=== PATIENT | female | born 1980 | race Caucasian/White ===

== ENCOUNTER → 2016-12-06 | Outpatient (CLI) | payer BC ==
--- NOTE | 2016-12-06 09:53 | USB ---
Reason for exam: clinical finding. History: Family history of breast cancer in maternal grandmother at age 74. Took hormonal contraceptives for 1 month. Indicated problem(s): pain in both breasts. Physical Findings: Nurse Summary: pt states palpable on left has increased in size 4 o'clock palpable 2c oval, mobile, only faint rash noted by nurse left breast 12 o'clock (nurse renata). US Breast LT Left breast ultrasound including all four quadrants, the retroareolar region and axilla demonstrates a 0.3 x 0.3 x 0.3cm lesion too small to characterize at 6 o'clock, a 0.2 x 0.2 x 0.1cm lesion too small to characterize at 9 o'clock and a 0.7 x 0.5 x 0.3cm oval, mixed lesion at 11 o'clock. These results were verbally communicated with the patient and result sheet given to the patient on 12/06/16. ASSESSMENT: Probably benign, BI-RAD 3 RECOMMENDATION: Ultrasound of the left breast in 6 months. Manage patient on a clinical basis.
== END | disposition home or self-care (01) ==
LOC: RADUSWWP 09:01
PROVIDERS: ATTEND Surgery
DX: N60.09 Solitary cyst of unspecified breast (principal)

== ENCOUNTER 2016-12-29 08:22 | Day surgery (SDC) | payer BC ==
[2016-12-24 16:12] VITALS: BMI 29.6
--- NOTE | 2016-12-29 08:17 | P.GSHP ---
History of Present Illness H&P Date: 12/29/16 Chief Complaint: Left breast mass Patient here today for left breast biopsy. She was seen in late October. She saw her guest specialist prior to that to felt a small lump in the left breast laterally. She has been able to feel a mass in that area since 2 years ago. Mild pain at times. She had a mammogram that was normal. An ultrasound was performed which showed a few small cystic appearing lesions that were not in the location of the palpable mass. She is family history of breast cancer and her grandmother. No prior biopsies. Past Medical History Past Medical History: Thyroid Disorder Additional Past Medical History / Comment(s): BULGING DISC. HYPERPARATHYROID History of Any Multi-Drug Resistant Organisms: None Reported Past Surgical History: Adenoidectomy Additional Past Surgical History / Comment(s): SUB THYROIDECTOMY. BMT. WISDOM TEETH PULLED UNDER ANESTHESIA Past Anesthesia/Blood Transfusion Reactions: Postoperative Nausea & Vomiting ( PONV) Past Psychological History: Anxiety Smoking Status: Current every day smoker Past Alcohol Use History: Occasional Additional Past Alcohol Use History / Comment(s): STARTED SMOKING AGE 18 SMOKES 1/2 PPD Past Drug Use History: None Reported - Past Family History Father Family Medical History: Deep Vein Thrombosis (DVT), Pulmonary Embolus Sister(s) Family Medical History: Pulmonary Embolus Medications and Allergies Home Medications Medication Instructions Recorded Confirmed Type Hydrocodone/Acetaminophen [Vicodin 1 tab PO Q6HR PRN 12/24/16 12/24/16 History 5-300 mg Tablet] Levothyroxine Sodium [Tirosint] 137 mcg PO DAILY 12/24/16 12/24/16 History Ranitidine HCl [Zantac] 150 mg PO DAILY PRN 12/24/16 12/24/16 History Sertraline [Zoloft] 150 mg PO DAILY 12/24/16 12/24/16 History predniSONE 0 mg PO DIRECTED 12/24/16 12/24/16 History Allergies Allergy/AdvReac Type Severity Reaction Status Date / Time No Known Allergies Allergy Verified 12/24/16 16:03 Surgical - Exam Physical exam: General: Well-developed, well-nourished HEENT: Normocephalic, sclerae nonicteric Abdomen: Nontender, nondistended Breast: Right breast without masses or adenopathy left breast with a 4 x 8 mm mass at 2:00 closer to the axilla Extremities: No edema Neuro: Alert and oriented Assessment and Plan (1) Left breast mass Narrative/Plan: Will proceed with left breast biopsy at this time. Risks of bleeding infection dimpling and scarring were discussed. She understands and wishes to proceed. Status: Acute
[~2016-12-29 08:22] MED LIST: DEXAMETHASONE SOD PHOSPHATE 10 MG/ML 1 ML VIAL IV ONE; HYDROmorphone 1 MG/ML 1 ML SYRINGE IVP PRN; LACTATED RINGERS 1,000 ML IV SCH; MIDAZOLAM 2 MG/2 ML VIAL IV PRN; ONDANSETRON 4 MG/2 ML VIAL IVP ONE; Pre Op ABX Message 1 EACH MISC MISCELLANE ONE
[2016-12-29 08:44] VITALS: RESP 16; TEMP 98.3
[2016-12-29] MEDS ORDERED: LIDOCAINE 1% 20 ML VIAL (10MG/ML) FOR IV START INTRADERMA ONE (08:54)
[2016-12-29] MEDS ORDERED: HYDROCORTISONE SUCCINATE 100 MG/2 ML VIAL IV ONE (08:59)
[2016-12-29 09:06] LABS: Glucose,Whole Blood 84 mg/dL (75-99)
[2016-12-29] MEDS ORDERED: LIDOCAINE 1% INJ 10MG/ML (20 ML MDV) ONE (09:33)
[2016-12-29] MEDS ORDERED: MIDAZOLAM 2 MG/2 ML VIAL ONE (09:33)
[2016-12-29] MEDS ORDERED: KETAMINE 10 MG/ML 20 ML VIAL ONE (09:33)
[2016-12-29] MEDS ORDERED: fentaNYL (PF) 50 MCG/ML 2 ML AMP ONE (09:33)
[2016-12-29] MEDS ORDERED: PROPOFOL 10 MG/ML 20 ML VIAL IV ONE (09:33)
[2016-12-29] MEDS ORDERED: BUPIVACAIN-EPI 0.25%-1:200,000 30 ML VIAL SQ ONE ×2 (09:52)
[2016-12-29] MEDS ORDERED: NALOXONE 0.4 MG/ML 1 ML VIAL IV PRN (10:19)
[2016-12-29] MEDS ORDERED: HYDROcodone/APAP 5-325MG 1 EACH TAB PO PRN (10:19)
--- NOTE | 2016-12-29 10:26 | P.PCN ---
Date of Procedure: 12/29/16 Procedure(s) Performed: PREOPERATIVE DIAGNOSIS: Left breast mass POSTOPERATIVE DIAGNOSIS: Same PROCEDURE: Left breast biopsy SURGEON: Simba EBL: Minimal ANESTHESIA: Vivek COMPLICATIONS: None OPERATIVE PROCEDURE: Patient's place never table in supine position. The patient's left breast was prepped and draped in usual sterile fashion. The patient had a 1 cm mass present at the 2 o'clock position. A curvilinear incision was made overlying the palpable mass. The subcutaneous tissues were divided. The mass was excised with use of electrocautery. A small blood vessel was ligated using 3-0 Vicryl ties. The subcutaneous tissues were then closed using 3-0 Vicryl sutures. The skin was closed using a running 4-0 Monocryl subcuticular stitch. Steri-Strips and sterile dressings were applied. DISPOSITION: Stable to recovery room
[2016-12-29 10:33] VITALS: BP 114/75; PULSE 76
== END 2016-12-29 11:21 | disposition home or self-care (01) ==
LOC: OR 08:22
PROVIDERS: ATTEND Surgery
DX: N60.32 Fibrosclerosis of left breast (principal); N60.12 Diffuse cystic mastopathy of left breast; N62 Hypertrophy of breast; Z80.3 Family history of malignant neoplasm of breast; F17.200 Nicotine dependence, unspecified, uncomplicated; Z79.899 Other long term (current) drug therapy; F33.9 Major depressive disorder, recurrent, unspecified
CPT/HCPCS: 81025; 88305; 19101; J2250; J1100; J1720; J2405; J2001; J3010; J2704

== ENCOUNTER → 2017-01-05 | Outpatient (CLI) | payer BC ==
[2017-01-05 10:12] LABS: ALT 21 U/L (9-52); AST 12 U/L (14-36); Alkaline Phosphatase 47 U/L (38-126); Anion Gap 10 mmol/L; Blood Urea Nitrogen 17 mg/dL (7-17); Calcium 9.3 mg/dL (8.4-10.2); Carbon Dioxide 25 mmol/L (22-30); Chloride 106 mmol/L (98-107); Glucose 97 mg/dL (74-99); Non-African American GFR(MDRD) >60 (>60 ml/min/1.73 sqM); Potassium 4.4 mmol/L (3.5-5.1); Sodium 141 mmol/L (137-145); Total Bilirubin 0.5 mg/dL (0.2-1.3); Total Protein 6.9 g/dL (6.3-8.2)
== END | disposition home or self-care (01) ==
LOC: LABWHC1 08:56
PROVIDERS: ATTEND Internal Medicine Endocrinology, Diabetes & Metabolism
DX: E21.3 Hyperparathyroidism, unspecified (principal); E03.8 Other specified hypothyroidism
CPT/HCPCS: 36415; 80053; 82306; 83970; 84443

== ENCOUNTER → 2017-01-05 | Outpatient (CLI) | payer BC ==
--- NOTE | 2017-01-05 09:56 | MR ---
EXAMINATION TYPE: MR lumbar spine wo con DATE OF EXAM: 01/05/2017 8:47 AM COMPARISON: NONE HISTORY: 36-year-old female with low back pain TECHNIQUE: Multiplanar, multisequence images of the lumbar spine were acquired. FINDINGS: Vertebral body heights are preserved and alignment is maintained. There is yovo-fx-[id number] desiccation of the L4-L5 and L5-S1 intervertebral disc with mild disc space narrowing at L4-L5 and bulging discs at both levels. There are mixed Modic endplate changes at L4-L5 relating to the degenerative disc disease and a small superior endplate Schmorl's node of L5. No suspicious bone marrow replacement. Conus medullaris is normal. From T12-L3 levels, no spinal canal or foraminal stenosis. At L3-L4, no significant spinal canal or neuroforaminal stenosis. At L4-L5, there is bulging disc and mild facet degenerative change. Changes result in mild right neur oforaminal stenosis without spinal canal stenosis. At L5-S1, bulging disc with mild facet degenerative change. There is mild left neural foraminal steno sis without spinal canal stenosis. No prevertebral or paravertebral soft tissue abnormality. IMPRESSION: 1. Uciw-gc-axqmieim degenerative disc disease at L4-L5 and L5-S1 with corresponding mild facet arthro tiffanie. 2. There is prominent associated mixed Modic endplate change at L4-L5 and a small L5 superior endplat e Schmorl's node. 3. Changes result in mild right-sided neural foraminal stenosis at L4-L5 and mild on the left at L5-S 1. 4. No high-grade canal or foraminal compromise.
== END | disposition home or self-care (01) ==
LOC: RADMRIMAIN 08:15
PROVIDERS: ATTEND Orthopaedic Surgery Orthopaedic Surgery of the Spine
DX: M54.16 Radiculopathy, lumbar region (principal); M51.37 Other intervertebral disc degeneration, lumbosacral region
CPT/HCPCS: 72148

== ENCOUNTER → 2017-06-15 | Outpatient (CLI) | payer BC ==
--- NOTE | 2017-06-15 12:01 | USB ---
Reason for exam: follow-up at short interval from prior study. History: Family history of breast cancer in maternal grandmother at age 74. Took hormonal contraceptives for 1 month. Physical Findings: Nurse did not find any significant physical abnormalities on exam. US Breast LT Left breast ultrasound includes all four quadrants, the retroareolar region and axilla. Finding demonstrates a 8 x 4 x 9mm oval, cystic lesion at 12 o'clock and a 3 x 3 x 3mm oval, cystic lesion at 6 o'clock, unchanged from previous. Both benign. These results were verbally communicated with the patient and result sheet given to the patient on 06/15/17. ASSESSMENT: Benign, BI-RAD 2 RECOMMENDATION: Routine screening mammogram of both breasts at age 40. (unless clinical indication to start sooner)
== END | disposition home or self-care (01) ==
LOC: RADUSWWP 10:17
PROVIDERS: ATTEND Surgery
DX: N63 Unspecified lump in breast (principal)

== ENCOUNTER 2019-02-08 10:36 | Emergency (ER) | payer BC ==
[2019-02-08 10:53] VITALS: BP 133/94; PULSE 94; RESP 20; TEMP 98.2
[2019-02-08] MEDS ORDERED: KETOROLAC 30 MG/ML 1 ML VIAL IVP STA (11:24)
[2019-02-08] MEDS ORDERED: methylPREDNISolone SOD SUCCI 125 MG/2 ML VIAL IV STA (11:24)
[2019-02-08] MEDS ORDERED: HYDROcodone/APAP 5-325MG 1 EACH TAB PO STA (11:27)
--- NOTE | 2019-02-08 11:29 | ED ---
Neck Injury/Pain HPI - General Chief Complaint: Neck Pain/Injury Stated Complaint: head & neck pain Time Seen by Provider: 02/08/19 11:14 Source: RN notes reviewed, old records reviewed Mode of arrival: ambulatory - History of Present Illness Initial Comments: This patient's a 30-year-old female, who presents emergency Department today with complaints of neck pain with any significant injury. Patient reports she has pain with any range of motion. 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.Patient denies any recent fever, chills, shortness of breath, chest pain, back pain, abdominal pain, nausea vomiting, numbness or tingling, dysuria or hematuria, constipation or diarrhea, headaches or visual changes, or any other current symptoms - Related Data Home Medications Medication Instructions Recorded Confirmed Levothyroxine Sodium [Tirosint] 137 mcg PO DAILY 12/24/16 02/08/19 Ranitidine HCl [Zantac] 150 mg PO DAILY PRN 12/24/16 02/08/19 Cholecalciferol [Vitamin D3] 5,000 unit PO DAILY 02/08/19 02/08/19 Previous Rx's Medication Instructions Recorded Cyclobenzaprine [Flexeril] 10 mg PO TID #12 tab 02/08/19 Dexamethasone 0.75 mg PO DAILY #12 tab 02/08/19 Ibuprofen 600 mg PO TID #20 tablet 02/08/19 Allergies Allergy/AdvReac Type Severity Reaction Status Date / Time No Known Allergies Allergy Verified 02/08/19 11:16 Review of Systems ROS Statement: Those systems with pertinent positive or pertinent negative responses have been documented in the HPI. ROS Other: All systems not noted in ROS Statement are negative. Past Medical History Past Medical History: Thyroid Disorder Additional Past Medical History / Comment(s): BULGING DISC. HYPERPARATHYROID History of Any Multi-Drug Resistant Organisms: None Reported Past Surgical History: Adenoidectomy Additional Past Surgical History / Comment(s): SUB THYROIDECTOMY. BMT. WISDOM TEETH PULLED UNDER ANESTHESIA, breast biopsy in December-benign Past Anesthesia/Blood Transfusion Reactions: Postoperative Nausea & Vomiting (PONV) Past Psychological History: Anxiety Smoking Status: Current every day smoker Past Alcohol Use History: Occasional Past Drug Use History: None Reported - Past Family History Father Family Medical History: Deep Vein Thrombosis (DVT), Pulmonary Embolus Sister(s) Family Medical History: Pulmonary Embolus General Exam - General Exam Comments Initial Comments: Physical 38-year-old female. Alert and oriented. No distress. General appearance: alert, in no apparent distress Head exam: Present: atraumatic, normocephalic, normal inspection Eye exam: Present: normal appearance, PERRL, EOMI. Absent: scleral icterus, conjunctival injection, periorbital swelling ENT exam: Present: normal exam, other (Psoriasis over the left ear.) Neck exam: Present: normal inspection, tenderness (Patient has significant cervical spinal tenderness.). Absent: meningismus, lymphadenopathy Respiratory exam: Present: normal lung sounds bilaterally. Absent: respiratory distress, wheezes, rales, rhonchi, stridor Cardiovascular Exam: Present: regular rate, normal rhythm, normal heart sounds. Absent: systolic murmur, diastolic murmur, rubs, gallop, clicks GI/Abdominal exam: Present: soft, normal bowel sounds. Absent: distended, tenderness, guarding, rebound, rigid Course Vital Signs 02/08/19 10:50 Temperature 98.2 F Pulse Rate 94 Respiratory 20 Rate Blood Pressure 133/94 O2 Sat by Pulse 98 Oximetry Medical Decision Making - Medical Decision Making This is a 30-year-old female presents emergency Department today with complaints of neck pain and spasming for the past and half. Patient has no significant fever or chills at this time. She is complains of significant pain with any range of motion. At this time Patient has normal lab work. She was given IV Toradol slight Medrol and one by mouth pain medication. Patient will be discharged at this time with diagnosis of a parasite a muscle spasm. Discussed she can start steroids and inflammatory medicine and short course of pain medicine. Patient understands treatment plan will comply. Term parameters were discussed. - Lab Data Result diagrams: 02/08/19 11:46 02/08/19 11:46 Lab Results 02/08/19 02/08/19 Range/Units 11:46 11:46 WBC 5.5 (3.8-10.6) k/uL RBC 4.82 (3.80-5.40) m/uL Hgb 14.8 (11.4-16.0) gm/dL Hct 44.8 (34.0-46.0) % MCV 92.9 (80.0-100.0) fL MCH 30.6 (25.0-35.0) pg MCHC 33.0 (31.0-37.0) g/dL RDW 13.6 (11.5-15.5) % Plt Count 204 (150-450) k/uL Neutrophils % 69 % Lymphocytes % 21 % Monocytes % 4 % Eosinophils % 3 % Basophils % 1 % Neutrophils # 3.8 (1.3-7.7) k/uL Lymphocytes # 1.2 (1.0-4.8) k/uL Monocytes # 0.2 (0-1.0) k/uL Eosinophils # 0.2 (0-0.7) k/uL Basophils # 0.0 (0-0.2) k/uL Sodium 140 (137-145) mmol/L Potassium 4.7 (3.5-5.1) mmol/L Chloride 108 H (98-107) mmol/L Carbon Dioxide 26 (22-30) mmol/L Anion Gap 6 mmol/L BUN 11 (7-17) mg/dL Creatinine 0.84 (0.52-1.04) mg/dL Est GFR (CKD-EPI)AfAm >90 (>60 ml/min/1.73 sqM) Est GFR (CKD-EPI)NonAf 88 (>60 ml/min/1.73 sqM) Glucose 94 (74-99) mg/dL Calcium 9.5 (8.4-10.2) mg/dL - Radiology Data Radiology results: report reviewed Normal CT of the brain. Mild mucosal thickening within the paraspinous. Cervical kyphosis which is nonspecific related to muscle spasm or positioning. No acute osseous abnormality within the cervical spine. Disposition Clinical Impression: Spasm of cervical paraspinous muscle Disposition: HOME SELF-CARE Condition: Good Instructions (If sedation given, give patient instructions): Cervical Strain (ED) Additional Instructions: Patient advised to apply warm compresses over the neck. Take the steroids and muscle relaxers as prescribed. Patient should follow-up with primary care doctor and neurology. Return to the emergency department if any alarming signs or symptoms occur. Prescriptions: Dexamethasone 0.75 mg PO DAILY #12 tab Cyclobenzaprine [Flexeril] 10 mg PO TID #12 tab Ibuprofen 600 mg PO TID #20 tablet Is patient prescribed a controlled substance at d/c from ED?: No Referrals: Randa Flores MD [Primary Care Provider] - 1-2 days Time of Disposition: 12:36
[2019-02-08 12:07] LABS: Basophils % (A) 1 %; Eosinophils # (A) 0.2 k/uL (0-0.7); Eosinophils % (A) 3 %; HCT 44.8 % (34.0-46.0); HGB 14.8 gm/dL (11.4-16.0); Lymphocytes # (A) 1.2 k/uL (1.0-4.8); Lymphocytes % (A) 21 %; MCH 30.6 pg (25.0-35.0); MCV 92.9 fL (80.0-100.0); Mean Platelet Volume 9.6; Monocytes # (A) 0.2 k/uL (0-1.0); Monocytes % (A) 4 %; Neutrophils # (A) 3.8 k/uL (1.3-7.7); Neutrophils % (A) 69 %; Platelet Count 204 k/uL (150-450); RBC 4.82 m/uL (3.80-5.40); RDW 13.6 % (11.5-15.5); WBC 5.5 k/uL (3.8-10.6)
--- NOTE | 2019-02-08 12:10 | CT ---
EXAMINATION TYPE: CT brain burak wo con DATE OF EXAM: 02/08/2019 COMPARISON: 06/15/2016 HISTORY: Sudden onset headache and neck pain. CT DLP: 1225.2 mGycm, Automated exposure control for dose reduction was used. CONTRAST: None CT of the brain is performed utilizing 3 mm thick sections through the posterior fossa and 3 mm thick sections through the remaining calvarium. Study is performed within 24 hours of arrival to the hospital. No abnormal hyperdensity is present to suggest an acute intracranial hemorrhage. No mass lesion is evident. No acute infarcts are evident. Ventricles and sulci are appropriate for the patient age. There is some mucosal thickening within posterior ethmoid air cells. Minimal mucosal thickening is wi thin the left sphenoid sinus. Mastoid air cells are underpneumatized. IMPRESSIONS: 1. Normal CT brain. 2. Mild mucosal thickening within paranasal sinuses. CT cervical spine. COMPARISON: None CT of the cervical spine is performed in the axial plane at 2 mm thick sections. Reconstructed image s in the coronal, and sagittal plane are reviewed on the computer. No acute fractures are evident. There is a cervical kyphosis centered at C5. This could be related to patient positioning or muscle s pasm. Disc heights are preserved. Vertebral body heights are preserved. No spinal canal stenosis is evident. No neural foraminal stenosis is evident. IMPRESSIONS: 1. Cervical kyphosis which is nonspecific could be related to muscle spasm or patient positioning. 2. No acute osseous abnormality cervical spine
[2019-02-08 12:16] LABS: Anion Gap 6 mmol/L; Blood Urea Nitrogen 11 mg/dL (7-17); Calcium 9.5 mg/dL (8.4-10.2); Carbon Dioxide 26 mmol/L (22-30); Chloride 108 mmol/L (98-107); Glucose 94 mg/dL (74-99); Potassium 4.7 mmol/L (3.5-5.1); Sodium 140 mmol/L (137-145)
== END 2019-02-08 13:17 | disposition home or self-care (01) ==
LOC: EC 10:36
DX: M62.838 Other muscle spasm (principal); M40.292 Other kyphosis, cervical region; J34.89 Other specified disorders of nose and nasal sinuses; L40.9 Psoriasis, unspecified; E21.3 Hyperparathyroidism, unspecified; F17.200 Nicotine dependence, unspecified, uncomplicated; Z79.890 Hormone replacement therapy
CPT/HCPCS: 36415; 80048; 85025; 72125; 70450; 99284; 96374; 96375; J2930; J1885

== ENCOUNTER 2019-04-04 15:13 | Observation (INO) | payer BC ==
[2019-04-04] MEDS ORDERED: CIPROFLOXACIN-DEXAMETH 0.3-0.1% DROPS 7.5 ML BTL LEFT EAR STA (16:24)
--- NOTE | 2019-04-04 17:01 | ED ---
General Adult HPI - General Source: patient, RN notes reviewed, old records reviewed Mode of arrival: ambulatory Limitations: no limitations <Sachi Elizabeth - Last Filed: 04/04/19 17:25> <Hilario Mercedes - Last Filed: 04/04/19 19:02> - General Chief complaint: Skin/Abscess/Foreign Body Stated complaint: cellulitis Time Seen by Provider: 04/04/19 15:46 - History of Present Illness Initial comments: 38-year-old female presents return today for evaluation for complaints of left ear pain and swelling. Patient reports that she has history of psoriasis over the left ear. Patient states she is trying to heal this with hydrocortisone cream. She states that on Tuesday morning she woke up with severe ear pain. She reports that she was started on Keflex. 3 days ago and was switched to Bactrim yesterday. Patient reports that she was sent here for further medications continue to have pain. She is having pain radiating from her face into her jaw and even has had eye drainage. Patient reports that she is getting in 10 days and is concerned how she will look with this ear swelling and pain. (Sachi Elizabeth) - Related Data Home Medications Medication Instructions Recorded Confirmed Levothyroxine Sodium [Tirosint] 137 mcg PO DAILY 12/24/16 04/04/19 Cholecalciferol [Vitamin D3] 5,000 unit PO DAILY 02/08/19 04/04/19 Ibuprofen 600 mg PO TID PRN 04/04/19 04/04/19 Sulfamethox-Tmp 800-160Mg [Bactrim 1 tab PO BID 04/04/19 04/04/19 DS 800-160 mg] Allergies Allergy/AdvReac Type Severity Reaction Status Date / Time No Known Allergies Allergy Verified 04/04/19 15:51 Review of Systems ROS Other: All systems not noted in ROS Statement are negative. <Sachi Elizabeth - Last Filed: 04/04/19 17:25> ROS Other: All systems not noted in ROS Statement are negative. <Hilario Mercedes - Last Filed: 04/04/19 19:02> ROS Statement: Those systems with pertinent positive or pertinent negative responses have been documented in the HPI. Past Medical History Past Medical History: Thyroid Disorder Additional Past Medical History / Comment(s): BULGING DISC. HYPERPARATHYROID History of Any Multi-Drug Resistant Organisms: None Reported Past Surgical History: Adenoidectomy Additional Past Surgical History / Comment(s): SUB THYROIDECTOMY. BMT. WISDOM TEETH PULLED UNDER ANESTHESIA, breast biopsy in December-benign Past Anesthesia/Blood Transfusion Reactions: Postoperative Nausea & Vomiting (PONV) Past Psychological History: Anxiety Smoking Status: Current every day smoker Past Alcohol Use History: Occasional Past Drug Use History: None Reported - Past Family History Father Family Medical History: Deep Vein Thrombosis (DVT), Pulmonary Embolus Sister(s) Family Medical History: Pulmonary Embolus <Sachi Elizabeth - Last Filed: 04/04/19 17:25> General Exam Limitations: no limitations General appearance: alert, in no apparent distress Head exam: Present: atraumatic, normocephalic, normal inspection Eye exam: Present: normal appearance, PERRL, EOMI. Absent: scleral icterus, conjunctival injection, periorbital swelling ENT exam: Present: mucous membranes moist. Absent: normal exam (Patient's left auricle is erythematous and edematous. Unable to visualize left TM due to swollen ear canal. Drainage from the ear canal. Patient is tender over the tragus.) Neck exam: Present: normal inspection. Absent: tenderness, meningismus, lymphadenopathy Respiratory exam: Present: normal lung sounds bilaterally. Absent: respiratory distress, wheezes, rales, rhonchi, stridor Cardiovascular Exam: Present: regular rate, normal rhythm, normal heart sounds. Absent: systolic murmur, diastolic murmur, rubs, gallop, clicks GI/Abdominal exam: Present: soft, normal bowel sounds. Absent: distended, tenderness, guarding, rebound, rigid Extremities exam: Present: normal inspection, full ROM, normal capillary refill. Absent: tenderness, pedal edema, joint swelling, calf tenderness Back exam: Present: normal inspection Neurological exam: Present: alert, oriented X3, CN II-XII intact Psychiatric exam: Present: normal affect, normal mood <Sachi Elizabeth - Last Filed: 04/04/19 17:25> - General Exam Comments Initial Comments: Pleasant 38-year-old female. Alert and oriented. No distress. (Sachi Flores) Course Vital Signs 04/04/19 04/04/19 15:19 16:12 Temperature 98.7 F 98.3 F Pulse Rate 92 92 Respiratory 18 16 Rate Blood Pressure 128/82 117/72 O2 Sat by Pulse 98 97 Oximetry Medical Decision Making <ClaraSachi - Last Filed: 04/04/19 17:25> - Lab Data Result diagrams: 04/04/19 16:50 04/04/19 16:50 <Hilario Mercedes - Last Filed: 04/04/19 19:02> - Medical Decision Making Patient is 38-year-old female present today for violation of left ear pain and swelling. Patient has evidence of perichondritis. Patient has been on Keflex and Bactrim outpatient only. Patient's ear canal was very swollen, I was able instill a Richard ear wick in place Ciprodex drops. Patient started on IV Levaquin for concern for pseudomonas infection. Dr. Mercedes took over the case at 5:27 PM. (Sachi Elizabeth) Patient reevaluated by myself, Dr. Mercedes. Patient does have moderate left ear swelling diffusely. There is tenderness on exam. Patient has been on 2 antibiotics as an outpatient. Case was crusted detail with Dr. Saucedo, covering for Dr. villegas who will admit. He is agreeable with Levaquin however recommends adding vancomycin. He is also agreeable with steroids and recommends solyu Medrol 40 mg every 8. (Hilario Mercedes) - Lab Data Lab Results 04/04/19 04/04/19 Range/Units 16:50 16:50 WBC 6.5 (3.8-10.6) k/uL RBC 4.02 (3.80-5.40) m/uL Hgb 12.5 (11.4-16.0) gm/dL Hct 36.6 (34.0-46.0) % MCV 91.1 (80.0-100.0) fL MCH 31.0 (25.0-35.0) pg MCHC 34.1 (31.0-37.0) g/dL RDW 14.0 (11.5-15.5) % Plt Count 150 (150-450) k/uL Neutrophils % 63 % Lymphocytes % 24 % Monocytes % 7 % Eosinophils % 3 % Basophils % 1 % Neutrophils # 4.1 (1.3-7.7) k/uL Lymphocytes # 1.6 (1.0-4.8) k/uL Monocytes # 0.4 (0-1.0) k/uL Eosinophils # 0.2 (0-0.7) k/uL Basophils # 0.0 (0-0.2) k/uL Sodium 137 (137-145) mmol/L Potassium 4.7 (3.5-5.1) mmol/L Chloride 109 H (98-107) mmol/L Carbon Dioxide 22 (22-30) mmol/L Anion Gap 6 mmol/L BUN 10 (7-17) mg/dL Creatinine 0.70 (0.52-1.04) mg/dL Est GFR (CKD-EPI)AfAm >90 (>60 ml/min/1.73 sqM) Est GFR (CKD-EPI)NonAf >90 (>60 ml/min/1.73 sqM) Glucose 78 (74-99) mg/dL Calcium 8.7 (8.4-10.2) mg/dL Disposition <Sachi Elizabeth - Last Filed: 04/04/19 17:25> Is patient prescribed a controlled substance at d/c from ED?: No Decision Time: 19:02 <Hilario Mercedes - Last Filed: 04/04/19 19:02> Clinical Impression: Cellulitis of ear Disposition: ADMITTED IP TO THIS HOSP Referrals: Randa Flores MD [Primary Care Provider] - 1-2 days
[2019-04-04 17:23] LABS: African American GFR (CKD) >90 (>60 ml/min/1.73 sqM); Anion Gap 6 mmol/L; Blood Urea Nitrogen 10 mg/dL (7-17); Calcium 8.7 mg/dL (8.4-10.2); Carbon Dioxide 22 mmol/L (22-30); Chloride 109 mmol/L (98-107); Glucose 78 mg/dL (74-99); Sodium 137 mmol/L (137-145)
[2019-04-04] MEDS ORDERED: SODIUM CHLORIDE 0.9% 1,000 ML IV ONE (17:24)
[2019-04-04] MEDS ORDERED: LEVOFLOXACIN 750MG-D5W PMX 750 MG in DEXTROSE/WATER 1 150ML.BAG IVPB STA (17:24)
[2019-04-04] MEDS ORDERED: KETOROLAC 30 MG/ML 1 ML VIAL IVP STA (17:24)
[2019-04-04 17:30] LABS: Potassium 4.7 mmol/L (3.5-5.1)
[2019-04-04] MEDS: SODIUM CHLORIDE 0.9% 1,000 ML IV SCH (18:11)
[2019-04-04 18:34] LABS: Basophils % (A) 1 %; Eosinophils # (A) 0.2 k/uL (0-0.7); Eosinophils % (A) 3 %; HCT 36.6 % (34.0-46.0); HGB 12.5 gm/dL (11.4-16.0); Lymphocytes # (A) 1.6 k/uL (1.0-4.8); Lymphocytes % (A) 24 %; MCHC 34.1 g/dL (31.0-37.0); MCV 91.1 fL (80.0-100.0); Mean Platelet Volume 10.6; Monocytes # (A) 0.4 k/uL (0-1.0); Monocytes % (A) 7 %; Neutrophils # (A) 4.1 k/uL (1.3-7.7); Neutrophils % (A) 63 %; Platelet Count 150 k/uL (150-450); RBC 4.02 m/uL (3.80-5.40); WBC 6.5 k/uL (3.8-10.6)
[2019-04-04] MEDS ORDERED: VANCOMYCIN IV PER PHARMACY 1 EACH MISC MISCELLANE PRN (19:04)
[2019-04-04] MEDS ORDERED: NALOXONE 0.4 MG/ML 1 ML VIAL IV PRN (19:05)
[2019-04-04] MEDS ORDERED: MORPHINE SULFATE 4 MG/ML SYRINGE IV PRN (19:05)
[2019-04-04] MEDS ORDERED: IBUPROFEN 400 MG TAB PO PRN (19:05)
[2019-04-04] MEDS: methylPREDNISolone SOD SUCCI 40 MG/ML 1 ML VIAL IV SCH (19:42)
[2019-04-04] MEDS ORDERED: VANCOMYCIN 1,250 MG in SODIUM CHLORIDE 0.9% 250 ML IVPB ONE (20:00)
[2019-04-04 20:10] VITALS: BMI 27.5
[2019-04-04] MEDS: traMADol 50 MG TAB PO PRN (22:04)
[2019-04-05] MEDS: methylPREDNISolone SOD SUCCI 40 MG/ML 1 ML VIAL IV SCH ×4 (00:14→23:11)
[2019-04-05] MEDS: traMADol 50 MG TAB PO PRN ×3 (03:10→15:03)
[2019-04-05] MEDS: VANCOMYCIN 1,250 MG in SODIUM CHLORIDE 0.9% 250 ML IVPB SCH ×3 (04:17→20:01)
[2019-04-05] MEDS: ACETAMINOPHEN TAB 325 MG TAB PO PRN ×3 (06:54→17:26)
[2019-04-05] MEDS: SODIUM CHLORIDE 0.9% 1,000 ML IV SCH ×3 (08:18→23:58)
[2019-04-05 10:12] LABS: ALT 14 U/L (9-52); AST 16 U/L (14-36); African American GFR (CKD) >90 (>60 ml/min/1.73 sqM); Albumin 3.4 g/dL (3.5-5.0); Alkaline Phosphatase 50 U/L (38-126); Anion Gap 4 mmol/L; Blood Urea Nitrogen 8 mg/dL (7-17); Calcium 8.8 mg/dL (8.4-10.2); Carbon Dioxide 24 mmol/L (22-30); Chloride 110 mmol/L (98-107); Glucose 162 mg/dL (74-99); Potassium 4.4 mmol/L (3.5-5.1); Sodium 138 mmol/L (137-145); Total Bilirubin 0.2 mg/dL (0.2-1.3)
[2019-04-05 10:15] LABS: Basophils % (A) 0 %; Eosinophils % (A) 0 %; HCT 37.9 % (34.0-46.0); HGB 12.4 gm/dL (11.4-16.0); Lymphocytes # (A) 0.9 k/uL (1.0-4.8); Lymphocytes % (A) 13 %; MCH 30.8 pg (25.0-35.0); MCHC 32.7 g/dL (31.0-37.0); MCV 94.1 fL (80.0-100.0); Mean Platelet Volume 9.8; Monocytes # (A) 0.2 k/uL (0-1.0); Monocytes % (A) 2 %; Neutrophils # (A) 5.9 k/uL (1.3-7.7); Neutrophils % (A) 84 %; Platelet Count 169 k/uL (150-450); RBC 4.03 m/uL (3.80-5.40); RDW 14.6 % (11.5-15.5)
--- NOTE | 2019-04-05 11:56 | P.HPIM ---
History of Present Illness H&P Date: 04/05/19 This is a 38-year-old female patient with complaints of left ear pain and swelling. Patient reports that she believes she has psoriasis and she had a scab any here in which she picked and then a few days later it became increasingly swollen and painful. She reports that she was started on Keflex a nd was switched to Bactrim both without any improvement. Patient reports she had swelling to jaw. Patient denies any fevers. Patient states her hearing is impaired to left ear. Patient also states she is getting in 10 days. Patient has has medical history of hypothyroidism anxiety and smoker. Patient started on Levaquin and vancomycin. Solu-Medrol also started. Swelling has significantly improved. Patient reports less pain to left ear since hospitalized. At this time patient denies any chest pain or shortness of breath. Patient denies nausea vomiting or diarrhea. Patient denies any urinary burning or frequency. Review of Systems please refer to HPI otherwise unremarkable Past Medical History Past Medical History: Thyroid Disorder Additional Past Medical History / Comment(s): BULGING DISC. HYPERPARATHYROID History of Any Multi-Drug Resistant Organisms: None Reported Past Surgical History: Adenoidectomy Additional Past Surgical History / Comment(s): SUB- THYROIDECTOMY. BMT. WISDOM TEETH PULLED UNDER ANESTHESIA, breast biopsy in December-benign Past Anesthesia/Blood Transfusion Reactions: Postoperative Nausea & Vomiting (PONV) Past Psychological History: Anxiety Smoking Status: Current every day smoker Past Alcohol Use History: Occasional Additional Past Alcohol Use History / Comment(s): STARTED SMOKING AGE 18 SMOKES 1/2 PPD Past Drug Use History: None Reported - Past Family History Father Family Medical History: Deep Vein Thrombosis (DVT), Pulmonary Embolus Sister(s) Family Medical History: Pulmonary Embolus Medications and Allergies Home Medications Medication Instructions Recorded Confirmed Type Levothyroxine Sodium [Tirosint] 137 mcg PO DAILY 12/24/16 04/04/19 History Cholecalciferol [Vitamin D3] 5,000 unit PO DAILY 02/08/19 04/04/19 History Ibuprofen 600 mg PO TID PRN 04/04/19 04/04/19 History Sulfamethox-Tmp 800-160Mg [Bactrim 1 tab PO BID 04/04/19 04/04/19 History DS 800-160 mg] Allergies Allergy/AdvReac Type Severity Reaction Status Date / Time garlic Allergy Diarrhea Verified 04/05/19 08:27 Physical Exam Vitals: Vital Signs Temp Pulse Pulse Resp BP BP Pulse Ox 04/05/19 09:05 98.4 F 82 16 104/60 95 04/05/19 00:15 98.1 F 81 16 100/62 95 04/04/19 20:05 97.7 F 72 14 123/74 97 04/04/19 19:28 73 18 106/76 96 04/04/19 16:12 98.3 F 92 16 117/72 97 04/04/19 15:19 98.7 F 92 18 128/82 98 Intake and Output 04/04/19 04/05/19 04/05/19 22:59 06:59 14:59 Other: # Voids 1 1 Weight 72.575 kg Head normocephalic. Left ear swollen and erythematous. Unable to see and canal due to increased swelling Neck supple Lungs clear to auscultation bilaterally no wheezing or crackles Heart regular rate and rhythm S1-S2, no rub or gallop Abdomen is soft nontender nondistended positive bowel sounds no hepatosplenomegaly Extremities no edema Neuro alert and orientated to 3 Results CBC & Chem 7: 04/05/19 09:47 04/05/19 09:47 Labs: Abnormal Lab Results - Last 24 Hours (Table) 04/04/19 04/05/19 04/05/19 Range/Units 16:50 09:47 09:47 Lymphocytes # 0.9 L (1.0-4.8) k/uL Chloride 109 H 110 H (98-107) mmol/L Glucose 162 H (74-99) mg/dL Total Protein 6.0 L (6.3-8.2) g/dL Albumin 3.4 L (3.5-5.0) g/dL Microbiology - Last 24 Hours (Table) 04/04/19 19:34 Gram Stain - Preliminary Ear - Left Wound Culture - Preliminary Thrombosis Risk Factor Assmnt - Choose All That Apply Any of the Below Risk Factors Present?: Yes Each Factor Represents 1 point: Obesity (BMI >25) Other Risk Factors: No Thrombosis Risk Factor Assessment Total Risk Factor Score: 1 Thrombosis Risk Factor Assessment Level: Low Risk Assessment and Plan Assessment: 1. Left ear cellulitis. Dr. Wade has been consulted for ENT. Patient started on Levaquin and vancomycin. Patient also on Solu-Medrol. 2. Partial thyroidectomy. Home thyroid medication resumed 3. Nicotine dependence. Patient educated greater than 3 minutes on smoking cessation. Nicotine patch will be ordered 4. History of anxiety DVT prophylaxis heparin. GI prophylaxis Protonix Time with Patient: Greater than 30 (Greater than 60% of the total time spent in counseling and coordination of care. I performed an examination of the patient and discussed their management with the Nurse Practitioner. I have reviewed the Nurse Practitioner's notes and agree with the documented findings and plan of care)
--- NOTE | 2019-04-05 14:40 | P.GSCN ---
History of Present Illness Consult date: 04/05/19 Reason for Consult: Left ear swelling. Requesting physician: Jessa Saucedo History of present illness: This patient is a 38-year-old white female who developed swelling to the left ear a few days ago. She has psoriasis with scratching her ear. Since that time her ear canal swelled and she has swelling around the auricle. Recent cultures showed staph aureus and pseudomonas which is a common pathogen with auricular chondritis. The pain is somewhat reduced since she's been present here in the hospital she notices a swollen left ear narrative ear canal. She had a ear wick placed in the left ear Review of Systems - Constitutional Denies anorexia, Denies chills - EENT Ears, nose, mouth and throat: Reports as per HPI - Cardiovascular Denies chest pain - Respiratory Denies congestion - Gastrointestinal Denies abdominal pain - Genitourinary Genitourinary: Denies abnormal vaginal bleeding Menstruation: Denies amenorrhea on BC - Musculoskeletal Denies atrophy - Integumentary Reports as per HPI - Neurological Denies ataxia - Psychiatric Denies change in appetite - Endocrine Denies excessive sweating - Hematologic/Lymphatic Denies easy bleeding Past Medical History Past Medical History: Thyroid Disorder Additional Past Medical History / Comment(s): BULGING DISC. HYPERPARATHYROID History of Any Multi-Drug Resistant Organisms: None Reported Past Surgical History: Adenoidectomy Additional Past Surgical History / Comment(s): SUB- THYROIDECTOMY. BMT. WISDOM TEETH PULLED UNDER ANESTHESIA, breast biopsy in December-benign Past Anesthesia/Blood Transfusion Reactions: Postoperative Nausea & Vomiting (PONV) Past Psychological History: Anxiety Smoking Status: Current every day smoker Past Alcohol Use History: Occasional Additional Past Alcohol Use History / Comment(s): STARTED SMOKING AGE 18 SMOKES 1/2 PPD Past Drug Use History: None Reported - Past Family History Father Family Medical History: Deep Vein Thrombosis (DVT), Pulmonary Embolus Sister(s) Family Medical History: Pulmonary Embolus Medications and Allergies Home Medications Medication Instructions Recorded Confirmed Type Levothyroxine Sodium [Tirosint] 137 mcg PO DAILY 12/24/16 04/04/19 History Cholecalciferol [Vitamin D3] 5,000 unit PO DAILY 02/08/19 04/04/19 History Ibuprofen 600 mg PO TID PRN 04/04/19 04/04/19 History Sulfamethox-Tmp 800-160Mg [Bactrim 1 tab PO BID 04/04/19 04/04/19 History DS 800-160 mg] Allergies Allergy/AdvReac Type Severity Reaction Status Date / Time garlic Allergy Diarrhea Verified 04/05/19 08:27 Surgical - Exam Osteopathic Statement: *. No significant issues noted on an osteopathic structural exam other than those noted in the History and Physical/Consult. Vital Signs Temp Pulse Resp BP Pulse Ox 98.7 F 92 18 128/82 98 04/04/19 15:19 04/04/19 15:19 04/04/19 15:19 04/04/19 15:19 04/04/19 15:19 - General well developed, well nourished, no distress - Eyes PERRL, normal ocular movement - ENT Head is normocephalic the face is symmetric there's no abnormal movements is no tenderness to the sinuses are mastoids. There is no nodules or tenderness on scalp. Left auricle is swollen in the left ear canal is narrowed. The left ear is tender. Right ears unremarkable. Nose is patent mouth and throat unremarkable patient does have large tonsils. Neck shows some obvious cervical lymphadenopathy. - Neck no masses, no bruits, trachea midline, no venous distension - Respiratory normal expansion, normal respiratory effort - Abdomen Abdomen: soft - Neurologic normal coordination, normal sensation - Musculoskeletal normal gait, normal posture - Psychiatric oriented to time, oriented to person, oriented to place, speech is normal, memory intact Results - Labs 04/05/19 09:47 04/05/19 09:47 Abnormal Lab Results - Last 24 Hours (Table) 04/04/19 04/05/19 04/05/19 Range/Units 16:50 09:47 09:47 Lymphocytes # 0.9 L (1.0-4.8) k/uL Chloride 109 H 110 H (98-107) mmol/L Glucose 162 H (74-99) mg/dL Total Protein 6.0 L (6.3-8.2) g/dL Albumin 3.4 L (3.5-5.0) g/dL Microbiology - Last 24 Hours (Table) 04/04/19 19:34 Gram Stain - Preliminary Ear - Left Wound Culture - Preliminary Diabetes panel 04/04/19 04/05/19 Range/Units 16:50 09:47 Sodium 137 138 (137-145) mmol/L Potassium 4.7 4.4 (3.5-5.1) mmol/L Chloride 109 H 110 H (98-107) mmol/L Carbon Dioxide 22 24 (22-30) mmol/L BUN 10 8 (7-17) mg/dL Creatinine 0.70 0.64 (0.52-1.04) mg/dL Glucose 78 162 H (74-99) mg/dL Calcium 8.7 8.8 (8.4-10.2) mg/dL AST 16 (14-36) U/L ALT 14 (9-52) U/L Alkaline Phosphatase 50 (38-126) U/L Total Protein 6.0 L (6.3-8.2) g/dL Albumin 3.4 L (3.5-5.0) g/dL Calcium panel 04/04/19 04/05/19 Range/Units 16:50 09:47 Calcium 8.7 8.8 (8.4-10.2) mg/dL Albumin 3.4 L (3.5-5.0) g/dL Pituitary panel 04/04/19 04/05/19 Range/Units 16:50 09:47 Sodium 137 138 (137-145) mmol/L Potassium 4.7 4.4 (3.5-5.1) mmol/L Chloride 109 H 110 H (98-107) mmol/L Carbon Dioxide 22 24 (22-30) mmol/L BUN 10 8 (7-17) mg/dL Creatinine 0.70 0.64 (0.52-1.04) mg/dL Glucose 78 162 H (74-99) mg/dL Calcium 8.7 8.8 (8.4-10.2) mg/dL Adrenal panel 04/04/19 04/05/19 Range/Units 16:50 09:47 Sodium 137 138 (137-145) mmol/L Potassium 4.7 4.4 (3.5-5.1) mmol/L Chloride 109 H 110 H (98-107) mmol/L Carbon Dioxide 22 24 (22-30) mmol/L BUN 10 8 (7-17) mg/dL Creatinine 0.70 0.64 (0.52-1.04) mg/dL Glucose 78 162 H (74-99) mg/dL Calcium 8.7 8.8 (8.4-10.2) mg/dL Total Bilirubin 0.2 (0.2-1.3) mg/dL AST 16 (14-36) U/L ALT 14 (9-52) U/L Alkaline Phosphatase 50 (38-126) U/L Total Protein 6.0 L (6.3-8.2) g/dL Albumin 3.4 L (3.5-5.0) g/dL Assessment and Plan (1) Chondritis of auricle Current Visit: Yes Status: Acute Code(s): H61.039 - CHONDRITIS OF EXTERNAL EAR, UNSPECIFIED EAR SNOMED Code(s): 04017437 Plan: This patient is doing well with current medical therapy. And a antibiotic coverage for staph aureus and pseudomonas aeruginosa is recommended. I would use topical Ciprodex and the ear canal until it opens. Resting with head elevated is important. I understand the patient is getting in 9 days and I anticipate that left ear should be markedly improved by then. I've given the patient my card and the patient is to follow up with me as needed. Time with Patient: Greater than 30
[2019-04-05] MEDS ORDERED: FLUCONAZOLE 100 MG TAB PO ONE (17:00)
[2019-04-05 17:28] LABS: Glucose,Whole Blood 137 mg/dL (75-99)
[2019-04-05] MEDS: INSULIN ASPART (NovoLOG) 100 UNIT/ML VIAL SQ SCH ×2 (17:31→20:13)
[2019-04-05] MEDS ORDERED: LEVOFLOXACIN 750MG-D5W PMX 750 MG in DEXTROSE/WATER 1 150ML.BAG IVPB SCH (18:00)
[2019-04-05] MEDS ORDERED: LEVOFLOXACIN 750 MG TAB PO SCH (18:00)
[2019-04-05] MEDS: CIPROFLOXACIN-DEXAMETH 0.3-0.1% DROPS 7.5 ML BTL BOTH EARS SCH (20:03)
[2019-04-05] MEDS: HEPARIN SODIUM,PORCINE 5,000 UNIT/ML 1 ML VIAL SQ SCH ×2 (20:03→22:00)
[2019-04-05 20:11] LABS: Glucose,Whole Blood 136 mg/dL (75-99)
--- NOTE | 2019-04-05 22:15 | P.CONS ---
History of Present Illness - Reason for Consult Consult date: 04/05/19 Left ear cellulitis Requesting physician: Jessa Saucedo - Chief Complaint Left ear pain and swelling x few days - History of Present Illness Patient is a 38-year-old female in the hospital with left ear pain swelling and redness symptoms started a few days prior to presentation hospital apparently the patient did scratch the left ear and tried to fern picker something subsequently the patient having swelling and redness and pain. Described to be throbbing almost 8 out of 10 with severe with some radiation to the anterior jaw patient has been running low-grade fever with chills patient has been evaluated in outpatient setting culture has been obtained and has been treated with oral Keflex and Bactrim without any improvement subsequently patient presented to the hospital for further evaluation of the same, on presentation the patient has been afebrile her white count was not significantly elevated patient has been started on oral Levaquin and IV vancomycin infection is considered for further recommendation regarding antibiotic patient did have cultures obtained prior to being admitted to the hospital which is currently growing gram-negative and staph aureus , patient apparently did have some drainage initially which was mild in amount no further drainage since being in the hospital Review of Systems CONSTITUTIONAL: Positive for weakness. Low-grade Fever EYES: No complaint. ENT: As per history of present illness RESPIRATORY: No complaint. CARDIOVASCULAR: No complaint. GENITOURINARY: No complaint. GASTROINTESTINAL: No complaint. MUSCULOSKELETAL: No complaint. INTEGUMENTARY: No complaint. PSYCHOLOGICAL: No complaint. ENDOCRINE: No complaint. NEUROLOGIC: No complaint. Past Medical History Past Medical History: Thyroid Disorder Additional Past Medical History / Comment(s): BULGING DISC. HYPERPARATHYROID History of Any Multi-Drug Resistant Organisms: None Reported Past Surgical History: Adenoidectomy Additional Past Surgical History / Comment(s): SUB- THYROIDECTOMY. BMT. WISDOM TEETH PULLED UNDER ANESTHESIA, breast biopsy in December-benign Past Anesthesia/Blood Transfusion Reactions: Postoperative Nausea & Vomiting (PONV) Past Psychological History: Anxiety Smoking Status: Current every day smoker Past Alcohol Use History: Occasional Additional Past Alcohol Use History / Comment(s): STARTED SMOKING AGE 18 SMOKES 1/2 PPD Past Drug Use History: None Reported - Past Family History Father Family Medical History: Deep Vein Thrombosis (DVT), Pulmonary Embolus Sister(s) Family Medical History: Pulmonary Embolus Medications and Allergies Home Medications Medication Instructions Recorded Confirmed Type Levothyroxine Sodium [Tirosint] 137 mcg PO DAILY 12/24/16 04/04/19 History Cholecalciferol [Vitamin D3] 5,000 unit PO DAILY 02/08/19 04/04/19 History Ibuprofen 600 mg PO TID PRN 04/04/19 04/04/19 History Sulfamethox-Tmp 800-160Mg [Bactrim 1 tab PO BID 04/04/19 04/04/19 History DS 800-160 mg] Allergies Allergy/AdvReac Type Severity Reaction Status Date / Time garlic Allergy Diarrhea Verified 04/05/19 08:27 Physical Exam Vitals: Vital Signs Temp Pulse Pulse Resp BP BP Pulse Ox 04/05/19 14:15 98.1 F 75 16 111/67 95 04/05/19 12:15 98.3 F 70 18 99/64 95 04/05/19 09:05 98.4 F 82 16 104/60 95 04/05/19 00:15 98.1 F 81 16 100/62 95 04/04/19 20:05 97.7 F 72 14 123/74 97 04/04/19 19:28 73 18 106/76 96 Intake and Output 04/05/19 04/05/19 04/05/19 06:59 14:59 22:59 Other: # Voids 1 2 GENERAL DESCRIPTION: Middle-aged female lying in bed, no distress. No tachypnea or accessory muscle of respiration use. HEENT: Shows Pallor , no scleral icterus. Oral mucous membrane is dry. No pharyngeal erythema or thrush Left external ear slightly swollen tender and warm to touch currently with no open wound or any drainage no drainage was noticed from the external auditory canal NECK: Trachea central, no thyromegaly. LUNGS: Unlabored breathing. Clear to auscultation anteriorly. No wheeze or crackle. HEART: S1, S2, regular rate and rhythm. No loud murmur ABDOMEN: Soft, no tenderness , guarding or rigidity, no organomegaly EXTREMITIES: No edema of feet. SKIN: No rash, no masses palpable. NEUROLOGICAL: The patient is awake, alert, oriented x3, mood and affect normal Results CBC & Chem 7: 04/05/19 09:47 04/05/19 09:47 Labs: Abnormal Lab Results - Last 24 Hours (Table) 0604/05/19 04/05/19 Range/Units 16:50 09:47 09:47 Lymphocytes # 0.9 L (1.0-4.8) k/uL Chloride 109 H 110 H (98-107) mmol/L Glucose 162 H (74-99) mg/dL Total Protein 6.0 L (6.3-8.2) g/dL Albumin 3.4 L (3.5-5.0) g/dL Microbiology - Last 24 Hours (Table) 04/04/19 19:34 Gram Stain - Preliminary Ear - Left Wound Culture - Preliminary Assessment and Plan Assessment: 1-patient with otitis externa-- the patient's symptoms started after the patient scratched and try to pick on her left ear with subsequent development of cellulitis and rapid progression that has failed to respond to outpatient oral Bactrim therapy in this patient IS currently showing history of for his the que stion of possible community associated MRSA and gram-negative bacilli possible Pseudomonas with ID sensitivity pending (1) Cellulitis of ear Current Visit: Yes Status: Acute Code(s): H60.10 - CELLULITIS OF EXTERNAL EAR, UNSPECIFIED EAR SNOMED Code(s): 79567034 (2) Chondritis of auricle Current Visit: Yes Status: Acute Code(s): H61.039 - CHONDRITIS OF EXTERNAL EAR, UNSPECIFIED EAR SNOMED Code(s): 75232812 Plan: 1-vancomycin pharmacy to dose target trough of 15 watching her kidney function and Vanco trough closely 2-discontinue Levaquin 3-start the patient on cefepime 2 g every 12 hours to cover for the gram- negative 4-discharge antibiotics will depend upon the culture report We will follow on clinical condition and cultures to further adjust his medication if needed Thank you for this consultation will follow this patient along with you Time with Patient: Greater than 30
[2019-04-05] MEDS: CEFEPIME 2 GM in SODIUM CHLORIDE 0.9% 100 ML IVPB SCH (23:09)
[2019-04-06] MEDS ORDERED: MELATONIN 5 MG TABLET PO SCH (00:30)
[2019-04-06] MEDS: ACETAMINOPHEN TAB 325 MG TAB PO PRN ×2 (00:52→06:46)
[2019-04-06] MEDS ORDERED: VANCOMYCIN TROUGH DUE 1 EACH MISC MISCELLANE ONE (03:00)
[2019-04-06] MEDS: VANCOMYCIN 1,250 MG in SODIUM CHLORIDE 0.9% 250 ML IVPB SCH ×2 (03:21→11:36)
[2019-04-06 03:26] LABS: Basophils % (A) 0 %; Eosinophils % (A) 0 %; HCT 35.6 % (34.0-46.0); HGB 11.7 gm/dL (11.4-16.0); Lymphocytes # (A) 1.1 k/uL (1.0-4.8); Lymphocytes % (A) 11 %; MCHC 32.8 g/dL (31.0-37.0); MCV 94.5 fL (80.0-100.0); Mean Platelet Volume 9.9; Monocytes # (A) 0.3 k/uL (0-1.0); Monocytes % (A) 3 %; Neutrophils # (A) 9.1 k/uL (1.3-7.7); Neutrophils % (A) 86 %; Platelet Count 179 k/uL (150-450); RBC 3.77 m/uL (3.80-5.40); RDW 14.5 % (11.5-15.5); WBC 10.5 k/uL (3.8-10.6)
[2019-04-06 03:40] LABS: ALT 43 U/L (9-52); AST 45 U/L (14-36); African American GFR (CKD) >90 (>60 ml/min/1.73 sqM); Albumin 3.2 g/dL (3.5-5.0); Alkaline Phosphatase 41 U/L (38-126); Anion Gap 4 mmol/L; Blood Urea Nitrogen 9 mg/dL (7-17); Calcium 9.1 mg/dL (8.4-10.2); Carbon Dioxide 21 mmol/L (22-30); Chloride 113 mmol/L (98-107); Glucose 161 mg/dL (74-99); Potassium 4.6 mmol/L (3.5-5.1); Sodium 138 mmol/L (137-145); Total Bilirubin 0.2 mg/dL (0.2-1.3); Total Protein 5.6 g/dL (6.3-8.2)
[2019-04-06 06:30] LABS: Glucose,Whole Blood 141 mg/dL (75-99)
[2019-04-06] MEDS: INSULIN ASPART (NovoLOG) 100 UNIT/ML VIAL SQ SCH ×2 (06:41→11:38)
[2019-04-06] MEDS ORDERED: PANTOPRAZOLE 40 MG TABLET PO SCH (07:30)
[2019-04-06] MEDS: SODIUM CHLORIDE 0.9% 1,000 ML IV SCH (08:08)
[2019-04-06] MEDS: CEFEPIME 2 GM in SODIUM CHLORIDE 0.9% 100 ML IVPB SCH (08:08)
[2019-04-06] MEDS: HEPARIN SODIUM,PORCINE 5,000 UNIT/ML 1 ML VIAL SQ SCH (08:09)
[2019-04-06] MEDS: methylPREDNISolone SOD SUCCI 40 MG/ML 1 ML VIAL IV SCH (08:10)
[2019-04-06] MEDS: CIPROFLOXACIN-DEXAMETH 0.3-0.1% DROPS 7.5 ML BTL BOTH EARS SCH (08:10)
[2019-04-06] MEDS: traMADol 50 MG TAB PO PRN (08:17)
[2019-04-06] MEDS ORDERED: NICOTINE 14MG/24HR PATCH TRANSDERM SCH (09:00)
[2019-04-06 09:04] VITALS: RESP 16
[2019-04-06] MEDS ORDERED: FLUCONAZOLE 100 MG TAB PO ONE (10:00)
[2019-04-06 11:38] LABS: Glucose,Whole Blood 126 mg/dL (75-99)
[2019-04-06 13:07] VITALS: BP 107/68; PULSE 54; TEMP 98.1
--- NOTE | 2019-04-06 13:28 | P.DS ---
Providers Date of admission: 04/04/19 19:05 Expected date of discharge: 04/06/19 Attending physician: Jessa Saucedo Consults: 04/04/19 19:05 Consult Physician Urgent Consulting Provider: Juan Cody Consult Reason/Comments: Cellulitis of the left ear Do you want consulting provider notified?: Yes 04/05/19 13:50 Consult Physician Routine Consulting Provider: Norma Meraz Consult Reason/Comments: Left ear cellulitis Do you want consulting provider notified?: Yes Primary care physician: Randa Flores [facility] Course: Discharge diagnosis 1. Left ear cellulitis. Dr. Wade has been consulted for ENT. Patient started on Levaquin and vancomycin. Patient also on Solu-Medrol. Patient has been cleared for discharge from infectious disease. Antibiotics per ID. Patient will be DC'd on prednisone taper 2. Partial thyroidectomy. Home thyroid medication resumed 3. Nicotine dependence. Patient educated greater than 3 minutes on smoking cessation. Nicotine patch will be ordered 4. History of anxiety 5. Yeast infection. Patient will be DC'd on Diflucan for 3 more days Hospital course This is a 38-year-old female patient with complaints of left ear pain and swelling. Patient reports that she believes she has psoriasis and she had a scab any here in which she picked and then a few days later it became increasingly swollen and painful. She reports that she was started on Keflex and was switched to Bactrim both without any improvement. Patient reports she had swelling to jaw. Patient denies any fevers. Patient states her hearing is impaired to left ear. Patient also states she is getting in 10 days. Patient has has medical history of hypothyroidism anxiety and smoker. Patient started on Levaquin and vancomycin. Solu-Medrol also started. Swelling has significantly improved. Patient reports less pain to left ear since hospitalized. At this time patient denies any chest pain or shortness of breath. Patient denies nausea vomiting or diarrhea. Patient denies any urinary burning or frequency. On 04/06/2019 patient's alert and oriented 3. Patient is that she is very eager to go home to her discharge ventilation. Patient has had significant improvement to left anterior swelling and pain. Wound cultures reviewed by infectious disease. Final antibiotics per ID. Patient will also be continued on Diflucan for yeast infection. Prednisone taper. At this time patient denies any chest pain or shortness of breath. Patient denies nausea vomiting or diarrhea. Patient denies any urinary burning or frequency. I performed an examination of the patient and discussed their management with the Nurse Practitioner. I have reviewed the Nurse Practitioner's notes and agree with the documented findings and plan of care Patient Condition at Discharge: Stable Plan - Discharge Summary Discharge Rx Participant: Yes New Discharge Prescriptions: New Fluconazole [Diflucan] 200 mg PO DAILY 3 Days #3 tab predniSONE 10 mg PO DIRECTED 9 Days #12 tab Ciprofloxacin HCl [Cipro] 500 mg PO Q12HR #20 tablet Cephalexin [Keflex] 500 mg PO Q8HR #30 cap Continue Levothyroxine Sodium [Tirosint] 137 mcg PO DAILY Cholecalciferol [Vitamin D3 (25 Mcg = 1000 Iu)] 5,000 unit PO DAILY Ibuprofen 600 mg PO TID PRN PRN Reason: Pain Discontinued Sulfamethox-Tmp 800-160Mg [Bactrim DS 800-160 mg] 1 tab PO BID Discharge Medication List Levothyroxine Sodium [Tirosint] 137 mcg PO DAILY 12/24/16 [History] Cholecalciferol [Vitamin D3 (25 Mcg = 1000 Iu)] 5,000 unit PO DAILY 02/08/19 [History] Ibuprofen 600 mg PO TID PRN 04/04/19 [History] Cephalexin [Keflex] 500 mg PO Q8HR #30 cap 04/06/19 [Rx] Ciprofloxacin HCl [Cipro] 500 mg PO Q12HR #20 tablet 04/06/19 [Rx] Fluconazole [Diflucan] 200 mg PO DAILY 3 Days #3 tab 04/06/19 [Rx] predniSONE 10 mg PO DIRECTED 9 Days #12 tab 04/06/19 [Rx] Follow up Appointment(s)/Referral(s): Randa Flores MD [Primary Care Provider] - 04/09/19 2:30 pm ([facility]) Norma Meraz MD [STAFF PHYSICIAN] - 04/17/19 3:00 pm Discharge Disposition: HOME SELF-CARE
--- NOTE | 2019-04-06 13:53 | PN ---
PROGRESS NOTE DATE OF SERVICE: 04/06/2019 REASON FOR FOLLOWUP: Left otitis externa/cellulitis. INTERVAL HISTORY: The patient is currently afebrile, pain to the left external ear has decreased down to about 2/10. Overall swelling, redness has improved. Denies having any chest pain. No shortness of breath. No cough, no abdominal pain, no diarrhea. PHYSICAL EXAMINATION: Blood pressure 107/68 with a pulse of 54, temperature 98.1, she is 96% on room air. General description is middle-aged female up in the room in no distress. HEENT: Examination left ear overall swelling, redness has improved. LUNGS: Unlabored breathing, clear to auscultation anteriorly. HEART: S1, S2. Regular rate and rhythm. EXTREMITIES: No edema of the feet. LABS: Hemoglobin 11.7, white count of 10.5, BUN of 9, creatinine 0.62. The wound culture did show MSSA and Pseudomonas. DIAGNOSTIC IMPRESSION AND PLAN: Patient with left otitis externa and cellulitis, culture did show pseudomonas, possibly MSSA. The patient is insisting on going home. It has been noted Staph aureus. If sensitive, patient to go home on oral Keflex and Cipro for 10 days and close outpatient followup. Continue supportive care. MMODL / IJN: [id number] /
== END 2019-04-06 14:51 | disposition home or self-care (01) ==
LOC: EC 15:13 → 6PED 19:05
PROVIDERS: ADMIT Internal Medicine; ATTEND Internal Medicine
DX: H60.12 Cellulitis of left external ear (principal); H61.032 Chondritis of left external ear; F41.9 Anxiety disorder, unspecified; B37.9 Candidiasis, unspecified; E89.0 Postprocedural hypothyroidism; F17.210 Nicotine dependence, cigarettes, uncomplicated; L40.9 Psoriasis, unspecified; E66.9 Obesity, unspecified; Z68.26 Body mass index [BMI] 26.0-26.9, adult; B95.61 Methicillin susceptible Staphylococcus aureus infection as the cause of diseases classified elsewhere; B96.5 Pseudomonas (aeruginosa) (mallei) (pseudomallei) as the cause of diseases classified elsewhere; Z91.018 Allergy to other foods; Z79.1 Long term (current) use of non-steroidal anti-inflammatories (NSAID); Z79.890 Hormone replacement therapy; Z83.2 Family history of diseases of the blood and blood-forming organs and certain disorders involving the immune mechanism
CPT/HCPCS: 96361 ×2; 96366 ×3; 96367 ×2; 96375 ×2; 96376 ×2; 96365; 99284; 36415; 80053 ×2; 80048; 85025 ×3; 80202; 84703; 87070; 87205; 87077; 87186; G0378 ×3; J3370 ×3; J2920 ×3; J0692 ×2; J1885; J1956

== ENCOUNTER → 2021-02-11 | Outpatient (CLI) | payer BC ==
--- NOTE | 2021-02-12 11:19 | MM ---
Reason for exam: screening (asymptomatic). Last mammogram was performed 5 years and 7 months ago. History: Family history of breast cancer in maternal grandmother at age 74. Took hormonal contraceptives for 1 month. Physical Findings: A clinical breast exam by your physician is recommended on an annual basis and results should be correlated with mammographic findings. MG 3D Screening Mammo W/Cad Bilateral CC and MLO view(s) were taken. Prior study comparison: July 18, 2015, bilateral MG diagnostic mammo w CAD MARIS. July 27, 2010, bilateral diagnostic digital mammog. The breast tissue is heterogeneously dense. This may lower the sensitivity of mammography. There is no discrete abnormality. ASSESSMENT: Negative, BI-RAD 1 RECOMMENDATION: Routine screening mammogram of both breasts in 1 year.
== END | disposition home or self-care (01) ==
LOC: RADMAMWWP 09:52
PROVIDERS: ATTEND Obstetrics & Gynecology
DX: Z12.31 Encounter for screening mammogram for malignant neoplasm of breast (principal); Z80.3 Family history of malignant neoplasm of breast
CPT/HCPCS: 77063; 77067

== ENCOUNTER 2021-06-12 09:31 | Day surgery (SDC) | payer BC ==
[2021-05-08 16:51] VITALS: BMI 29.8
[~2021-06-12 09:31] MED LIST changes: -DEXAMETHASONE SOD PHOSPHATE 10 MG/ML 1 ML VIAL IV ONE; -HYDROmorphone 1 MG/ML 1 ML SYRINGE IVP PRN; +LIDOCAINE 1% (10MG/ML) FOR IV START INTRADERMA PRN; -MIDAZOLAM 2 MG/2 ML VIAL IV PRN; -ONDANSETRON 4 MG/2 ML VIAL IVP ONE; -Pre Op ABX Message 1 EACH MISC MISCELLANE ONE
[2021-06-12 09:56] VITALS: TEMP 98.3
[2021-06-12] MEDS ORDERED: PROPOFOL 10 MG/ML 20 ML VIAL IV ONE (11:12)
--- NOTE | 2021-06-12 11:28 | P.PCN ---
Date of Procedure: 06/12/21 Procedure(s) Performed: BRIEF HISTORY: Patient is a 40-year-old pleasant white female scheduled for an elective colonoscopy as a part of evaluation of rectal bleeding for 4 days duration. She denies any significant change in bowel habits. The family history of colitis or colorectal neoplasia PROCEDURE PERFORMED: Colonoscopy. PREOPERATIVE DIAGNOSIS: Intermittent rectal bleeding. IV sedation per Anesthesia. PROCEDURE: After informed consent was obtained, the patient, was brought into the endoscopy unit. IV sedation was administered by Anesthesia under continuous monitoring. Digital rectal examination was normal. Initially the Olympus CF-160 flexible video colonoscope was then inserted in the rectum, gradually advanced into the cecum without any difficulty. Careful examination was performed as the scope was gradually being withdrawn. Ileocecal valve and the appendiceal orifice were visualized and appeared normal. Prep was excellent. Terminal ileum was intubated and 20 cm visualized and appeared normal Mucosa of the cecum, ascending colon, transverse colon, descending colon, sigmoid colon, and rectum appeared normal. Retroflexion was performed in the rectum and no lesions were seen. The patient tolerated the procedure well. IMPRESSION: Normal-appearing colon from rectum to cecum no evidence of colitis or colorectal . RECOMMENDATIONS: Findings of this examination were discussed with the patient as well as a family. She was advised to be a high-fiber diet and take fiber martinez pplements a regular basis. She can have a repeat screening colonoscopy in 10 years.
[2021-06-12 11:34] VITALS: RESP 16
[2021-06-12 11:45] VITALS: BP 110/76; PULSE 65
== END 2021-06-12 12:20 | disposition home or self-care (01) ==
LOC: ORWHC2ENDO 09:31
PROVIDERS: ATTEND Internal Medicine Gastroenterology
DX: K62.5 Hemorrhage of anus and rectum (principal); F17.200 Nicotine dependence, unspecified, uncomplicated; E07.9 Disorder of thyroid, unspecified; K21.9 Gastro-esophageal reflux disease without esophagitis; Z79.890 Hormone replacement therapy
CPT/HCPCS: 45378; 81025; J2704

== ENCOUNTER 2021-09-01 15:18 | Emergency (ER) | payer BC ==
[2021-09-01 16:51] VITALS: TEMP 98.2
[2021-09-01] MEDS ORDERED: KETOROLAC 15 MG/ML 1 ML VIAL IM STA (16:55)
--- NOTE | 2021-09-01 18:15 | US ---
EXAMINATION TYPE: US venous doppler duplex LE RT DATE OF EXAM: 09/01/2021 5:21 PM COMPARISON: NONE CLINICAL HISTORY: pain. Pain. No hx of DVT. Patient does not take blood thinners. SIDE PERFORMED: Right TECHNIQUE: The lower extremity deep venous system is examined utilizing real time linear array sonog chilo with graded compression, doppler sonography and color-flow sonography. VESSELS IMAGED: Common Femoral Vein Deep Femoral Vein Greater Saphenous Vein * Femoral Vein Popliteal Vein Small Saphenous Vein * Proximal Calf Veins (* superficial vessels) Right Leg: Internal echoes seen within the popliteal and prox calf veins. These vein segments appear to compress incompletely and show internal echoes. IMPRESSION: 1. Right lower extremity deep venous thrombosis within the popliteal and proximal trifurcation vessel s.
--- NOTE | 2021-09-01 18:36 | ED ---
Extremity Problem HPI - General Chief complaint: Extremity Problem,Nontraumatic Stated complaint: R/O blood clot Time Seen by Provider: 09/01/21 16:53 Source: patient, RN notes reviewed Mode of arrival: ambulatory Limitations: no limitations - History of Present Illness Initial comments: Patient is a 41-year-old female that presents to emergency department complaining of right lower extremities swelling and pain in her calf. She was sent by Dr. Baig for ultrasound for possible DVT. Patient recently ruptured her plantar fascia and is in a walking boot. This is all on the right side. Patient denied any other issues or complaints. She was otherwise well- appearing. She denied any chest pain first breath headache nausea vomiting diarrhea constipation fever fatigue chills. - Related Data Home Medications Medication Instructions Recorded Confirmed Levothyroxine Sodium [Tirosint] 137 mcg PO DAILY 12/24/16 09/01/21 clonazePAM [KlonoPIN] 0.25 mg PO DAILY PRN 05/08/21 09/01/21 Esomeprazole Magnesium [NexIUM 20 mg PO DAILY PRN 09/01/21 09/01/21 24Hr] Famotidine [Pepcid AC] 10 mg PO DAILY PRN 09/01/21 09/01/21 Norethindrone-E.estradiol-Iron 1 tab PO DAILY 09/01/21 09/01/21 [Junel Fe 1 mg-20 Mcg Tablet] traMADol HCL 50 mg PO Q6H PRN 09/01/21 09/01/21 Previous Rx's Medication Instructions Recorded Apixaban [Eliquis] 0 mg PO DIRECTED #74 tablet 09/01/21 Allergies Allergy/AdvReac Type Severity Reaction Status Date / Time garlic AdvReac Diarrhea & Verified 09/01/21 17:59 Heart Burn Review of Systems ROS Statement: Those systems with pertinent positive or pertinent negative responses have been documented in the HPI. ROS Other: All systems not noted in ROS Statement are negative. Past Medical History Past Medical History: GERD/Reflux, GI Bleed, Thyroid Disorder Additional Past Medical History / Comment(s): Recent Cholangitis. Groin cyst lanced 06/04/21, finishing Levaquin 06/10/21 and Bactrim 06/12/21. Hx bulging disc, Shingles. Positive occult blood in stool. Hypothyroid, hyperparathyroid. History of Any Multi-Drug Resistant Organisms: None Reported Past Surgical History: Adenoidectomy, Ear Surgery Additional Past Surgical History / Comment(s): SUB-THYROIDECTOMY. BMT. Ossular left ear reconstruction w/ prosthesis. [place] teeth. Breast biopsy - benign. Cyst in groin area lanced. Past Anesthesia/Blood Transfusion Reactions: Postoperative Nausea & Vomiting (PONV) Past Psychological History: Anxiety Smoking Status: Current every day smoker Past Alcohol Use History: Occasional Past Drug Use History: None Reported - Past Family History Father Family Medical History: Deep Vein Thrombosis (DVT), Pulmonary Embolus Sister(s) Family Medical History: Pulmonary Embolus General Exam Limitations: no limitations General appearance: alert, in no apparent distress Head exam: Present: atraumatic, normocephalic, normal inspection Eye exam: Present: normal appearance, PERRL, EOMI. Absent: scleral icterus, conjunctival injection, periorbital swelling ENT exam: Present: normal exam, mucous membranes moist Neck exam: Present: normal inspection Respiratory exam: Present: normal lung sounds bilaterally. Absent: respiratory distress, wheezes, rales, rhonchi, stridor Cardiovascular Exam: Present: regular rate, normal rhythm, normal heart sounds. Absent: systolic murmur, diastolic murmur, rubs, gallop, clicks Right Lower Leg exam: Present: normal inspection, full ROM, tenderness (The calf), swelling, Homans' sign. Absent: abrasion, laceration, ecchymosis, deformity, crepitus, dislocation Neurological exam: Present: alert, oriented X3 Psychiatric exam: Present: normal affect, normal mood Skin exam: Present: warm, dry, intact, normal color. Absent: rash Course Vital Signs 09/01/21 16:44 Temperature 98.2 F Pulse Rate 74 Respiratory 18 Rate Blood Pressure 150/92 O2 Sat by Pulse 97 Oximetry Medical Decision Making - Medical Decision Making 41-year-old female with right lower leg swelling in a walking boot for plantar fascial rupture. Ultrasound right lower extremity, 15 mg of Toradol ordered. Ultrasound shows a DVT in the popliteal vein. Patient will be started on anticoagulation. Case discussed with Dr. Roth, patient can discharge home. - Radiology Data Radiology results: report reviewed, image reviewed Ultrasound right lower extremity: Right lower extremity deep venous thrombosis within the popliteal and proximal trifurcation vessels. Disposition Clinical Impression: Deep vein thrombosis (DVT) of lower extremity Disposition: HOME SELF-CARE Condition: Stable Instructions (If sedation given, give patient instructions): Deep Vein Thrombos is (ED) Additional Instructions: Please return to the Emergency Department if symptoms worsen or any other concerns. Follow-up with primary care 1-2 days. Take anticoagulation as prescribed. Prescriptions: Apixaban [Eliquis] 0 mg PO DIRECTED #74 tablet Is patient prescribed a controlled substance at d/c from ED?: No Referrals: Randa Flores MD [Primary Care Provider] - 1-2 days Time of Disposition: 18:36
[2021-09-01 18:56] VITALS: BP 156/89; PULSE 76; RESP 20
== END 2021-09-01 18:56 | disposition home or self-care (01) ==
LOC: EC 15:18
DX: I82.431 Acute embolism and thrombosis of right popliteal vein (principal); K21.9 Gastro-esophageal reflux disease without esophagitis; E07.9 Disorder of thyroid, unspecified; F41.9 Anxiety disorder, unspecified; F17.200 Nicotine dependence, unspecified, uncomplicated; Z90.89 Acquired absence of other organs; Z79.01 Long term (current) use of anticoagulants
CPT/HCPCS: 99283; 96372; 93971; J1885

== ENCOUNTER → 2021-09-14 | Outpatient (CLI) | payer BC ==
--- NOTE | 2021-09-14 12:51 | US ---
EXAMINATION TYPE: US gallbladder DATE OF EXAM: 09/14/2021 COMPARISON: NONE CLINICAL HISTORY: 41-year-old female K81.9 Cholecystitis. TECHNIQUE: Multiple sonographic images of the right upper quadrant are obtained. FINDINGS: EXAM MEASUREMENTS: Liver Length: 13.3 cm Gallbladder Wall: 0.1 cm CBD: 0.5 cm Right Kidney: 11.2 x 4.2 x 5.8 cm Pancreas: wnl Liver: wnl Gallbladder: Single small focus of comet tail artifact which is seen with benign adenomyomatosis. No gallstones, hydropic change, wall thickening, or pericholecystic fluid. Evidence for sonographic Salas's sign: no CBD: wnl Right Kidney: No hydronephrosis. IMPRESSION: No gallstones or biliary ductal dilatation. No specific abnormality seen.
== END | disposition home or self-care (01) ==
LOC: RADUSWWP 07:29
PROVIDERS: ATTEND Family Medicine
DX: K81.9 Cholecystitis, unspecified (principal)
CPT/HCPCS: 76705

== ENCOUNTER → 2021-10-01 | Outpatient (CLI) | payer BC ==
--- NOTE | 2021-10-01 09:39 | NM ---
EXAMINATION TYPE: NM hepatobiliary w EF DATE OF EXAM: 10/01/2021 COMPARISON: NONE HISTORY: K81.1 Chronic cholecystitis TECHNIQUE: After the intravenous administration of 5 mCi Tc 99m Mebrofenin hepatobiliary scintigraphy is performed. Immediate images post injection. FINDINGS: There is satisfactory initial accumulation of tracer by the liver. The gallbladder is visualized wit hin 28 minutes. The small bowel activity is noted within 32 minutes. At one hour 8 ounces of oral e nsure plus is given to mimic CCK and gallbladder ejection fraction is calculated at 81 %, in the norm al range. Therefore there is no scintigraphic evidence of cystic or common bile duct obstruction to suggest acute cholecystitis or gallbladder dyskinesia. IMPRESSION: Exam is within normal limits.
== END | disposition home or self-care (01) ==
LOC: RADNMMAIN 06:53
PROVIDERS: ATTEND Surgery Plastic and Reconstructive Surgery
DX: K81.1 Chronic cholecystitis (principal)
CPT/HCPCS: 78226; A9537

== ENCOUNTER 2021-10-28 07:59 | Day surgery (SDC) | payer BC ==
[2021-10-22 14:18] VITALS: BMI 29.5
[2021-10-28 08:30] VITALS: TEMP 97.6
[2021-10-28] MEDS ORDERED: PROPOFOL 10 MG/ML 20 ML VIAL IV ONE (09:05)
[2021-10-28] MEDS ORDERED: LIDOCAINE 1% INJ 10MG/ML (20 ML MDV) ONE (09:05)
--- NOTE | 2021-10-28 09:09 | P.GSHP ---
History of Present Illness H&P Date: 10/28/21 CHIEF COMPLAINT: Gastric ulcer HISTORY OF PRESENT ILLNESS: The patient is a 41-year-old female who presents reports gastroesophageal reflux disease and gastric ulcer. She reports new dark stools in the last 3 weeks. Upper endoscopy was offered for further evaluation and management. PAST MEDICAL HISTORY: Please see list. PAST SURGICAL HISTORY: Please see list. MEDICATIONS: Please see list. ALLERGIES: Please see list. SOCIAL HISTORY: No illicit drug use FAMILY HISTORY: No reports of Crohn disease or ulcerative colitis. REVIEW OF ORGAN SYSTEMS: CONSTITUTIONAL: No reports of fevers or chills. GI: Has blood in stools or constipation. PHYSICAL EXAM: VITAL SIGNS: Stable GENERAL: Well-developed and pleasant in no acute distress. HEENT: No scleral icterus. Extraocular movements grossly intact. Moist buccal mucosa. NECK: Supple without lymphadenopathy. CHEST: Unlabored respirations. Equal bilateral excursions. CARDIOVASCULAR: Regular rate and rhythm. Distal 2+ pulses. ABDOMEN: Soft, nondistended. MUSCULOSKELETAL: No clubbing, cyanosis, or edema. ASSESSMENT: 1. Gastric ulcer. 2. Gastrointestinal bleeding 3. Gastroesophageal reflux disease PLAN: 1. Recommend proceeding with an upper endoscopy Past Medical History Past Medical History: Deep Vein Thrombosis (DVT), GERD/Reflux, GI Bleed, Thyroid Disorder Additional Past Medical History / Comment(s): Possible Cholangitis. Groin cyst lanced 06/04/21, finishing Levaquin 06/10/21 and Bactrim 06/12/21. Hx bulging disc, hx Storey, hx Shingles. Positive occult blood in stool. Hypothyroid, hyperparathyroid. DVT in right knee 09/01/21, ruptured plantar fasciitis tendon in right foot prior to that. Current GI bleed. History of Any Multi-Drug Resistant Organisms: None Reported Past Surgical History: Adenoidectomy, Ear Surgery Additional Past Surgical History / Comment(s): SUB-THYROIDECTOMY. BMT. Ossular left ear reconstruction w/ prosthesis. [place] teeth. Breast biopsy - benign. Cyst in groin area lanced. Colonoscopy. Past Anesthesia/Blood Transfusion Reactions: Postoperative Nausea & Vomiting (PONV) Past Psychological History: Anxiety Smoking Status: Current every day smoker Past Alcohol Use History: Occasional Additional Past Alcohol Use History / Comment(s): STARTED SMOKING AT AGE 18, SMOKES 1 PPD OR LESS. Past Drug Use History: None Reported - Past Family History Father Family Medical History: Deep Vein Thrombosis (DVT), Pulmonary Embolus Sister(s) Family Medical History: Pulmonary Embolus Medications and Allergies Home Medications Medication Instructions Recorded Confirmed Type Levothyroxine Sodium [Tirosint] 137 mcg PO QAM 12/24/16 10/28/21 History clonazePAM [KlonoPIN] 0.25 mg PO DAILY PRN 05/08/21 10/28/21 History Esomeprazole Magnesium [NexIUM 20 mg PO DAILY PRN 09/01/21 10/28/21 History 24Hr] Famotidine [Pepcid AC] 40 mg PO BID 09/01/21 10/28/21 History traMADol HCL 50 mg PO Q6H PRN 09/01/21 10/28/21 History Apixaban [Eliquis] 5 mg PO BID 10/22/21 10/28/21 History Norethindrone-E.estradiol-Iron 1 tab PO DAILY 10/22/21 10/28/21 History [Ryan 24 Fe 1 mg-20 Mcg Tablet] Allergies Allergy/AdvReac Type Severity Reaction Status Date / Time garlic AdvReac Diarrhea & Verified 10/22/21 14:04 Heart Burn Surgical - Exam Vital Signs Temp Pulse Resp BP Pulse Ox 97.6 F 100 16 120/71 97 10/28/21 08:24 10/28/21 08:24 10/28/21 08:24 10/28/21 08:24 10/28/21 08:24
--- NOTE | 2021-10-28 09:41 | P.PCN ---
Date of Procedure: 10/28/21 Description of Procedure: PREOPERATIVE DIAGNOSIS: Gastrointestinal bleeding History of gastric ulcer Melanotic stools Chronic anticoagulation POSTOPERATIVE DIAGNOSIS: Diaphragmatic hiatal hernia Gastritis Chronic anticoagulation OPERATION: Esophagogastroduodenoscopy SURGEON: Helena Novak MD ANESTHESIA: MAC. INDICATIONS: The patient is a 41-year-old female who presents with history of gastric ulcer and gastrointestinal bleeding. Benefits and risks of the procedure were described. Informed consent was obtained. DESCRIPTION: The patient was brought into the endoscopy suite and laid in the left lateral decubitus position. An Olympus gastroscope was passed along the posterior oropharynx down to the distal esophagus where the squamocolumnar junction was encountered at 37 cm from the incisors. The stomach was entered and no bile reflux was found. Additional findings are listed below. The first through third portion of the duodenum was examined and unremarkable. Retroflexion of the scope confirmed Hill grade 3 lower esophageal valve. The squamocolumnar junction demonstrated LA grade B erosive esophagitis. The stomach was desufflated. The patient tolerated the procedure well. FINDINGS: Squamocolumnar junction 37 cm from the incisors. Diaphragmatic hiatus at 37 cm. Hill grade 3 lower esophageal valve. LA grade B erosive esophagitis. No active duodenitis. Chronic gastritis without bleeding RECOMMENDATIONS: Upper endoscopy as needed. Plan - Discharge Summary Discharge Rx Participant: Yes New Discharge Prescriptions: Continue Levothyroxine Sodium [Tirosint] 137 mcg PO QAM clonazePAM [KlonoPIN] 0.25 mg PO DAILY PRN PRN Reason: Anxiety traMADol HCL 50 mg PO Q6H PRN PRN Reason: Pain Apixaban [Eliquis] 5 mg PO BID Norethindrone-E.estradiol-Iron [Ryan 24 Fe 1 mg-20 Mcg Tablet] 1 tab PO DAILY Esomeprazole Magnesium [NexIUM 24Hr] 20 mg PO DAILY PRN PRN Reason: Heartburn Famotidine [Pepcid AC] 40 mg PO BID Discharge Medication List Levothyroxine Sodium [Tirosint] 137 mcg PO QAM 12/24/16 [History] clonazePAM [KlonoPIN] 0.25 mg PO DAILY PRN 05/08/21 [History] Esomeprazole Magnesium [NexIUM 24Hr] 20 mg PO DAILY PRN 09/01/21 [History] Famotidine [Pepcid AC] 40 mg PO BID 09/01/21 [History] traMADol HCL 50 mg PO Q6H PRN 09/01/21 [History] Apixaban [Eliquis] 5 mg PO BID 10/22/21 [History] Norethindrone-E.estradiol-Iron [Ryan 24 Fe 1 mg-20 Mcg Tablet] 1 tab PO DAILY 10/22/21 [History] Follow up Appointment(s)/Referral(s): Helena Novak MD [STAFF PHYSICIAN] - 11/05/21 Patient Instructions/Handouts: *[facility] - (Anesthesia) Endoscopy Discharge Instructions, Upper Endoscopy (DC) Discharge Disposition: HOME SELF-CARE
[2021-10-28 09:55] VITALS: BP 103/65; PULSE 61; RESP 18
== END 2021-10-28 10:17 | disposition home or self-care (01) ==
LOC: ORWHC2ENDO 07:59
PROVIDERS: ATTEND Surgery Plastic and Reconstructive Surgery
DX: K25.3 Acute gastric ulcer without hemorrhage or perforation (principal); K29.50 Unspecified chronic gastritis without bleeding; K22.10 Ulcer of esophagus without bleeding; K21.9 Gastro-esophageal reflux disease without esophagitis; F41.9 Anxiety disorder, unspecified; F17.210 Nicotine dependence, cigarettes, uncomplicated; E21.3 Hyperparathyroidism, unspecified; Z86.718 Personal history of other venous thrombosis and embolism; E89.0 Postprocedural hypothyroidism; Z98.890 Other specified postprocedural states; Z82.49 Family history of ischemic heart disease and other diseases of the circulatory system; Z86.19 Personal history of other infectious and parasitic diseases; Z79.01 Long term (current) use of anticoagulants; Z79.3 Long term (current) use of hormonal contraceptives; Z79.890 Hormone replacement therapy; Z79.899 Other long term (current) drug therapy; Z91.018 Allergy to other foods
CPT/HCPCS: 81025; 43235; J2001; J2704

== ENCOUNTER → 2021-11-13 | Outpatient (CLI) | payer BC ==
--- NOTE | 2021-11-13 14:36 | FL ---
EXAMINATION TYPE: FL barium swallow DATE OF EXAM: 11/13/2021 COMPARISON: None HISTORY: GERD TECHNIQUE: Double air contrast technique is utilized to evaluate the esophagus. FINDINGS: Real-time observation, fluoroscopy, and overhead radiographs were obtained through the esophagus. Fluoroscopy time: 34 seconds. Images: 67. The esophagus dilates to normal caliber and is normal contour to the gastroesophageal junction. Gastr oesophageal junction opens to normal caliber. No intraluminal or extrarenal defect is evident. Mild g astroesophageal reflux was observed during the examination into the distal esophagus IMPRESSION: 1. Mild gastroesophageal reflux.
== END | disposition home or self-care (01) ==
LOC: RADUSWWP 08:49
PROVIDERS: ATTEND Surgery Plastic and Reconstructive Surgery
DX: K21.9 Gastro-esophageal reflux disease without esophagitis (principal)
CPT/HCPCS: 74220

== ENCOUNTER → 2021-12-23 | Outpatient (CLI) | payer BC ==
--- NOTE | 2021-12-24 10:06 | US ---
EXAMINATION TYPE: US venous doppler duplex LE RT DATE OF EXAM: 12/23/2021 4:33 PM COMPARISON: 09/01/2021 CLINICAL HISTORY: 41-year-old female M79.661 PAIN IN RT LOWER LEG. History of DVT in right leg , stopped thinners 12/2021, leg pain SIDE PERFORMED: Right TECHNIQUE: The lower extremity deep venous system is examined utilizing real time linear array sonog chilo with graded compression, doppler sonography and color-flow sonography. FINDINGS: VESSELS IMAGED: Common Femoral Vein Deep Femoral Vein Greater Saphenous Vein * Femoral Vein Popliteal Vein Small Saphenous Vein * (* superficial vessels) Right Leg: Negative for DVT IMPRESSION: No evidence for DVT within the right lower extremity imaged from the groin to the knee.
== END | disposition home or self-care (01) ==
LOC: RADUSWWP 15:25
PROVIDERS: ATTEND Family Medicine
DX: M79.661 Pain in right lower leg (principal); Z86.718 Personal history of other venous thrombosis and embolism

== ENCOUNTER → 2022-01-22 | Outpatient (CLI) | payer BC ==
--- NOTE | 2022-01-22 10:16 | CT ---
EXAMINATION TYPE: CT abdomen pelvis w con DATE OF EXAM: 01/22/2022 HISTORY: Abdominal pain, nausea and blood in stool. CT DLP: 1238mGycm Automated Exposure Control for Dose Reduction was Utilized. CONTRAST: CT scan of the abdomen and pelvis is performed with IV Contrast, patient injected with 100 mL of Isov ue M300. COMPARISON: Prior CT August 25, 2017 FINDINGS: LUNG BASES: No significant abnormality is appreciated. LIVER/GB: No significant abnormality is appreciated. PANCREAS: No significant abnormality is seen. SPLEEN: No significant abnormality is seen. ADRENALS: No significant abnormality is seen. KIDNEYS: No significant abnormality is seen. BOWEL: The oral contrast does not reach the level of the terminal ileum making evaluation of distal b owel slightly suboptimal. No suspicious small or large bowel dilatation is identified. Terminal ileum shows mild prominence without suspicious wall thickening coronal image 36. Fecal material is seen in nondistended colon. Mild to moderate wall thickening proximal transverse colon near hepatic flexure. No significant fat stranding. Mild wall thickening in the mid to distal sigmoid colon extending into rectum. Normal-appearing appendix from cecum. UTERUS/ADNEXA: Anteverted bulky uterus. There is 1.7 cm left hypoechoic lesion likely reflecting intr amural fibroid axial image 60. LYMPH NODES: No greater than 1cm abdominal or pelvic lymph nodes are appreciated. OSSEOUS STRUCTURES: Mild to moderate disc space narrowing right L4-L5 level with vacuum disc phenomen on. OTHER: No significant additional abnormality is seen. IMPRESSION: Slightly suboptimal study. Areas of mild wall thickening proximal transverse colon and di stal sigmoid colon could reflect product of mild uncomplicated colitis. Terminal ileum appears within normal limits.
== END | disposition home or self-care (01) ==
LOC: RADCTMAIN 07:33
PROVIDERS: ATTEND Family Medicine
DX: K63.89 Other specified diseases of intestine (principal)
CPT/HCPCS: 74177; Q9967

== ENCOUNTER 2022-02-02 12:11 | Observation (INO) | payer BC ==
[2022-02-02] MEDS ORDERED: ONDANSETRON 4 MG/2 ML VIAL IVP STA (13:00)
[2022-02-02] MEDS ORDERED: MORPHINE SULFATE 4 MG/ML SYRINGE IVP STA (13:00)
--- NOTE | 2022-02-02 13:04 | ED ---
General Adult HPI - General Chief complaint: Extremity Problem,Nontraumatic Stated complaint: lt leg swelling Time Seen by Provider: 02/02/22 12:43 Source: patient, RN notes reviewed, old records reviewed Mode of arrival: ambulatory Limitations: no limitations - History of Present Illness Initial comments: 41-year-old female presenting with left leg swelling and pain. Her swelling of the present for the past several weeks. She is currently dealing with an ankle injury and gastrocnemius injury with orthopedics. She developed painful swelling into her upper thigh over the past 24 hours. She has no chest pain or dyspnea. No fever. She does have some numbness into the toes. No abdominal pain, no vomiting. Previous history of DVT in the right lower extremity. - Related Data Home Medications Medication Instructions Recorded Confirmed Levothyroxine Sodium [Tirosint] 137 mcg PO QAM 12/24/16 10/28/21 clonazePAM [KlonoPIN] 0.25 mg PO DAILY PRN 05/08/21 10/28/21 Esomeprazole Magnesium [NexIUM 20 mg PO DAILY PRN 09/01/21 10/28/21 24Hr] Famotidine [Pepcid AC] 40 mg PO BID 09/01/21 10/28/21 traMADol HCL 50 mg PO Q6H PRN 09/01/21 10/28/21 Apixaban [Eliquis] 5 mg PO BID 10/22/21 10/28/21 Norethindrone-E.estradiol-Iron 1 tab PO DAILY 10/22/21 10/28/21 [Ryan 24 Fe 1 mg-20 Mcg Tablet] Allergies Allergy/AdvReac Type Severity Reaction Status Date / Time garlic AdvReac Diarrhea & Verified 02/02/22 12:32 Heart Burn Review of Systems ROS Statement: Those systems with pertinent positive or pertinent negative responses have been documented in the HPI. ROS Other: All systems not noted in ROS Statement are negative. Past Medical History Past Medical History: GERD/Reflux, GI Bleed, Thyroid Disorder Additional Past Medical History / Comment(s): Recent Cholangitis. Groin cyst lanced 06/04/21, finishing Levaquin 06/10/21 and Bactrim 06/12/21. Hx bulging disc, Shingles. Positive occult blood in stool. Hypothyroid, hyperparathyroid. History of Any Multi-Drug Resistant Organisms: None Reported Past Surgical History: Adenoidectomy, Ear Surgery Additional Past Surgical History / Comment(s): SUB-THYROIDECTOMY. BMT. Ossular left ear reconstruction w/ prosthesis. [place] teeth. Breast biopsy - benign. Cyst in groin area lanced. Past Anesthesia/Blood Transfusion Reactions: Postoperative Nausea & Vomiting (PONV) Past Psychological History: Anxiety Smoking Status: Current every day smoker Past Alcohol Use History: Occasional Past Drug Use History: None Reported - Past Family History Father Family Medical History: Deep Vein Thrombosis (DVT), Pulmonary Embolus Sister(s) Family Medical History: Pulmonary Embolus General Exam Limitations: no limitations General appearance: alert, in no apparent distress Head exam: Present: atraumatic, normocephalic Eye exam: Present: normal appearance, PERRL ENT exam: Present: normal exam Neck exam: Present: normal inspection. Absent: tenderness, meningismus Respiratory exam: Present: normal lung sounds bilaterally. Absent: respiratory distress, wheezes Cardiovascular Exam: Present: regular rate, normal rhythm GI/Abdominal exam: Present: soft. Absent: distended, tenderness, guarding Extremities exam: Present: tenderness, pedal edema, other (Extensive swelling and delayed cap refill in the left leg in the left thigh. The extremity is warm. There is calf tenderness.). Absent: normal capillary refill Neurological exam: Present: alert, oriented X3, CN II-XII intact. Absent: motor sensory deficit Psychiatric exam: Present: normal affect, normal mood Skin exam: Present: warm, dry Course Vital Signs 02/02/22 02/02/22 12:29 14:00 Temperature 97.4 F L Pulse Rate 95 90 Respiratory 20 18 Rate Blood Pressure 154/112 129/82 O2 Sat by Pulse 97 96 Oximetry Medical Decision Making - Medical Decision Making 41 41-year-old female with pain and swelling of the left leg. There is suspicion for DVT. Ultrasound is performed and shows extensive DVT into the external iliac on ultrasound. There is significant swelling and pain. Patient has normal CBC, normal CMP, normal coagulation panel. She started on heparin in the emergency department. She is admitted to internal medicine with vascular on consult. I discussed case both with the admitting physician and the vascular surgeon. - Lab Data Result diagrams: 02/02/22 12:53 02/02/22 12:53 Lab Results 02/02/22 02/02/22 02/02/22 Range/Units 12:53 12:53 12:53 WBC 9.3 (3.8-10.6) k/uL RBC 4.36 (3.80-5.40) m/uL Hgb 14.6 (11.4-16.0) gm/dL Hct 42.3 (34.0-46.0) % MCV 96.9 (80.0-100.0) fL MCH 33.4 (25.0-35.0) pg MCHC 34.5 (31.0-37.0) g/dL RDW 13.0 (11.5-15.5) % Plt Count 213 (150-450) k/uL MPV 10.5 Neutrophils % 73 % Lymphocytes % 19 % Monocytes % 3 % Eosinophils % 2 % Basophils % 0 % Neutrophils # 6.8 (1.3-7.7) k/uL Lymphocytes # 1.8 (1.0-4.8) k/uL Monocytes # 0.3 (0-1.0) k/uL Eosinophils # 0.2 (0-0.7) k/uL Basophils # 0.0 (0-0.2) k/uL PT 9.7 (9.0-12.0) sec INR 0.9 (<1.2) APTT 23.1 (22.0-30.0) sec Sodium 137 (137-145) mmol/L Potassium 3.9 (3.5-5.1) mmol/L Chloride 105 (98-107) mmol/L Carbon Dioxide 22 (22-30) mmol/L Anion Gap 10 mmol/L BUN 7 (7-17) mg/dL Creatinine 0.64 (0.52-1.04) mg/dL Est GFR (CKD-EPI)AfAm >90 (>60 ml/min/1.73 sqM) Est GFR (CKD-EPI)NonAf >90 (>60 ml/min/1.73 sqM) Glucose 108 H (74-99) mg/dL Plasma Lactic Acid Fili (0.7-2.0) mmol/L Calcium 8.9 (8.4-10.2) mg/dL Magnesium 1.7 (1.6-2.3) mg/dL Total Bilirubin 0.5 (0.2-1.3) mg/dL AST 22 (14-36) U/L ALT 18 (4-34) U/L Alkaline Phosphatase 67 (38-126) U/L Total Protein 6.9 (6.3-8.2) g/dL Albumin 3.7 (3.5-5.0) g/dL 02/02/22 Range/Units 12:53 WBC (3.8-10.6) k/uL RBC (3.80-5.40) m/uL Hgb (11.4-16.0) gm/dL Hct (34.0-46.0) % MCV (80.0-100.0) fL MCH (25.0-35.0) pg MCHC (31.0-37.0) g/dL RDW (11.5-15.5) % Plt Count (150-450) k/uL MPV Neutrophils % % Lymphocytes % % Monocytes % % Eosinophils % % Basophils % % Neutrophils # (1.3-7.7) k/uL Lymphocytes # (1.0-4.8) k/uL Monocytes # (0-1.0) k/uL Eosinophils # (0-0.7) k/uL Basophils # (0-0.2) k/uL PT (9.0-12.0) sec INR (<1.2) APTT (22.0-30.0) sec Sodium (137-145) mmol/L Potassium (3.5-5.1) mmol/L Chloride (98-107) mmol/L Carbon Dioxide (22-30) mmol/L Anion Gap mmol/L BUN (7-17) mg/dL Creatinine (0.52-1.04) mg/dL Est GFR (CKD-EPI)AfAm (>60 ml/min/1.73 sqM) Est GFR (CKD-EPI)NonAf (>60 ml/min/1.73 sqM) Glucose (74-99) mg/dL Plasma Lactic Acid Fili 1.1 (0.7-2.0) mmol/L Calcium (8.4-10.2) mg/dL Magnesium (1.6-2.3) mg/dL Total Bilirubin (0.2-1.3) mg/dL AST (14-36) U/L ALT (4-34) U/L Alkaline Phosphatase (38-126) U/L Total Protein (6.3-8.2) g/dL Albumin (3.5-5.0) g/dL Disposition Clinical Impression: Deep vein thrombosis (DVT) of lower extremity Disposition: ADMITTED IP TO THIS HOSP Condition: Stable Is patient prescribed a controlled substance at d/c from ED?: No Time of Disposition: 13:45
[2022-02-02 13:09] LABS: Basophils % (A) 0 %; Eosinophils # (A) 0.2 k/uL (0-0.7); Eosinophils % (A) 2 %; HCT 42.3 % (34.0-46.0); HGB 14.6 gm/dL (11.4-16.0); Lymphocytes # (A) 1.8 k/uL (1.0-4.8); Lymphocytes % (A) 19 %; MCH 33.4 pg (25.0-35.0); MCHC 34.5 g/dL (31.0-37.0); MCV 96.9 fL (80.0-100.0); Mean Platelet Volume 10.5; Monocytes # (A) 0.3 k/uL (0-1.0); Monocytes % (A) 3 %; Neutrophils # (A) 6.8 k/uL (1.3-7.7); Neutrophils % (A) 73 %; Platelet Count 213 k/uL (150-450); RBC 4.36 m/uL (3.80-5.40); WBC 9.3 k/uL (3.8-10.6)
[2022-02-02 13:20] LABS: INR 0.9 (<1.2); Partial Thromboplastin Time 23.1 sec (22.0-30.0); Prothrombin Time 9.7 sec (9.0-12.0)
[2022-02-02 13:26] LABS: ALT 18 U/L (4-34); AST 22 U/L (14-36); African American GFR (CKD) >90 (>60 ml/min/1.73 sqM); Albumin 3.7 g/dL (3.5-5.0); Alkaline Phosphatase 67 U/L (38-126); Anion Gap 10 mmol/L; Blood Urea Nitrogen 7 mg/dL (7-17); Calcium 8.9 mg/dL (8.4-10.2); Carbon Dioxide 22 mmol/L (22-30); Chloride 105 mmol/L (98-107); Glucose 108 mg/dL (74-99); Magnesium 1.7 mg/dL (1.6-2.3); Non-African American GFR(CKD) >90 (>60 ml/min/1.73 sqM); Potassium 3.9 mmol/L (3.5-5.1); Sodium 137 mmol/L (137-145); Total Bilirubin 0.5 mg/dL (0.2-1.3); Total Protein 6.9 g/dL (6.3-8.2)
--- NOTE | 2022-02-02 13:41 | US ---
EXAMINATION TYPE: US venous doppler duplex LE LT DATE OF EXAM: 02/02/2022 12:49 PM COMPARISON: NONE CLINICAL HISTORY: swelling. Left leg pain and swelling SIDE PERFORMED: Left TECHNIQUE: The lower extremity deep venous system is examined utilizing real time linear array sonog chilo with graded compression, doppler sonography and color-flow sonography. VESSELS IMAGED: Common Femoral Vein Deep Femoral Vein Greater Saphenous Vein * Femoral Vein Popliteal Vein Small Saphenous Vein * Proximal Calf Veins (* superficial vessels) Left Leg: Positive for DVT EIV through proximal calf veins IMPRESSION: 1. Exam is positive for diffuse DVT throughout the left lower extremity extending from the external i liac vein through the proximal calf veins
[2022-02-02] MEDS ORDERED: HEPARIN SODIUM 1,000 UN/ML (10ML VL) IV PRN (13:43)
[2022-02-02] MEDS ORDERED: NALOXONE 0.4 MG/ML 1 ML VIAL IV PRN (13:43)
[2022-02-02] MEDS ORDERED: HEPARIN SODIUM 1,000 UN/ML (10ML VL) IV ONE (13:43)
[2022-02-02] MEDS: HEPARIN SOD,PORK IN 0.45% NACL 25,000 UNIT in 0.45% NACL 1 250ML.BAG IV SCH (14:09)
--- NOTE | 2022-02-02 15:09 | P.GSCN ---
History of Present Illness Consult date: 02/02/22 Reason for Consult: Left lower extremity DVT Requesting physician: Sudhakar Crespo History of present illness: This is a 41-year-old female who presented to the emergency department with complaints of left lower extremity pain and swelling. Patient had noticed that she was having swelling in her thigh and discomfort it progressively got worse throughout the day. She came into the emergency department for further evaluation. She does have a history of previous DVT in her right lower extremity diagnosed in August 2021 following a tendon tear in her right foot. She was put on Eliquis for 3 months and then stopped. She currently has been following with orthopedics again for an ankle injury she states that she felt it pop, then again felt a pop in her calf and behind her knee. She states that they thought that she had a Betts's cyst. In a gastro tear in the calf muscle, she was scheduled for an MRI tomorrow. She denies any previous knowledge of any clotting disorder. She had a venous duplex of the left lower extremity that is positive for diffuse DVT throughout the left lower extremity extending from the external iliac vein through the proximal calf veins. Vascular surgery was consulted for DVT. States her father also had a history of pulmonary embolism following the cardiac bypass. She denies any shortness of breath or chest pain. She also is a half-pack a day smoker 20 years. Denies any other previous past medical history. Patient is currently on a heparin drip. Review of Systems A 14 point review of systems was completed all pertinent positives and negatives as stated in the HPI. Past Medical History Past Medical History: GERD/Reflux, GI Bleed, Thyroid Disorder Additional Past Medical History / Comment(s): Recent Cholangitis. Groin cyst lanced 06/04/21, finishing Levaquin 06/10/21 and Bactrim 06/12/21. Hx bulging disc, Shingles. Positive occult blood in stool. Hypothyroid, hyperparathyroid. History of Any Multi-Drug Resistant Organisms: None Reported Past Surgical History: Adenoidectomy, Ear Surgery Additional Past Surgical History / Comment(s): SUB-THYROIDECTOMY. BMT. Ossular left ear reconstruction w/ prosthesis. [place] teeth. Breast biopsy - benign. Cyst in groin area lanced. Past Anesthesia/Blood Transfusion Reactions: Postoperative Nausea & Vomiting (PONV) Past Psychological History: Anxiety Smoking Status: Current every day smoker Past Alcohol Use History: Occasional Past Drug Use History: None Reported - Past Family History Father Family Medical History: Deep Vein Thrombosis (DVT), Pulmonary Embolus Sister(s) Family Medical History: Pulmonary Embolus Medications and Allergies Home Medications Medication Instructions Recorded Confirmed Type Levothyroxine Sodium [Tirosint] 137 mcg PO QAM 12/24/16 02/02/22 History clonazePAM [KlonoPIN] 0.25 mg PO DAILY PRN 05/08/21 02/02/22 History Esomeprazole Magnesium [NexIUM 20 mg PO BID PRN 09/01/21 02/02/22 History 24Hr] Norethindrone-E.estradiol-Iron 1 tab PO DAILY 10/22/21 02/02/22 History [Ryan 24 Fe 1 mg-20 Mcg Tablet] Doxycycline Hyclate 100 mg PO BID 02/02/22 02/02/22 History Famotidine 40 mg PO BID PRN 02/02/22 02/02/22 History HYDROcodone/APAP 7.5-325MG [[place] 1 tab PO Q4H PRN 02/02/22 02/02/22 History 7.5-325] Ibuprofen [Motrin] 600 mg PO Q6HR PRN 02/02/22 02/02/22 History Ondansetron [Zofran ODT] 4 mg PO Q8HR PRN 02/02/22 02/02/22 History Allergies Allergy/AdvReac Type Severity Reaction Status Date / Time garlic AdvReac Diarrhea & Verified 02/02/22 14:22 Heart Burn Surgical - Exam Vital Signs Temp Pulse Resp BP Pulse Ox 97.4 F L 95 20 154/112 97 02/02/22 12:29 02/02/22 12:29 02/02/22 12:29 02/02/22 12:29 02/02/22 12:29 General appearance: The patient is alert, oriented, appears in no acute distress. HET: Head is normocephalic and atraumatic. Pupils are equal and reactive. Neck: Supple without lymphadenopathy. Trachea midline. Heart: S1 S2. Regular rate and rhythm. Lungs: Clear to auscultation bilaterally. Abdomen: Soft, nontender, nondistended. Extremities: Left lower extremity swelling and redness from the thigh down. She has palpable dorsalis pedis pulse. Foot is cool to touch, with some decreased motor skills. She has tenderness to palpation of calf and ankle, however this is related to recent injury. Neurological: No focal deficits. Strength and sensation are grossly intact. Results - Labs 02/03/22 02:49 02/02/22 12:53 Abnormal Lab Results - Last 24 Hours (Table) 02/02/22 Range/Units 12:53 Glucose 108 H (74-99) mg/dL Diabetes panel 02/02/22 Range/Units 12:53 Sodium 137 (137-145) mmol/L Potassium 3.9 (3.5-5.1) mmol/L Chloride 105 (98-107) mmol/L Carbon Dioxide 22 (22-30) mmol/L BUN 7 (7-17) mg/dL Creatinine 0.64 (0.52-1.04) mg/dL Glucose 108 H (74-99) mg/dL Calcium 8.9 (8.4-10.2) mg/dL AST 22 (14-36) U/L ALT 18 (4-34) U/L Alkaline Phosphatase 67 (38-126) U/L Total Protein 6.9 (6.3-8.2) g/dL Albumin 3.7 (3.5-5.0) g/dL Calcium panel 02/02/22 Range/Units 12:53 Calcium 8.9 (8.4-10.2) mg/dL Albumin 3.7 (3.5-5.0) g/dL Pituitary panel 02/02/22 Range/Units 12:53 Sodium 137 (137-145) mmol/L Potassium 3.9 (3.5-5.1) mmol/L Chloride 105 (98-107) mmol/L Carbon Dioxide 22 (22-30) mmol/L BUN 7 (7-17) mg/dL Creatinine 0.64 (0.52-1.04) mg/dL Glucose 108 H (74-99) mg/dL Calcium 8.9 (8.4-10.2) mg/dL Adrenal panel 02/02/22 Range/Units 12:53 Sodium 137 (137-145) mmol/L Potassium 3.9 (3.5-5.1) mmol/L Chloride 105 (98-107) mmol/L Carbon Dioxide 22 (22-30) mmol/L BUN 7 (7-17) mg/dL Creatinine 0.64 (0.52-1.04) mg/dL Glucose 108 H (74-99) mg/dL Calcium 8.9 (8.4-10.2) mg/dL Total Bilirubin 0.5 (0.2-1.3) mg/dL AST 22 (14-36) U/L ALT 18 (4-34) U/L Alkaline Phosphatase 67 (38-126) U/L Total Protein 6.9 (6.3-8.2) g/dL Albumin 3.7 (3.5-5.0) g/dL - Imaging Comments: Venous duplex of the left lower extremity that is positive for diffuse DVT throughout the left lower extremity extending from the external iliac vein through the proximal calf veins. Assessment and Plan Assessment: 1. Left lower extremity DVT extending from external iliac through proximal calf veins 2. History of recent left lower extremity injury, patient with decreased mobilization using crutches 3. History of recent right lower extremity DVT not on any anticoagulation currently. 4. 4. Current everyday smoker, 1/2 ppd x20 years Plan: 1. Continue high-intensity heparin drip 2. Discuss with patient importance of smoking cessation 3. CT abdomen/pelvis venous phase ordered 4. Further recommendations forthcoming per vascular surgeon Thank you for this consultation, we will continue to follow. The impression and plan of care has been dictated as directed. Dr. Epstein I performed a history and examination of this patient, discussed the same with the dictator. I agree with the dictator's note ,documented as a scribe. Any additional findings or plans will be noted.
[2022-02-02] MEDS: HYDROmorphone 0.5 MG/0.5 ML SYRINGE IVP PRN ×3 (15:20→22:06)
[2022-02-02] MEDS: IOPAMIDOL CONTRAST (ORAL USE) VIAL PO PRN ×2 (17:24→18:30)
[2022-02-02] MEDS ORDERED: FAMOTIDINE 20 MG TAB PO PRN (17:38)
[2022-02-02] MEDS ORDERED: ONDANSETRON ODT 4 MG TAB PO PRN (17:38)
[2022-02-02] MEDS ORDERED: clonazePAM 0.5 MG TAB PO PRN (17:38)
[2022-02-02] MEDS ORDERED: IBUPROFEN 600 MG TAB PO PRN (17:38)
[2022-02-02] MEDS: PANTOPRAZOLE 40 MG TABLET PO PRN (18:17)
--- NOTE | 2022-02-02 19:16 | P.HPIM ---
History of Present Illness H&P Date: 02/02/22 Crys Monterroso, is a 41-year-old female who presented to [facility] emergency room with a chief complaint of left lower extremity pain and swelling. Patient stated that she had an injury to her left lower extremity she was seen by orthopedic surgery and was scheduled to have an MRI on 02/03/2022 to assess for a possible tendon rupture in the calf area, however patient started having more pain and swelling in the thigh area and decided to come to emergency room, she underwent left lower extremity Doppler that was positive for DVT extending from the external iliac vein through the proximal calf veins. She was started on IV heparin and was admitted to medical floor, vascular surgery consultation was requested. Patient stated that 6 months ago she had an injury to her right foot and subsequently she had a blood clot in the right popliteal area, she was treated with Eliquis for 3 months, patient denies any previous history of blood clots. She states that her father had a pulmonary embolism after cardiac surgery, no other family history of blood clots. She stated that her mother had heparin associated thrombocytopenia. Her risk factors include history of smoking, and patient is taking oral control pills. Past Medical History Past Medical History: GERD/Reflux, GI Bleed, Thyroid Disorder Additional Past Medical History / Comment(s): Recent Cholangitis. Groin cyst lanced 06/04/21, finishing Levaquin 06/10/21 and Bactrim 06/12/21. Hx bulging disc, Shingles. Positive occult blood in stool. Hypothyroid, hyperparathyroid. Hydradenitis Suppurativa History of Any Multi-Drug Resistant Organisms: None Reported Past Surgical History: Adenoidectomy, Ear Surgery Additional Past Surgical History / Comment(s): SUB-THYROIDECTOMY. BMT. Ossular left ear reconstruction w/ prosthesis. [place] teeth. Breast biopsy - benign. Cy st in groin area lanced. Past Anesthesia/Blood Transfusion Reactions: Postoperative Nausea & Vomiting (PONV) Past Psychological History: Anxiety Smoking Status: Current every day smoker Past Alcohol Use History: Occasional Additional Past Alcohol Use History / Comment(s): STARTED SMOKING AGE 18, SMOKES 1 PPD. Past Drug Use History: None Reported - Past Family History Father Family Medical History: Deep Vein Thrombosis (DVT), Pulmonary Embolus Sister(s) Family Medical History: Pulmonary Embolus Medications and Allergies Home Medications Medication Instructions Recorded Confirmed Type Levothyroxine Sodium [Tirosint] 137 mcg PO QAM 12/24/16 02/02/22 History clonazePAM [KlonoPIN] 0.25 mg PO DAILY PRN 05/08/21 02/02/22 History Esomeprazole Magnesium [NexIUM 20 mg PO BID PRN 09/01/21 02/02/22 History 24Hr] Norethindrone-E.estradiol-Iron 1 tab PO DAILY 10/22/21 02/02/22 History [Ryan 24 Fe 1 mg-20 Mcg Tablet] Doxycycline Hyclate 100 mg PO BID 02/02/22 02/02/22 History Famotidine 40 mg PO BID PRN 02/02/22 02/02/22 History HYDROcodone/APAP 7.5-325MG [[place] 1 tab PO Q4H PRN 02/02/22 02/02/22 History 7.5-325] Ibuprofen [Motrin] 600 mg PO Q6HR PRN 02/02/22 02/02/22 History Ondansetron [Zofran ODT] 4 mg PO Q8HR PRN 02/02/22 02/02/22 History Allergies Allergy/AdvReac Type Severity Reaction Status Date / Time garlic AdvReac Diarrhea & Verified 02/02/22 14:22 Heart Burn Physical Exam Vitals: Vital Signs Temp Pulse Resp BP Pulse Ox 02/02/22 15:39 98.2 F 77 18 130/85 99 02/02/22 14:00 90 18 129/82 96 02/02/22 12:29 97.4 F L 95 20 154/112 97 Intake and Output 02/02/22 02/02/22 02/02/22 06:59 14:59 22:59 Other: Weight 78.018 kg 78.018 kg In general patient is alert and oriented x 3 in no distress HEENT head normocephalic and atraumatic Neck is supple no JVD no goiter no lymphadenopathy no carotid bruit Chest examination is clear to auscultation no crackles no wheezing Cardiac exam reveals regular heart sounds S1 and S2 no gallops no murmurs Abdomen is soft nontender no organomegaly with normal bowel sounds Extremity exam reveals no edema no cyanosis or clubbing Neurological examination reveals no gross focal deficits Results CBC & Chem 7: 02/02/22 12:53 02/02/22 12:53 Labs: Abnormal Lab Results - Last 24 Hours (Table) 02/02/22 Range/Units 12:53 Glucose 108 H (74-99) mg/dL Thrombosis Risk Factor Assmnt - Choose All That Apply Each Factor Represents 1 point: Age 41-60 years Each Risk Factor Represents 3 Points: History of DVT/PE Thrombosis Risk Factor Assessment Total Risk Factor Score: 4 Thrombosis Risk Factor Assessment Level: Moderate Risk Assessment and Plan Plan: 1. Left lower extremity extensive DVT, patient was started on IV heparin in the emergency room, vascular surgery consultation was requested 2. History of smoking patient was counseled in length in regards to importance of smoking cessation 3. Will consult hematology, for workup related to recurrent DVT 4. Underlying history of hypothyroidism maintained on Synthroid. 5. Underlying history of gastroesophageal reflux disease At this time patient was seen and examined Continue with IV heparin Awaiting recommendations from vascular surgery Consult hematology Recheck labs and follow-up in a.m.
--- NOTE | 2022-02-02 19:42 | CT ---
EXAMINATION TYPE: CT abdomen pelvis w con DATE OF EXAM: 02/02/2022 HISTORY: LLE DVT Pain . CT DLP: 1561.3mGycm Automated Exposure Control for Dose Reduction was Utilized. CONTRAST: CT scan of the abdomen and pelvis is performed with oral and with IV Contrast, patient injected with 100ML mL of Isovue 300. COMPARISON: CT abdomen and pelvis January 22, 2022 FINDINGS: LUNG BASES: No significant abnormality is appreciated. LIVER/GB: No significant abnormality is appreciated. PANCREAS: No significant abnormality is seen. SPLEEN: No significant abnormality is seen. ADRENALS: No significant abnormality is seen. KIDNEYS: No significant abnormality is seen. BOWEL: The oral contrast does not reach the level of the terminal ileum making evaluation of distal b owel slightly suboptimal. No suspicious small or large bowel dilatation is identified. Terminal ileum shows no suspicious wall thickening. Fecal material is seen in nondistended colon. Normal size appen skye ascending from cecum. UTERUS/ADNEXA: Anteverted uterus bulky uterus redemonstrated. There is 2.4 cm enhancing lesion left a spect of uterus probable intramural fibroid axial image 66. Superior to this left ovary has new 2.8 c m prominent follicle or simple thin-walled ovarian cyst axial image 58 LYMPH NODES: No new greater than 1cm abdominal or pelvic lymph nodes are appreciated. OSSEOUS STRUCTURES: Mild to moderate disc space narrowing right L4-L5 level with vacuum disc phenomen on is redemonstrated. OTHER: Mild fat stranding surrounds left groin femoral vessels. No obvious expansion or clot identifi ed in the left pelvic or groin vessels to correlate with recent ultrasound which is more sensitive. B oth right and left-sided veins are more prominent in size from recent CT study IMPRESSION: No new or acute finding identified in the abdomen or pelvis. No obvious venous clot on CT . Venous structures of the pelvis and bilateral groin region are more prominent from prior CT. Given ultrasound findings in the left lower extremity I would advise repeat ultrasound right lower extremit y to exclude new clot at this level.
[2022-02-02] MEDS: HYDROcodone/APAP 7.5-325MG 1 EACH TAB PO PRN (20:34)
[2022-02-03] MEDS: HYDROmorphone 0.5 MG/0.5 ML SYRINGE IVP PRN ×5 (02:06→18:43)
[2022-02-03 03:29] LABS: Basophils # (A) 0.1 k/uL (0-0.2); Basophils % (A) 1 %; Eosinophils # (A) 0.4 k/uL (0-0.7); Eosinophils % (A) 5 %; HCT 35.8 % (34.0-46.0); HGB 11.8 gm/dL (11.4-16.0); Lymphocytes # (A) 2.6 k/uL (1.0-4.8); Lymphocytes % (A) 35 %; MCH 32.6 pg (25.0-35.0); MCV 98.5 fL (80.0-100.0); Mean Platelet Volume 10.5; Monocytes # (A) 0.5 k/uL (0-1.0); Monocytes % (A) 6 %; Neutrophils # (A) 3.9 k/uL (1.3-7.7); Neutrophils % (A) 51 %; Platelet Count 165 k/uL (150-450); RBC 3.64 m/uL (3.80-5.40); RDW 12.5 % (11.5-15.5); WBC 7.6 k/uL (3.8-10.6)
[2022-02-03] MEDS: HYDROcodone/APAP 7.5-325MG 1 EACH TAB PO PRN ×3 (04:12→20:53)
[2022-02-03] MEDS: LEVOTHYROXINE 137 MCG TAB PO SCH (06:30)
[2022-02-03] MEDS: HEPARIN SOD,PORK IN 0.45% NACL 25,000 UNIT in 0.45% NACL 1 250ML.BAG IV SCH (06:35)
[2022-02-03] MEDS: APIXABAN 5 MG TAB PO SCH ×2 (08:45→20:53)
[2022-02-03] MEDS: PANTOPRAZOLE 40 MG TABLET PO PRN (08:55)
--- NOTE | 2022-02-03 10:05 | P.PN ---
Subjective Progress Note Date: 02/03/22 Principal diagnosis: DVT left lower extremity This is a 41-year-old female who was seen today as a follow-up for extensive DVT of left lower extremity. She underwent a CT of the abdomen and pelvis venous phase that reported no obvious venous clot on CT. Venous structures of the pelvis and bilateral groin region are more prominent from prior CT. However there was iliac vein compression. She states that the pain is a little bit improved today. Still has swelling to left lower extremity. She denies any shortness of breath or chest pain. Heparin drip infusing. Objective - Vital Signs Vital signs: Vital Signs Temp 98.2 F 02/03/22 04:00 Pulse 62 02/03/22 04:00 Resp 18 02/03/22 04:00 BP 95/55 02/03/22 04:00 Pulse Ox 95 02/03/22 04:00 Intake & Output 02/02/22 02/03/22 02/03/22 18:59 06:59 18:59 Intake Total 250.000 Balance 250.000 Weight 78.018 kg Intake: Intake, IV Titration 250.000 Amount Heparin Sod,Pork in 0.45% 250.000 NaCl 25,000 unit In 0.45 % NaCl 1 250ml.bag @ 18 UNITS/KG/HR 14.043 mls/hr IV .[id number] [facility] Rx#: [id number] Other: Voiding Method Toilet # Voids 1 - Exam General appearance: The patient is alert, oriented, appears in no acute distress. HET: Head is normocephalic and atraumatic. Pupils are equal and reactive. Neck: Supple without lymphadenopathy. Trachea midline. Heart: S1 S2. Regular rate and rhythm. Lungs: Clear to auscultation bilaterally. Abdomen: Soft, nontender, nondistended. Extremities: Left lower extremity swelling and redness from the thigh down. She has palpable dorsalis pedis pulse. She has tenderness to palpation of calf and ankle, however this is related to recent injury. Neurological: No focal deficits. Strength and sensation are grossly intact. - Labs CBC & Chem 7: 02/03/22 02:49 02/02/22 12:53 Labs: Abnormal Lab Results - Last 24 Hours (Table) 02/02/22 02/02/22 02/03/22 Range/Units 12:53 19:50 02:49 RBC 3.64 L (3.80-5.40) m/uL APTT 31.6 H (22.0-30.0) sec Glucose 108 H (74-99) mg/dL 02/03/22 Range/Units 02:49 RBC (3.80-5.40) m/uL APTT 63.9 H (22.0-30.0) sec Glucose (74-99) mg/dL Assessment and Plan Assessment: 1. 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 History of recent left lower extremity injury, patient with decreased mobilization using crutches 4. History of recent right lower extremity DVT not on any anticoagulation currently. 4. 5. Current everyday smoker, 1/2 ppd x20 years Plan: 1. Discontinue heparin drip, transitioned to eliquis 10 mg twice a day. Prescription sent to patient's pharmacy of choice. 2. Discuss with patient importance of smoking cessation 3. CT abdomen/pelvis venous phase ordered and reviewed 4. MUNIR hose compression stocking to left lower extremity, thigh high 5. At this time no plans proceeding with any vascular surgical intervention, patient to follow-up in the office next week and will discuss further outpatient intervention if needed. Thank you for this consultation, the patient is cleared for discharge from vascular surgery. The impression and plan of care has been dictated as directed. Dr. Cho I performed a history and examination of this patient, discussed the same with the dictator. I agree with the dictator's note ,documented as a scribe. Any additional findings or plans will be noted.
--- NOTE | 2022-02-03 11:50 | P.PN ---
Subjective Progress Note Date: 02/03/22 Crys Monterroso, is a 41-year-old female who presented to [facility] emergency room with a chief complaint of left lower extremity pain and swelling. Patient stated that she had an injury to her left lower extremity she was seen by orthopedic surgery and was scheduled to have an MRI on 02/03/2022 to assess for a possible tendon rupture in the calf area, however patient started having more pain and swelling in the thigh area and decided to come to emergency room, she underwent left lower extremity Doppler that was positive for DVT extending from the external iliac vein through the proximal calf veins. She was started on IV heparin and was admitted to medical floor, vascular surgery consultation was requested. Patient stated that 6 months ago she had an injury to her right foot and subsequently she had a blood clot in the right popliteal area, she was treated with Eliquis for 3 months, patient denies any previous history of blood clots. She states that her father had a pulmonary embolism after cardiac surgery, no other family history of blood clots. She stated that her mother had heparin associated thrombocytopenia. Her risk factors include history of smoking, and patient is taking oral control pills. On 02/03/2022 patient is alert and oriented 3. Patient has been transitioned to eliquis. Patient also evaluated by vascular surgery CT of abdomen and pelvis completed. Progressive surgery no plans with proceeding any vascular surgical intervention patient follow-up in the office next week and will discuss further outpatient intervention is needed. Awaiting hematology input. At this time patient denies chest pain or shortness breath. Patient denies nausea vomiting or diarrhea. Patient denies any urinary burning or frequency. Objective - Vital Signs Vital signs: Vital Signs Temp 97.1 F L 02/03/22 08:00 Pulse 71 02/03/22 08:00 Resp 18 02/03/22 08:00 BP 110/60 02/03/22 08:00 Pulse Ox 95 02/03/22 08:00 Intake & Output 02/02/22 02/03/22 02/03/22 18:59 06:59 18:59 Intake Total 250.000 Balance 250.000 Weight 78.018 kg Intake: Intake, IV Titration 250.000 Amount Heparin Sod,Pork in 0.45% 250.000 NaCl 25,000 unit In 0.45 % NaCl 1 250ml.bag @ 18 UNITS/KG/HR 14.043 mls/hr IV .[id number] REPLACED BY [facility] Rx#: [id number] Other: Voiding Method Toilet # Voids 1 - Exam In general patient is alert and oriented x 3 in no distress HEENT head normocephalic and atraumatic Neck is supple no JVD no goiter no lymphadenopathy no carotid bruit Chest examination is clear to auscultation no crackles no wheezing Cardiac exam reveals regular heart sounds S1 and S2 no gallops no murmurs Abdomen is soft nontender no organomegaly with normal bowel sounds Extremity exam reveals no edema no cyanosis or clubbing Neurological examination reveals no gross focal deficits - Labs CBC & Chem 7: 02/03/22 02:49 02/02/22 12:53 Labs: Abnormal Lab Results - Last 24 Hours (Table) 02/02/22 02/02/22 02/03/22 Range/Units 12:53 19:50 02:49 RBC 3.64 L (3.80-5.40) m/uL APTT 31.6 H (22.0-30.0) sec Glucose 108 H (74-99) mg/dL 02/03/22 Range/Units 02:49 RBC (3.80-5.40) m/uL APTT 63.9 H (22.0-30.0) sec Glucose (74-99) mg/dL Assessment and Plan Plan: 1. Left lower extremity extensive DVT, patient was started on IV heparin in the emergency room, vascular surgery consultation was requested 2. History of smoking patient was counseled in length in regards to importance of smoking cessation 3. Will consult hematology, for workup related to recurrent DVT 4. Underlying history of hypothyroidism maintained on Synthroid. 5. Underlying history of gastroesophageal reflux disease Patient has been transitioned to eliquis Per vascular surgery no plans for inpatient surgical intervention at this time patient to follow-up outpatient for possible scheduled outpatient intervention' Awaiting hematology input
--- NOTE | 2022-02-03 13:22 | US ---
EXAMINATION TYPE: US venous doppler duplex LE RT DATE OF EXAM: 02/03/2022 1:11 PM COMPARISON: US CLINICAL HISTORY: LLE DVT. Current DVT left leg, history of DVT right leg SIDE PERFORMED: Right TECHNIQUE: The lower extremity deep venous system is examined utilizing real time linear array sonog chilo with graded compression, doppler sonography and color-flow sonography. VESSELS IMAGED: Common Femoral Vein Deep Femoral Vein Greater Saphenous Vein * Femoral Vein Popliteal Vein Small Saphenous Vein * Proximal Calf Veins (* superficial vessels) Right Leg: Negative for DVT IMPRESSION: 1. Right lower extremity ultrasound negative for deep venous thrombosis.
--- NOTE | 2022-02-03 13:47 | P.CONS ---
History of Present Illness - Reason for Consult Consult date: 02/03/22 recurrent DVT Requesting physician: Jessa Saucedo - Chief Complaint LLE swelling - History of Present Illness Mrs. Monterroso is a very pleasant 41 yo female with Hx of RLE DVT 09/20 post foot injury, no cast but, was in air boot, she was anticoagulated with eliquis for 3 mo. She did well until recently when she developed what is being called a gastrocneimus tear vs ruptured popliteal Betts's cyst in the LLE. Pain and swelling persisted, progressed, doppler revealed extensive DVT. Currently her LLE is sore, swollen, denies fever, chest pain, SOB, cough, abd pain or di stension, no black or bloody stool, hematuria or other pain. PMH includes hypothyroidism, GERD, she is on pain meds and PRN zofran. She reports being started on oral control 04/20 for prevention. She denied any history of miscarriage, reports that menses was associated with large clots. She had colonoscopy 06/12/[address] Veliz for intermittent rectal bleeding, recommended fiber, f/u 10 years, f/u in March. EGD with Dr. Novak 10/28/21 for suspected GI bleed, found to have gastric ulcer. She had recurrence of RLE swelling in Dec, RLE doppler 12/23/21 had no evidence of DVT. Father had PE post triple bypass. Review of Systems 14 point ROS is neg except as stated in HPI Past Medical History Past Medical History: Deep Vein Thrombosis (DVT), GERD/Reflux, GI Bleed, Thyroid Disorder Additional Past Medical History / Comment(s): Recent Cholangitis. Groin cyst lanced 06/04/21, finishing Levaquin 06/10/21 and Bactrim 06/12/21. Hx bulging disc, Shingles. Positive occult blood in stool. Hypothyroid, hyperparathyroid. History of Any Multi-Drug Resistant Organisms: None Reported Past Surgical History: Adenoidectomy, Ear Surgery Additional Past Surgical History / Comment(s): SUB-THYROIDECTOMY. BMT. Ossular left ear reconstruction w/ prosthesis. Reading teeth. Breast biopsy - benign. Cyst in groin area lanced. Past Anesthesia/Blood Transfusion Reactions: Postoperative Nausea & Vomiting (PONV) Past Psychological History: Anxiety Smoking Status: Current every day smoker Past Alcohol Use History: Occasional Past Drug Use History: None Reported - Past Family History Father Family Medical History: Deep Vein Thrombosis (DVT), Pulmonary Embolus Sister(s) Family Medical History: Pulmonary Embolus Medications and Allergies Home Medications Medication Instructions Recorded Confirmed Type Levothyroxine Sodium [Tirosint] 137 mcg PO QAM 12/24/16 02/02/22 History clonazePAM [KlonoPIN] 0.25 mg PO DAILY PRN 05/08/21 02/02/22 History Esomeprazole Magnesium [NexIUM 20 mg PO BID PRN 09/01/21 02/02/22 History 24Hr] Norethindrone-E.estradiol-Iron 1 tab PO DAILY 10/22/21 02/02/22 History [Ryan 24 Fe 1 mg-20 Mcg Tablet] Doxycycline Hyclate 100 mg PO BID 02/02/22 02/02/22 History Famotidine 40 mg PO BID PRN 02/02/22 02/02/22 History HYDROcodone/APAP 7.5-325MG [[place] 1 tab PO Q4H PRN 02/02/22 02/02/22 History 7.5-325] Ibuprofen [Motrin] 600 mg PO Q6HR PRN 02/02/22 02/02/22 History Ondansetron [Zofran ODT] 4 mg PO Q8HR PRN 02/02/22 02/02/22 History Apixaban [Eliquis Starter Pack 5 - 10 mg PO DIRECTED 30 Days 02/03/22 Rx (for VTE)] #1 each Allergies Allergy/AdvReac Type Severity Reaction Status Date / Time garlic AdvReac Diarrhea & Verified 02/02/22 14:22 Heart Burn Physical Exam Vitals: Vital Signs Temp Pulse Pulse Resp BP BP Pulse Ox 02/03/22 08:00 97.1 F L 71 18 110/60 95 02/03/22 04:00 98.2 F 62 18 95/55 95 02/02/22 23:57 98.0 F 82 18 122/70 96 02/02/22 20:00 98.2 F 81 18 117/71 95 02/02/22 16:00 77 18 123/91 97 02/02/22 15:39 98.2 F 77 18 130/85 99 02/02/22 14:00 90 18 129/82 96 Intake and Output 02/02/22 02/03/22 02/03/22 22:59 06:59 14:59 Intake Total 88.003 161.997 Balance 88.003 161.997 Intake: Intake, IV Titration 88.003 161.997 Amount Heparin Sod,Pork in 0.45% 88.003 161.997 NaCl 25,000 unit In 0.45 % NaCl 1 250ml.bag @ 18 UNITS/KG/HR 14.043 mls/hr IV .[id number] [facility] Rx#: [id number] Other: Voiding Method Toilet Toilet # Voids 2 1 Weight 78.018 kg - Constitutional General appearance: average body habitus, cooperative, no acute distress - EENT Eyes: anicteric sclerae, EOMI ENT: hearing grossly normal, normal oropharynx - Neck Neck: no lymphadenopathy - Respiratory Respiratory: bilateral: CTA - Cardiovascular Rhythm: regular Heart sounds: normal: S1, S2 Abnormal Heart Sounds: no systolic murmur, no diastolic murmur, no rub, no S3 Gallop, no S4 Gallop, no click, no other leg Peripheral Edema: right: None, left: 2+ - Gastrointestinal General gastrointestinal: no absent bowel sounds, no decreased bowel sounds, no distended, no hepatomegaly, no hyperactive bowel sounds, normal bowel sounds, no organomegaly, no rigid, no scaphoid, soft, no splenomegaly, no tenderness, no umbilical hernia, no ventral hernia - Integumentary Integumentary: normal - Neurologic Neurologic: CNII-XII intact - Musculoskeletal Musculoskeletal: strength equal bilaterally - Psychiatric Psychiatric: A&O x's 3, appropriate affect, intact judgment & insight Results CBC & Chem 7: 02/03/22 02:49 02/02/22 12:53 Labs: Abnormal Lab Results - Last 24 Hours (Table) 02/02/22 02/02/22 02/03/22 Range/Units 12:53 19:50 02:49 RBC 3.64 L (3.80-5.40) m/uL APTT 31.6 H (22.0-30.0) sec Glucose 108 H (74-99) mg/dL 02/03/22 Range/Units 02:49 RBC (3.80-5.40) m/uL APTT 63.9 H (22.0-30.0) sec Glucose (74-99) mg/dL Venous US: report reviewed Assessment and Plan (1) Deep vein thrombosis (DVT) of lower extremity Narrative/Plan: Pt has a Hx of RLE DVT about 09/20 after a foot injury, anti-coagulated for 3 months with eliquis. Now has recurrent, extensive LLE DVT post gastrocnemius injury/?Betts's cyst rupture. Pt states she has been on OBC since 04/20, this was not changed or discontinued after 1st blood clot. Recommendation is for discontinuation of hormonal control, even low dose since pt has had two episodes of DVT with relatively minor provoking factors. Pending baseline doppler of RLE and CTA ordered. Plan for hypercoaguable work up out pt. Agree with eliquis treatment. Duration of anticoagulation, with removal of provoking factors-injury and OBC-may be 3 mo. Pt will f/u with Hematology outpt for final plan. Current Visit: Yes Status: Acute Priority: High Code(s): I82.409 - ACUTE EMBOLISM AND THOMBOS UNSP DEEP VN UNSP LOWER EXTREMITY SNOMED Code(s): 273651493 Plan: Doctor attests: I performed a history and physical examination of this patient, developed impression and plan of care, discussed with dictator. I agree with dictators note, documented as a scribe. Time with Patient: Greater than 30
[2022-02-03 16:39] LABS: African American GFR (CKD) >90 (>60 ml/min/1.73 sqM); Anion Gap 6 mmol/L; Blood Urea Nitrogen 8 mg/dL (7-17); Calcium 8.7 mg/dL (8.4-10.2); Carbon Dioxide 28 mmol/L (22-30); Chloride 102 mmol/L (98-107); Glucose 90 mg/dL (74-99); Non-African American GFR(CKD) 85 (>60 ml/min/1.73 sqM); Potassium 4.3 mmol/L (3.5-5.1); Sodium 136 mmol/L (137-145)
[2022-02-03] MEDS: NORETHINDRONE E ESTRADIOL IRON PO SCH (19:51)
--- NOTE | 2022-02-03 20:55 | CT ---
EXAMINATION TYPE: CT brain wo con DATE OF EXAM: 02/03/2022 COMPARISON: 02/08/2019 HISTORY: HEADACHE ON ANTICOAGULATION TECHNIQUE: CT scan of the head performed without contrast CT DLP: 1111.4 mGycm Automated exposure control for dose reduction was used. FINDINGS: No acute intracranial hemorrhage midline shift or mass effect. Hutson-white matter differentiation is preserved. CSF spaces and ventricles are normal in configuration. Acute intraorbital, osseous or soft tissue abnormalities seen. Calcifications are noted in the region of the pineal gland prior study. Mild mucosal thickening seen in the left maxillary sinus. No air-fluid level in the mastoid air cells are paranasal sinuses. IMPRESSION: NO ACUTE INTRACRANIAL HEMORRHAGE, MIDLINE SHIFT OR MASS EFFECT.
--- NOTE | 2022-02-03 21:02 | CT ---
EXAMINATION TYPE: CT angio chest DATE OF EXAM: 02/03/2022 8:46 PM COMPARISON: HISTORY: slurred speech CT DLP: 434.2 mGycm Automated exposure control for dose reduction was used. CONTRAST: CTA scan of the thorax is performed with IV Contrast, patient injected with 65 mL of Isovue 370, pulm onary embolism protocol.MIP reformats available. No 3d reconstruction. FINDINGS: LUNGS: The lungs are grossly clear, there is no concerning parenchymal mass or nodule identified. T here is no pleural effusion or pneumothorax seen. The tracheobronchial tree is patent. MEDIASTINUM: There is satisfactory enhancement of the pulmonary artery and its branches, there is no CT evidence for pulmonary embolism. There are no greater than 1 cm hilar or mediastinal lymph nodes. No pericardial effusion is seen. OTHER: Upper abdomen is unremarkable. OSSEOUS STRUCTURES: No significant osseous abnormalities seen. IMPRESSION: 1. NO EVIDENCE FOR PULMONARY ARTERIAL EMBOLISM. 2. NO ACUTE INTRATHORACIC ABNORMALITIES.
[2022-02-04] MEDS: HYDROcodone/APAP 7.5-325MG 1 EACH TAB PO PRN ×3 (01:49→14:28)
[2022-02-04 04:55] VITALS: RESP 16
[2022-02-04] MEDS: LEVOTHYROXINE 137 MCG TAB PO SCH (06:44)
[2022-02-04 07:24] LABS: Basophils % (A) 1 %; Eosinophils # (A) 0.3 k/uL (0-0.7); Eosinophils % (A) 4 %; HCT 39.1 % (34.0-46.0); HGB 12.9 gm/dL (11.4-16.0); Lymphocytes # (A) 1.9 k/uL (1.0-4.8); Lymphocytes % (A) 30 %; MCH 32.4 pg (25.0-35.0); MCV 98.2 fL (80.0-100.0); Mean Platelet Volume 10.3; Monocytes # (A) 0.4 k/uL (0-1.0); Monocytes % (A) 6 %; Neutrophils # (A) 3.6 k/uL (1.3-7.7); Neutrophils % (A) 58 %; Platelet Count 198 k/uL (150-450); RBC 3.98 m/uL (3.80-5.40); RDW 12.6 % (11.5-15.5); WBC 6.3 k/uL (3.8-10.6)
[2022-02-04 07:41] LABS: ALT 18 U/L (4-34); AST 22 U/L (14-36); African American GFR (CKD) >90 (>60 ml/min/1.73 sqM); Albumin 3.1 g/dL (3.5-5.0); Alkaline Phosphatase 57 U/L (38-126); Anion Gap 4 mmol/L; Blood Urea Nitrogen 5 mg/dL (7-17); Calcium 8.9 mg/dL (8.4-10.2); Carbon Dioxide 26 mmol/L (22-30); Chloride 106 mmol/L (98-107); Glucose 91 mg/dL (74-99); Non-African American GFR(CKD) >90 (>60 ml/min/1.73 sqM); Potassium 4.5 mmol/L (3.5-5.1); Sodium 136 mmol/L (137-145); Total Bilirubin 0.5 mg/dL (0.2-1.3); Total Protein 6.1 g/dL (6.3-8.2)
[2022-02-04] MEDS: APIXABAN 5 MG TAB PO SCH (10:11)
[2022-02-04] MEDS: NORETHINDRONE E ESTRADIOL IRON PO SCH (10:14)
--- NOTE | 2022-02-04 10:18 | P.PN ---
Subjective Progress Note Date: 02/04/22 Principal diagnosis: DVT left lower extremity This is a 41-year-old female who was seen today as a follow-up for extensive DVT of left lower extremity. She underwent a CT of the abdomen and pelvis venous phase that reported no obvious venous clot on CT. Venous structures of the pelvis and bilateral groin region are more prominent from prior CT. However there was iliac vein compression. Patient states swelling has improved some, she's had a MUNIR hose stocking on the left lower extremity. States she is starting to get more feeling back in her left lower extremity, numbness and tingling has gone away. She was seen and evaluated by hematology yesterday who ordered a right lower extremity venous duplex which was negative for DVT. A CT of the brain and CT angiogram of chest. CT of brain no acute findings, CTA of chest negative for pulmonary embolism. Patient has been transitioned to [facility] and is doing well. She denies any shortness of breath or chest pain. Objective - Vital Signs Vital signs: Vital Signs Temp 98.4 F 02/04/22 04:00 Pulse 94 02/04/22 04:00 Resp 16 02/04/22 04:00 BP 103/61 02/04/22 04:00 Pulse Ox 98 02/04/22 04:00 Intake & Output 02/03/22 02/04/22 02/04/22 18:59 06:59 18:59 Intake Total 560 540 240 Balance 560 540 240 Intake: Oral 560 540 240 Other: Voiding Method Toilet # Voids 1 - Exam General appearance: The patient is alert, oriented, appears in no acute distress. HET: Head is normocephalic and atraumatic. Pupils are equal and reactive. Neck: Supple without lymphadenopathy. Trachea midline. Heart: S1 S2. Regular rate and rhythm. Lungs: Clear to auscultation bilaterally. Abdomen: Soft, nontender, nondistended. Extremities: Left lower extremity swelling. She has palpable dorsalis pedis pulses. She has tenderness to palpation of calf and ankle, however this is related to recent injury. Has full range of motion the left lower extremity able to wiggle toes. Neurological: No focal deficits. Strength and sensation are grossly intact. - Labs CBC & Chem 7: 02/04/22 07:06 02/04/22 07:06 Labs: Abnormal Lab Results - Last 24 Hours (Table) 02/03/22 02/04/22 Range/Units 15:59 07:06 Sodium 136 L 136 L (137-145) mmol/L BUN 5 L (7-17) mg/dL Total Protein 6.1 L (6.3-8.2) g/dL Albumin 3.1 L (3.5-5.0) g/dL Assessment and Plan Assessment: 1. 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 History of recent left lower extremity injury, patient with decreased mobilization using crutches 4. History of recent right lower extremity DVT not on any anticoagulation currently. 4. 5. Current everyday smoker, 1/2 ppd x20 years Plan: 1. Discontinue heparin drip, transitioned to eliquis 10 mg twice a day. Prescription sent to patient's pharmacy of choice. 2. Discuss with patient importance of smoking cessation 3. CT abdomen/pelvis venous phase ordered and reviewed 4. MUNIR hose compression stocking to left lower extremity, thigh high 5. At this time no plans proceeding with any vascular surgical intervention, patient to follow-up in the office next week and will discuss further outpatient intervention if needed. Thank you for this consultation, the patient is cleared for discharge from vascular surgery. The impression and plan of care has been dictated as directed. Dr. Neal I performed a history and examination of this patient, discussed the same with the dictator. I agree with the dictator's note ,documented as a scribe. Any additional findings or plans will be noted.
[2022-02-04 10:30] VITALS: BP 109/74; TEMP 98.2
[2022-02-04 14:40] VITALS: PULSE 70
[2022-02-04] MEDS: PANTOPRAZOLE 40 MG TABLET PO PRN (15:01)
--- NOTE | 2022-02-07 09:45 | P.DS ---
Providers Date of admission: 02/02/22 13:44 Expected date of discharge: 02/04/22 Attending physician: Jessa Saucedo Consults: 02/02/22 13:44 Consult Physician Routine Consulting Provider: Frandy Epstein Consult Reason/Comments: DVT Do you want consulting provider notified?: Already Contacted 02/03/22 09:24 Consult Physician Routine Consulting Provider: Pedro Pablo Jones Consult Reason/Comments: DVT Do you want consulting provider notified?: Yes Primary care physician: Randa Flores Hospital Course: Discharge diagnosis 1. Left lower extremity extensive DVT, patient was started on IV heparin in the emergency room, vascular surgery consultation was requested 2. History of smoking patient was counseled in length in regards to importance of smoking cessation 3. Will consult hematology, for workup related to recurrent DVT 4. Underlying history of hypothyroidism maintained on Synthroid. 5. Underlying history of gastroesophageal reflux disease Hospital course Crys Monterroso, is a 41-year-old female who presented to [facility] emergency room with a chief complaint of left lower extremity pain and swelling. Patient stated that she had an injury to her left lower extremity she was seen by orthopedic surgery and was scheduled to have an MRI on 02/03/2022 to assess for a possible tendon rupture in the calf area, however patient started having more pain and swelling in the thigh area and decided to come to emergency room, she underwent left lower extremity Doppler that was positive for DVT extending from the external iliac vein through the proximal calf veins. She was started on IV heparin and was admitted to medical floor, vascular surgery consultation was requested. Patient stated that 6 months ago she had an injury to her right foot and subsequently she had a blood clot in the right popliteal area, she was treated with Eliquis for 3 months, patient denies any previous history of blood clots. She states that her father had a pulmonary embolism after cardiac surgery, no other family history of blood clots. She stated that her mother had heparin associated thrombocytopenia. Her risk factors include history of smoking, and patient is taking oral control pills. On 02/03/2022 patient is alert and oriented 3. Patient has been transitioned to eliquis. Patient also evaluated by vascular surgery CT of abdomen and pelvis completed. Progressive surgery no plans with proceeding any vascular surgical intervention patient follow-up in the office next week and will discuss further outpatient intervention is needed. Awaiting hematology input. At this time patient denies chest pain or shortness breath. Patient denies nausea vomiting or diarrhea. Patient denies any urinary burning or frequency. On 02/04/2022 patient is alert and oriented 3. Patient was evaluated by hematology and vascular surgery patient will be discharged on eliquis. CT of the brain completed showing no acute findings CT of chest negative for pulmonary embolism. Patient will follow-up PCP consulting providers for further management chronic conditions Patient Condition at Discharge: Stable Plan - Discharge Summary New Discharge Prescriptions: New Apixaban [Eliquis Starter Pack (for VTE)] 5 - 10 mg PO DIRECTED 30 Days #1 each Continue Levothyroxine Sodium [Tirosint] 137 mcg PO QAM clonazePAM [KlonoPIN] 0.25 mg PO DAILY PRN PRN Reason: Anxiety Ondansetron [Zofran ODT] 4 mg PO Q8HR PRN PRN Reason: Nausea HYDROcodone/APAP 7.5-325MG [Sharon 7.5-325] 1 tab PO Q4H PRN PRN Reason: Pain Esomeprazole Magnesium [NexIUM 24Hr] 20 mg PO BID PRN PRN Reason: GERD Famotidine 40 mg PO BID PRN PRN Reason: GERD Ibuprofen [Motrin] 600 mg PO Q6HR PRN PRN Reason: Pain Discontinued Norethindrone-E.estradiol-Iron [Ryan 24 Fe 1 mg-20 Mcg Tablet] 1 tab PO DAILY Doxycycline Hyclate 100 mg PO BID Discharge Medication List Levothyroxine Sodium [Tirosint] 137 mcg PO QAM 12/24/16 [History] clonazePAM [KlonoPIN] 0.25 mg PO DAILY PRN 05/08/21 [History] Esomeprazole Magnesium [NexIUM 24Hr] 20 mg PO BID PRN 09/01/21 [History] Famotidine 40 mg PO BID PRN 02/02/22 [History] HYDROcodone/APAP 7.5-325MG [Sharon 7.5-325] 1 tab PO Q4H PRN 02/02/22 [History] Ibuprofen [Motrin] 600 mg PO Q6HR PRN 02/02/22 [History] Ondansetron [Zofran ODT] 4 mg PO Q8HR PRN 02/02/22 [History] Apixaban [Eliquis Starter Pack (for VTE)] 5 - 10 mg PO DIRECTED 30 Days #1 each 02/03/22 [Rx] Follow up Appointment(s)/Referral(s): Randa Flores MD [Primary Care Provider] - 02/10/22 11:15 am Susan Cho DO [STAFF PHYSICIAN] - 02/10/22 9:15 am (The office is going to mail you paperwork, please complete and bring with you. If you do not recieve the paperwork prior to appointment please come 20 minutes early. ) Patient Instructions/Handouts: Cigarette Smoking and Your Health (GEN), Deep Vein Thrombosis (DC) Discharge Disposition: HOME SELF-CARE
== END 2022-02-04 16:00 | disposition home or self-care (01) ==
LOC: EC 12:11 → INTOOBSV 13:44 → 3SCARD 13:44 → UNDODISIN 02-04 16:00
PROVIDERS: ADMIT Internal Medicine; ATTEND Internal Medicine
DX: I82.422 Acute embolism and thrombosis of left iliac vein (principal); I87.1 Compression of vein; I82.4Z2 Acute embolism and thrombosis of unspecified deep veins of left distal lower extremity; E89.0 Postprocedural hypothyroidism; F41.9 Anxiety disorder, unspecified; K21.9 Gastro-esophageal reflux disease without esophagitis; S89.92XA Unspecified injury of left lower leg, initial encounter; F17.210 Nicotine dependence, cigarettes, uncomplicated; Z79.3 Long term (current) use of hormonal contraceptives; Z79.01 Long term (current) use of anticoagulants; Z79.890 Hormone replacement therapy; Z79.899 Other long term (current) drug therapy; Z91.018 Allergy to other foods; Z86.718 Personal history of other venous thrombosis and embolism; Z87.19 Personal history of other diseases of the digestive system; Z86.19 Personal history of other infectious and parasitic diseases; Z98.890 Other specified postprocedural states; Z87.39 Personal history of other diseases of the musculoskeletal system and connective tissue; Z87.828 Personal history of other (healed) physical injury and trauma; Z87.11 Personal history of peptic ulcer disease; Z82.49 Family history of ischemic heart disease and other diseases of the circulatory system; Z83.2 Family history of diseases of the blood and blood-forming organs and certain disorders involving the immune mechanism; Z71.6 Tobacco abuse counseling
CPT/HCPCS: 96376 ×3; 96366 ×3; 96365; 96375; 99285; 36415; 80053 ×2; 80048; 83605; 83735; 85025 ×3; 85610; 85730 ×2; 93971 ×2; 70450; 71275; 74177; G0378 ×3; J2270; J2405; J1644 ×3; J1170 ×2; Q9967 ×2

== ENCOUNTER → 2022-03-01 | Outpatient (CLI) | payer BC ==
--- NOTE | 2022-03-02 11:24 | MM ---
Reason for exam: screening (asymptomatic). Last mammogram was performed 1 year and 1 month ago. History: Family history of breast cancer in maternal grandmother at age 74. Benign excisional biopsy of the left breast, 2017. Took hormonal contraceptives for 1 month. Physical Findings: A clinical breast exam by your physician is recommended on an annual basis and results should be correlated with mammographic findings. MG 3D Screening Mammo W/Cad Bilateral CC and MLO view(s) were taken. Prior study comparison: February 11, 2021, bilateral MG 3d screening mammo w/cad. July 18, 2015, bilateral MG diagnostic mammo w CAD MARIS. The breast tissue is extremely dense which could obscure a lesion on mammography. There is no discrete abnormality. ASSESSMENT: Negative, BI-RAD 1 RECOMMENDATION: Routine screening mammogram of both breasts in 1 year.
== END | disposition home or self-care (01) ==
LOC: RADMAMWWP 14:56
PROVIDERS: ATTEND Family Medicine
DX: Z12.31 Encounter for screening mammogram for malignant neoplasm of breast (principal); Z80.3 Family history of malignant neoplasm of breast
CPT/HCPCS: 77063; 77067

== ENCOUNTER → 2022-03-01 | Outpatient (CLI) | payer BC ==
[2022-03-01 23:02] LABS: African American GFR (CKD) 125.8 (60.0-200.0); Anion Gap 10.6 mmol/L (10.00-18.00); Carbon Dioxide 26.1 mmol/L (20.0-27.5); Non-African American GFR(CKD) 108.5 (60.0-200.0); Potassium 4.9 mmol/L (3.5-5.5)
[2022-03-01 23:20] LABS: Basophils # (A) 0.09 X 10*3/uL (0.00-0.10); Basophils % (A) 1.2 %; Eosinophils # (A) 0.28 X 10*3/uL (0.04-0.35); Eosinophils % (A) 3.9 %; HCT 44.5 % (37.2-46.3); HGB 14.6 g/dL (12.0-15.0); Immature Grans, Automated 0.1 %; Lymphocytes # (A) 2.39 X 10*3/uL (0.90-5.00); Lymphocytes % (A) 32.9 %; MCH 31.4 pg (27.0-32.0); MCHC 32.8 g/dL (32.0-37.0); MCV 95.7 fL (80.0-97.0); Mean Platelet Volume 13.1 fL (9.5-12.2); Monocytes % (A) 8.3 %; NRBC Per 100 WBC 0 /100 WBCS (0.0-0.0); Neutrophils % (A) 53.6 %; Platelet Count 195 X 10*3/uL (140-440); RBC 4.65 X 10*6/uL (4.10-5.20); RDW 12.8 % (11.5-14.5); WBC 7.27 X 10*3/uL (4.50-10.00)
== END | disposition home or self-care (01) ==
LOC: LABPAT 15:14
PROVIDERS: ATTEND Surgery
DX: Z01.812 Encounter for preprocedural laboratory examination (principal); I82.523 Chronic embolism and thrombosis of iliac vein, bilateral
CPT/HCPCS: 36415; 80051; 82565; 84520; 85025

== ENCOUNTER 2022-03-04 09:04 | Day surgery (SDC) | payer BC ==
[2022-03-02 15:35] VITALS: BMI 29.5
[~2022-03-04 09:04] MED LIST changes: -LACTATED RINGERS 1,000 ML IV SCH; -LIDOCAINE 1% (10MG/ML) FOR IV START INTRADERMA PRN; +SODIUM CHLORIDE 0.9% 1,000 ML IV SCH
[2022-03-04] MEDS ORDERED: SODIUM CHLORIDE 0.9% 1,000 ML IV ONE (09:35)
[2022-03-04 09:43] VITALS: RESP 16; TEMP 98.5
[2022-03-04] MEDS ORDERED: fentaNYL (PF) 50 MCG/ML 2 ML AMP ONE (09:54)
[2022-03-04] MEDS ORDERED: MORPHINE SULFATE IR 15 MG TABLET ONE (09:54)
[2022-03-04] MEDS ORDERED: MIDAZOLAM 2 MG/2 ML VIAL ONE (09:54)
[2022-03-04] MEDS ORDERED: HYDROmorphone (PF) 1 MG/ML ONE (09:54)
[2022-03-04] MEDS ORDERED: ONDANSETRON 4 MG/2 ML VIAL ONE (09:54)
[2022-03-04] MEDS ORDERED: PROPOFOL 10 MG/ML 20 ML VIAL IV ONE (09:54)
[2022-03-04] MEDS ORDERED: LIDOCAINE 1% INJ 10MG/ML (30 ML VIAL-PF) SQ ONE (10:06)
[2022-03-04] MEDS ORDERED: IOPAMIDOL-370 100ML BTL INJ ONE (11:20)
--- NOTE | 2022-03-04 11:47 | IR ---
EXAMINATION TYPE: IR stent intravas non coronary DATE OF EXAM: 03/04/2022 CLINICAL HISTORY: Left lower extremity DVT. TECHNIQUE: Fluoroscopy. COMPARISON: None. FINDINGS: Fluoroscopic guidance was provided during intravascular DVT treatment procedure performed by Dr. Cho. A total of 11.4 minutes of fluoroscopic time was utilized during the procedure and 0 s pot images are sent to PACS. IMPRESSION: As Above.
--- NOTE | 2022-03-04 11:52 | P.OP ---
Date of Procedure: 03/04/22 Description of Procedure: Preoperative diagnosis: [Left lower extremity edema, significant previous DVT, likely may Thurner on computed tomography scan] Postoperative diagnosis: Same Procedure: [#1 ultrasound guided left popliteal vein access #2 left lower extremity venogram #3 IVUS left popliteal vein #4 IVUS left femoral vein #5 IVUS left external iliac vein #6 IVUS left common iliac vein #7 IVUS inferior vena cava #8 percutaneous transluminal stent 16 x 150 Abre left common iliac vein #9. She has transluminal balloon angioplasty left external and common iliac vein ] Surgeon: Susan Cho D.O. EBL: [Less than 5 mL] IV fluids: [See records Anesthesia: Monitored anesthesia care] Urine output: [Not measured] Drains: [None] Complications: [None immediately apparent] Condition: [Stable to recovery] Operative indication and findings: [Patient is a 41-year-old female who previously was diagnosed with extensive left lower extremity DVT iliac to popliteal. She had been initiated on antiplatelet urination medication and continued to have swelling therefore discussion was had regarding going forward with possible thrombectomy and intervention. She had a CT venogram which did show likely iliac vein compression. Given these findings we discussed the likelihood of this being may Thurner as the cause for issue. Risks and benefits were discussed. She seemingly understands proceed as such] Procedure in detail: [Patient was taken to the special suite and placed in prone position. The left popliteal fossa was prepped and draped in usual sterile fashion. A procedure timeout was performed, all parties are in agreement. Using ultrasound the left popliteal vein was identified. The skin overlying was anesthetized. Using a micropuncture needle of the vein was accessed and Seldinger technique was used to place an 8-Belarusian sheath. A venogram was performed revealing significant occlusion at the level of the iliac vein. There is no obvious thrombus otherwise. There was significant cross pelvic drainage. Catheters and wires were used to cross the area of occlusion. The eye this catheter was used to confirm luminal gain of the inferior vena cava. Measurements were made. Given the appearance and sizing, a 16 x 1 50 self expanding stent was placed. It was postdilated with a 14 x 40 balloon. Repeat venogram and RUDY were performed revealing marked improvement. The vessel went from completely occluded to a post-stenting area of 130 mm and a diameter of 12-14. Given this satisfactory outcome catheters and wires were removed. The sheath was removed and hemostasis was achieved with manual pressure. A dressing and a compression stocking were placed.] Plan - Discharge Summary Discharge Rx Participant: No New Discharge Prescriptions: New Clopidogrel [Plavix] 75 mg PO DAILY #30 tablet HYDROcodone/APAP 5-325MG [Ewen 5-325] 1 tab PO Q6HR PRN 3 Days #12 tab PRN Reason: Pain No Action Levothyroxine Sodium [Tirosint] 137 mcg PO QAM clonazePAM [KlonoPIN] 0.25 mg PO DAILY PRN PRN Reason: Anxiety Ondansetron [Zofran ODT] 4 mg PO Q8HR PRN PRN Reason: Nausea Apixaban [Eliquis] 5 mg PO BID Doxycycline [Vibramycin] 100 mg PO BID Esomeprazole Magnesium [NexIUM 24Hr] 20 mg PO BID PRN PRN Reason: GERD Famotidine 40 mg PO BID PRN PRN Reason: GERD Discharge Medication List Levothyroxine Sodium [Tirosint] 137 mcg PO QAM 12/24/16 [History] clonazePAM [KlonoPIN] 0.25 mg PO DAILY PRN 05/08/21 [History] Esomeprazole Magnesium [NexIUM 24Hr] 20 mg PO BID PRN 09/01/21 [History] Famotidine 40 mg PO BID PRN 02/02/22 [History] Ondansetron [Zofran ODT] 4 mg PO Q8HR PRN 02/02/22 [History] Apixaban [Eliquis] 5 mg PO BID 03/02/22 [History] Doxycycline [Vibramycin] 100 mg PO BID 03/02/22 [History] Clopidogrel [Plavix] 75 mg PO DAILY #30 tablet 03/04/22 [Rx] HYDROcodone/APAP 5-325MG [Ewen 5-325] 1 tab PO Q6HR PRN 3 Days #12 tab 03/04/22 [Rx] Follow up Appointment(s)/Referral(s): Susan Cho DO [STAFF PHYSICIAN] - 1 Week Activity/Diet/Wound Care/Special Instructions: Resume regular activity as tolerated. No heavy lifting for 2-3 days. Maintain compression stocking for 48 hours. Continue home medications as previously ordered. Continue anticoagulation, may take dose later today. Discharge Disposition: HOME SELF-CARE
[2022-03-04] MEDS ORDERED: HYDROcodone/APAP 5-325MG 1 EACH TAB PO STA (12:30)
[2022-03-04 19:35] VITALS: BP 104/61; PULSE 67
== END 2022-03-04 15:12 | disposition home or self-care (01) ==
LOC: CATHCVL 09:04
PROVIDERS: ATTEND Surgery
DX: I82.402 Acute embolism and thrombosis of unspecified deep veins of left lower extremity (principal); J45.909 Unspecified asthma, uncomplicated; K92.2 Gastrointestinal hemorrhage, unspecified; K21.9 Gastro-esophageal reflux disease without esophagitis; E07.9 Disorder of thyroid, unspecified; Z79.02 Long term (current) use of antithrombotics/antiplatelets; Z79.01 Long term (current) use of anticoagulants
CPT/HCPCS: 37221; 37238; 37252; 37253; 81025; C1894 ×2; C1769 ×5; C1887; C1753; C1725; J2250; J2405; J2001; J3010; J1170; J2704; Q9967

== ENCOUNTER → 2022-07-23 | Outpatient (CLI) | payer BC ==
[2022-07-23 14:31] LABS: Basophils # (A) 0.12 X 10*3/uL (0.00-0.10); Basophils % (A) 1.4 %; Eosinophils # (A) 0.19 X 10*3/uL (0.04-0.35); Eosinophils % (A) 2.2 %; HCT 39.1 % (37.2-46.3); HGB 12.4 g/dL (12.0-15.0); Immature Grans, Automated 0.4 %; Lymphocytes # (A) 2.36 X 10*3/uL (0.90-5.00); Lymphocytes % (A) 27.6 %; MCH 29.7 pg (27.0-32.0); MCHC 31.7 g/dL (32.0-37.0); MCV 93.8 fL (80.0-97.0); Monocytes # (A) 0.53 X 10*3/uL (0.20-1.00); Monocytes % (A) 6.2 %; NRBC Per 100 WBC 0 /100 WBCS (0.0-0.0); Neutrophils # (A) 5.33 X 10*3/uL (1.80-7.70); Neutrophils % (A) 62.2 %; Platelet Count 219 X 10*3/uL (140-440); RBC 4.17 X 10*6/uL (4.10-5.20); RDW 14.3 % (11.5-14.5); WBC 8.56 X 10*3/uL (4.50-10.00)
== END | disposition home or self-care (01) ==
LOC: LABPAT 11:01
PROVIDERS: ATTEND Obstetrics & Gynecology
DX: Z01.812 Encounter for preprocedural laboratory examination (principal); N92.0 Excessive and frequent menstruation with regular cycle
CPT/HCPCS: 85025

== ENCOUNTER 2022-07-27 06:13 | Day surgery (SDC) | payer BC ==
--- NOTE | 2022-07-20 01:54 | HP ---
HISTORY AND PHYSICAL DATE OF SURGERY: On July 27. HISTORY OF PRESENT ILLNESS: This is a 41-year-old female, 2, para 2-0-0-2, who presents with heavy irregular menstrual periods, occurring every 19 to 20 days and lasting 7 days in duration with clots. She is currently using condoms for contraception. She does happen to be on Eliquis and Plavix as well. She is requesting hysteroscopy and NovaSure endometrial ablation. Office endometrial sampling came back within normal limits, no sign of hyperplasia. PAST MEDICAL HISTORY: Significant for blood clots, bronchospasm, bulging disks. 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 PAST SURGICAL HISTORY: Adenoidectomy, blood clot removed, breast biopsy, colposcopy, endometrial biopsy, iliac artery stent placement, LEEP procedure, ossicular reconstruction, subtotal thyroidectomy, and eustachian tubes in the ears. CURRENT MEDICATIONS: 1. Eliquis 2.5 mg tablets twice daily. 2. Klonopin 1 mg daily. 3. Nexium 20 mg 1 hour before meals. 4. Pepcid 20 mg at bedtime. 5. Plavix 75 mg once daily. 6. capsule daily. 7. Tramadol ER 100 mg capsule once daily. ALLERGIES: None known. FAMILY HISTORY: Significant for heart disease, congestive heart failure, hypertension, hypothyroidism, ovarian cancer, diabetes, kidney disease, breast cancer, testicular cancer, thyroid disease, and stroke. OBSTETRIC HISTORY: Significant for normal spontaneous vaginal deliveries x2, healthy female infants. 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 Social alcohol. PHYSICAL EXAMINATION: VITAL SIGNS: The patient is 5 feet 4 inches, 170 pounds, and blood pressure 118/60. HEENT: No thyromegaly, good dentition, trachea midline. CHEST: Clear to auscultation in all white anteriorly and posteriorly. CARDIAC: Regular rate and rhythm with no murmur, click, or rub. BREASTS: Bilaterally symmetric to inspection with no skin dimpling, nipple discharge, axillary adenopathy, or discernible lesions or masses. ABDOMEN: Soft, nontender, no organosplenomegaly, active bowel sounds. No CVA tenderness. EXTERNAL GENITALIA: Normal in appearance, vagina is clean and dry, cervix is multiparous, small and mobile, uterus is anteverted, anteflexed, normal size, shape and mobility, adnexa are negative to palpation bilaterally. RECTAL: Negative with FIT negative stool sampling. The patient is alert and oriented x3. IMPRESSION: Menorrhagia, requesting NovaSure ablation with hysteroscopy. Preoperative clearance per Dr. Flores, as the patient is on blood thinners. PLAN: We will proceed after medical clearance with hysteroscopy, NovaSure ablation. The risks, benefits, and alternatives have all been reviewed including bleeding, infection, perforation or damage to bladder, bowels, ureter, or indeed any pelvic or abdominal organs. The patient is aware that this does not serve as a contraceptive method, and that contraception must be used in addition to this procedure to prevent . All questions answered. MMODL / IJN: [id number] /
[2022-07-23 09:17] VITALS: BMI 29.3
[~2022-07-27 06:13] MED LIST changes: +DEXAMETHASONE SOD PHOSPHATE 4 MG/ML 1 ML VIAL IV ONE; +HYDROmorphone 0.5 MG/0.5 ML SYRINGE IVP PRN; +LACTATED RINGERS 1,000 ML IV SCH; +ONDANSETRON 4 MG/2 ML VIAL IVP ONE; +Pre Op ABX Message 1 EACH MISC MISCELLANE ONE; -SODIUM CHLORIDE 0.9% 1,000 ML IV SCH
[2022-07-27] MEDS ORDERED: KETOROLAC 15 MG/ML 1 ML VIAL ONE (07:28)
[2022-07-27] MEDS ORDERED: LIDOCAINE 2% INJ 20 MG/ML (2 ML VIAL) ONE (07:28)
[2022-07-27] MEDS ORDERED: PROPOFOL 10 MG/ML 20 ML VIAL IV ONE (07:28)
[2022-07-27] MEDS ORDERED: MIDAZOLAM 2 MG/2 ML VIAL ONE (07:28)
[2022-07-27] MEDS ORDERED: fentaNYL (PF) 50 MCG/ML 2 ML AMP ONE (07:28)
[2022-07-27 08:09] VITALS: TEMP 97.3
--- NOTE | 2022-07-27 08:17 | P.OP ---
Date of Procedure: 07/27/22 Preoperative Diagnosis: Menorrhagia Postoperative Diagnosis: Same Procedure(s) Performed: Hysteroscopy, NovaSure endometrial ablation Surgeon: Helena Dodd Estimated Blood Loss (ml): 10 IV fluids (ml): 200 Urine output (ml): 50 Pathology: none sent Condition: stable Disposition: PACU Operative Findings: Essentially normal appearing uterine cavity Description of Procedure: Patient is brought to the operating suite where general anesthetic is administered without difficulty. She's placed in the dorsal lithotomy position. The cervix, vagina, perineal bodies are all prepped and draped in the usual sterile fashion. The appropriate timeout was performed to assure proper patient and procedural identification. Urine hCG is negative. Examination under anesthesia reveals a small anteverted uterus. Bladder is drained for ap proximately 50 mL of clear yellow urine. Weighted speculum was placed into the vagina. Anterior lip of the cervix was grasped with a long Allis clamp. Uterus sounds to a depth of 8.5 cm. Cervix is gently and systematically dilated using Hanks dilators. The hysteroscope was then placed and fluid is infused into the cavity. Cavity is distended. There appears to be a fairly large amount of shaggy tissue, no obvious polyps, fibroids, or defects. Hysteroscope was removed. NovaSure wand is then placed and seated properly. For 50 seconds with a power of 102 W, uterine length 6.0, uterine width 3.1 cm, after enabling the device, the procedure is carried out. When the machine stops, the wand is removed. Hysteroscope was once again placed and the cavity appears to be uniformly blanched. Instrumentation is removed. Cervix is clean and dry. All sponge and instrument counts are correct. Patient is brought back to recovery room in very good condition with stable vital signs including blood pressure 101/60, pulse 54, 92% O2 saturation. Toradol is given prior to leaving the operative suite. Patient will follow-up with me in the office in 2 weeks.
[2022-07-27 08:55] VITALS: RESP 18
[2022-07-27 09:16] VITALS: BP 116/67; PULSE 52
== END 2022-07-27 10:04 | disposition home or self-care (01) ==
LOC: OR 06:13
PROVIDERS: ATTEND Obstetrics & Gynecology
DX: N92.1 Excessive and frequent menstruation with irregular cycle (principal); E34.0 Carcinoid syndrome; F17.210 Nicotine dependence, cigarettes, uncomplicated; R55 Syncope and collapse; E03.9 Hypothyroidism, unspecified; R00.2 Palpitations; K21.9 Gastro-esophageal reflux disease without esophagitis; Z79.891 Long term (current) use of opiate analgesic; Z79.899 Other long term (current) drug therapy
CPT/HCPCS: 58563; 81025; J2250; J1100; J2405; J3010; J1885; J2704; J1170; J2001

== ENCOUNTER → 2022-08-16 | Outpatient (CLI) | payer BC ==
--- NOTE | 2022-08-16 15:45 | US ---
EXAMINATION TYPE: US venous doppler duplex LE LT DATE OF EXAM: 08/16/2022 2:38 PM COMPARISON: NONE CLINICAL HISTORY: I82.5Z9 CHR EMBLSM AND THOMBOS UNSP DEEP VN UNSP D. h/o extensive DVT within left l eg, stenting within iliac veins, no new symptoms, on 2 thinners and need to reassess clots before tyrell pping to one thinner. SIDE PERFORMED: Left TECHNIQUE: The lower extremity deep venous system is examined utilizing real time linear array sonog chilo with graded compression, doppler sonography and color-flow sonography. VESSELS IMAGED: Common Femoral Vein Deep Femoral Vein Greater Saphenous Vein * Femoral Vein Popliteal Vein Small Saphenous Vein * Proximal Calf Veins (* superficial vessels) Left Leg: Negative for acute DVTchronic dvt appearance within left femoral vein, collaterals seen adjacent to [place] vein, no acute findings today. IMPRESSION: 1. No acute deep vein thrombosis of the left lower extremity. 2. 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
== END | disposition home or self-care (01) ==
LOC: RADUSWWP 14:15
PROVIDERS: ATTEND Internal Medicine Hematology & Oncology
DX: I82.5Z2 Chronic embolism and thrombosis of unspecified deep veins of left distal lower extremity (principal)

== ENCOUNTER 2022-08-29 10:47 | Emergency (ER) | payer BC ==
[2022-08-29 11:00] VITALS: TEMP 98.4
[2022-08-29] MEDS ORDERED: KETOROLAC 15 MG/ML 1 ML VIAL IVP STA (11:11)
--- NOTE | 2022-08-29 11:12 | ED ---
Back Pain HPI - General Chief Complaint: Back Pain/Injury Stated Complaint: back injury Time Seen by Provider: 08/29/22 11:03 Source: patient, RN notes reviewed Limitations: no limitations - History of Present Illness Initial Comments: Patient is a 42-year-old female presenting to the emergency room with complaints of severe back pain and inability to bear weight to her left leg and unable to do a straight leg lift with her left leg. She states that approximately 2 weeks ago she had been lifting several water cases and felt pain in her lower back in the next day around that time she had some lower extremity numbness and tingling which has since resolved. 2 days ago she was attempting to get into her vehicle and reports that she suddenly had severe back pain and was unable to complete to get into her jeep. She denies any significant trauma, she does have a history of bulging disc to the lumbar region. Her weakness and immobility is limited to her left lower extremity and due to pain; she has no weakness or range of motion impairment to her right lower extremity, she denies any numbness or tingling, cold sensation, bowel or bladder incontinence or saddle paresthesia. 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 - Related Data Home Medications Medication Instructions Recorded Confirmed Levothyroxine Sodium [Tirosint] 137 mcg PO QAM 12/24/16 07/27/22 clonazePAM [KlonoPIN] 0.25 mg PO DAILY PRN 05/08/21 07/27/22 Esomeprazole Magnesium [NexIUM 20 mg PO BID PRN 09/01/21 07/27/22 24Hr] Famotidine 40 mg PO BID PRN 02/02/22 07/27/22 Ondansetron [Zofran ODT] 4 mg PO Q8HR PRN 02/02/22 07/27/22 Apixaban [Eliquis] 5 mg PO BID 03/02/22 07/27/22 Doxycycline [Vibramycin] 100 mg PO BID 03/02/22 07/27/22 Cholecalciferol [Vitamin D3 (25 125 mcg PO DAILY 07/23/22 07/27/22 Mcg = 1000 Iu)] Propranolol HCl [Propranolol HCl 80 mg PO HS 07/23/22 07/27/22 ER] traMADol HCL 50 mg PO Q6H PRN 07/23/22 07/27/22 Previous Rx's Medication Instructions Recorded Clopidogrel [Plavix] 75 mg PO DAILY #30 tablet 03/04/22 predniSONE [Deltasone] 20 mg PO BID 5 Days #10 tab 08/29/22 Allergies Allergy/AdvReac Type Severity Reaction Status Date / Time garlic AdvReac Diarrhea & Verified 08/29/22 11:00 Heart Burn Review of Systems ROS Statement: Those systems with pertinent positive or pertinent negative responses have been documented in the HPI. ROS Other: All systems not noted in ROS Statement are negative. 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 Hx bulging disc, Shingles. Positive occult blood in stool. Hypothyroid, hyperparathyroid. History of Any Multi-Drug Resistant Organisms: None Reported Past Surgical History: Uterine Ablation Additional Past Surgical History / Comment(s): SUB-THYROIDECTOMY. BMT. Ossular left ear reconstruction w/ prosthesis. [place] teeth. Breast biopsy - benign. C yst in groin area lanced, stent place left iliac Past Anesthesia/Blood Transfusion Reactions: Postoperative Nausea & Vomiting (PONV) Additional Past Anesthesia/Blood Transfusion Reaction / Comment(s): no hx blood transfusion Past Psychological History: Anxiety Smoking Status: Current every day smoker Past Alcohol Use History: Occasional Past Drug Use History: None Reported - Past Family History Father Family Medical History: Deep Vein Thrombosis (DVT), Pulmonary Embolus Sister(s) Family Medical History: Pulmonary Embolus General Exam Limitations: no limitations General appearance: alert, in no apparent distress Head exam: Present: atraumatic, normocephalic, normal inspection Eye exam: Present: normal appearance, PERRL, EOMI. Absent: scleral icterus, conjunctival injection, periorbital swelling ENT exam: Present: normal exam, mucous membranes moist Neck exam: Present: normal inspection. Absent: lymphadenopathy Respiratory exam: Present: normal lung sounds bilaterally. Absent: respiratory distress, wheezes, rales, rhonchi, stridor Cardiovascular Exam: Present: regular rate, normal rhythm, normal heart sounds. Absent: systolic murmur, diastolic murmur, rubs, gallop, clicks GI/Abdominal exam: Present: soft, normal bowel sounds. Absent: distended, tenderness, guarding, rebound, rigid Extremities exam: Absent: pedal edema, joint swelling Left Neurovascular tendon exam: Present: no vascular compromise Gait: observed and limited by pain Back exam: Present: tenderness, muscle spasm. Absent: full ROM Neurological exam: Present: alert, oriented X3, CN II-XII intact Expanded Motor strength exam: RLE: 5, LLE: 4 (Assessment limited by pain) Psychiatric exam: Present: normal affect, normal mood Skin exam: Present: warm, dry, intact, normal color. Absent: rash Course Vital Signs 08/29/22 08/29/22 08/29/22 10:56 12:11 13:26 Temperature 98.4 F Pulse Rate 62 64 54 L Respiratory 18 16 18 Rate Blood Pressure 141/84 120/78 112/74 O2 Sat by Pulse 98 99 98 Oximetry Medical Decision Making - Medical Decision Making 42-year-old female presenting to the emergency room complaints of severe back pain and inability to straighten left leg or bear weight to left le g. Given impairment and lower extremity range of motion/motor strength unable to fully assess if due to myopathy versus pain will obtain CT of the lumbar spine. Prior to computed tomography scan will obtain CBC, BMP and coags. Will start with Toradol for pain and monitor response. Labs without any acute abnormalities. Slight improvement with Toradol still with significant pain will add Norflex and monitor response. Computed tomography scan pending. Mild pain persists after Norflex and Toradol will give dose of morphine and monitor response. Pain persists but improved after dose of morphine. Computed tomography scan shows no acute suspicious lumbar changes and recommends MRI. No myelopathy indicating need for admission. Will discharge home on short course of steroids along with antacid to utilize [id number] daily while taking prednisone. Discussed return parameters regarding radiculopathy and myelopathy along with bleeding risk factors. Case discussed with Dr. Mercedes. - Lab Data Result diagrams: 08/29/22 11:25 08/29/22 11:25 Lab Results 1008/29/22 08/29/22 Range/Units 11:25 11:25 11:25 WBC 8.0 (3.8-10.6) k/uL RBC 4.62 (3.80-5.40) m/uL Hgb 14.0 (11.4-16.0) gm/dL Hct 42.4 (34.0-46.0) % MCV 91.7 (80.0-100.0) fL MCH 30.3 (25.0-35.0) pg MCHC 33.0 (31.0-37.0) g/dL RDW 13.1 (11.5-15.5) % Plt Count 202 (150-450) k/uL MPV 11.0 Neutrophils % 64 % Lymphocytes % 25 % Monocytes % 5 % Eosinophils % 3 % Basophils % 1 % Neutrophils # 5.1 (1.3-7.7) k/uL Lymphocytes # 2.0 (1.0-4.8) k/uL Monocytes # 0.4 (0-1.0) k/uL Eosinophils # 0.2 (0-0.7) k/uL Basophils # 0.1 (0-0.2) k/uL PT 10.0 (9.0-12.0) sec INR 0.9 (<1.2) APTT 22.1 (22.0-30.0) sec Sodium 138 (137-145) mmol/L Potassium 4.7 (3.5-5.1) mmol/L Chloride 105 (98-107) mmol/L Carbon Dioxide 24 (22-30) mmol/L Anion Gap 9 mmol/L BUN 10 (7-17) mg/dL Creatinine 0.66 (0.52-1.04) mg/dL Est GFR (CKD-EPI)AfAm >90 (>60 ml/min/1.73 sqM) Est GFR (CKD-EPI)NonAf >90 (>60 ml/min/1.73 sqM) Glucose 99 (74-99) mg/dL Calcium 9.2 (8.4-10.2) mg/dL - Radiology Data Radiology results: report reviewed, image reviewed Computed tomography scan of the lumbar spine with contrast impression no suspicious acute lumbar spine changes to account for lower back pain. MRI can be performed if clinically indicated. There is loss of disc height at L4-L5 remaining disc heights are preserved. Disposition Clinical Impression: Lumbar radiculopathy Disposition: HOME SELF-CARE Condition: Stable Instructions (If sedation given, give patient instructions): Acute Low Back Pain (ED), Lumbar Radiculopathy (ED), Lower Back Exercises (ED) Additional Instructions: Take prednisone as prescribed please take [id number] Nexium or Protonix daily while taking prednisone. Avoid any other NSAIDs and monitor closely for any signs and symptoms of bleeding and seek immediate medical attention for any bleeding. Avoid bed rest and heavy lifting. Range of motion as tolerated and low back exercises as tolerated encouraged. Please follow-up with your primary care provider. Please return to the Emergency Department if symptoms worsen or any other concerns. Prescriptions: predniSONE [Deltasone] 20 mg PO BID 5 Days #10 tab Is patient prescribed a controlled substance at d/c from ED?: No Referrals: Randa Flores MD [Primary Care Provider] - 1-2 days Time of Disposition: 14:04
[2022-08-29 11:40] LABS: African American GFR (CKD) >90 (>60 ml/min/1.73 sqM); Anion Gap 9 mmol/L; Blood Urea Nitrogen 10 mg/dL (7-17); Calcium 9.2 mg/dL (8.4-10.2); Carbon Dioxide 24 mmol/L (22-30); Chloride 105 mmol/L (98-107); Glucose 99 mg/dL (74-99); Non-African American GFR(CKD) >90 (>60 ml/min/1.73 sqM); Potassium 4.7 mmol/L (3.5-5.1); Sodium 138 mmol/L (137-145)
[2022-08-29 11:44] LABS: INR 0.9 (<1.2); Partial Thromboplastin Time 22.1 sec (22.0-30.0)
[2022-08-29 11:48] LABS: Basophils # (A) 0.1 k/uL (0-0.2); Basophils % (A) 1 %; Eosinophils # (A) 0.2 k/uL (0-0.7); Eosinophils % (A) 3 %; HCT 42.4 % (34.0-46.0); Lymphocytes % (A) 25 %; MCH 30.3 pg (25.0-35.0); MCV 91.7 fL (80.0-100.0); Monocytes # (A) 0.4 k/uL (0-1.0); Monocytes % (A) 5 %; Neutrophils # (A) 5.1 k/uL (1.3-7.7); Neutrophils % (A) 64 %; Platelet Count 202 k/uL (150-450); RBC 4.62 m/uL (3.80-5.40); RDW 13.1 % (11.5-15.5)
[2022-08-29] MEDS ORDERED: ORPHENADRINE 30 MG/ML 2 ML VIAL IVP STA (11:57)
[2022-08-29] MEDS ORDERED: MORPHINE SULFATE 4 MG/ML SYRINGE IVP STA (12:53)
--- NOTE | 2022-08-29 13:12 | CT ---
EXAMINATION TYPE: CT lumbar spine w con DATE OF EXAM: 08/29/2022 COMPARISON: None HISTORY: pain CT DLP: 856.2 mGycm CONTRAST: CT scan of the lumbar is performed with IV Contrast, patient injected with 100 mL of Isovue 300. TECHNIQUE: CT of the lumbar spine is performed on a spiral scan at 3 mm thick sections. Reconstructed images are performed in the coronal and sagittal planes. FINDINGS: Spina bifida occulta is present at S1. No focal disc herniations or significant disc bulges are evident. No spinal canal stenosis or neural foraminal stenosis present. Note is made of aortoiliac stent. There is loss of disc height L4-5. Remaining disc heights are preserved. Vertebral body heights are p reserved. Paraspinal soft tissues appear unremarkable. IMPRESSION: 1. No suspicious acute lumbar spine changes to account for low back pain. MRI can be performed as cli nically indicated.
[2022-08-29 13:27] VITALS: PULSE 54; RESP 18
[2022-08-29 14:23] VITALS: BP 124/77
== END 2022-08-29 14:34 | disposition home or self-care (01) ==
LOC: EC 10:47
DX: M54.16 Radiculopathy, lumbar region (principal); I82.409 Acute embolism and thrombosis of unspecified deep veins of unspecified lower extremity; K21.9 Gastro-esophageal reflux disease without esophagitis; E03.9 Hypothyroidism, unspecified; F41.9 Anxiety disorder, unspecified; F17.200 Nicotine dependence, unspecified, uncomplicated; Z79.890 Hormone replacement therapy; Z79.899 Other long term (current) drug therapy; Z91.018 Allergy to other foods
CPT/HCPCS: 99284; 96374; 96375 ×2; 36415; 80048; 85025; 85610; 85730; 72132; J2270; J2360; J1885; Q9967

== ENCOUNTER 2023-05-13 23:18 | Inpatient (IN) | payer BC, OTHER ==
[2023-05-14] MEDS ORDERED: MORPHINE SULFATE 4 MG/ML SYRINGE IVP STA ×2 (00:05→01:43)
[2023-05-14] MEDS ORDERED: ONDANSETRON 4 MG/2 ML VIAL IVP STA (00:05)
[2023-05-14 00:22] LABS: Basophils % (A) 0 %; Eosinophils # (A) 0.5 k/uL (0-0.7); Eosinophils % (A) 5 %; HCT 40.1 % (34.0-46.0); HGB 13.6 gm/dL (11.4-16.0); Lymphocytes # (A) 2.3 k/uL (1.0-4.8); Lymphocytes % (A) 23 %; MCH 32.6 pg (25.0-35.0); MCHC 33.8 g/dL (31.0-37.0); MCV 96.2 fL (80.0-100.0); Mean Platelet Volume 10.6; Monocytes # (A) 0.4 k/uL (0-1.0); Monocytes % (A) 4 %; Neutrophils # (A) 6.4 k/uL (1.3-7.7); Neutrophils % (A) 66 %; Platelet Count 216 k/uL (150-450); RBC 4.16 m/uL (3.80-5.40); RDW 13.4 % (11.5-15.5); WBC 9.7 k/uL (3.8-10.6)
--- NOTE | 2023-05-14 00:23 | ED ---
SOB HPI - General Chief Complaint: Shortness of Breath Stated Complaint: Chest Pain Time Seen by Provider: 05/13/23 23:37 Source: patient Mode of arrival: ambulatory Limitations: no limitations - History of Present Illness Initial Comments: 42-year-old female past medical history of May Thurner syndrome, to PEs who presents to the emergency department reporting left-sided chest pain. States that she awoke from a nap and started having intense left-sided chest pain. Admits to feeling shortness of breath. She is not currently on any anticoagulation as her vascular surgeon, Dr. Cho has taken her off. She denies any fevers. No chills. No cough. No leg swelling. No other alleviating, precipitating or modifying factors - Related Data Home Medications Medication Instructions Recorded Confirmed Levothyroxine Sodium [Tirosint] 137 mcg PO DAILY 12/24/16 05/14/23 clonazePAM [KlonoPIN] 0.25 - 0.5 mg PO BID PRN 05/08/21 05/14/23 Esomeprazole Magnesium [NexIUM 40 mg PO DAILY 09/01/21 05/14/23 24Hr] Famotidine 40 mg PO BID 02/02/22 05/14/23 Doxycycline [Vibramycin] 100 mg PO DIRECTED PRN 03/02/22 05/14/23 Fluconazole [Diflucan] 150 mg PO DIRECTED PRN 05/14/23 05/14/23 Allergies Allergy/AdvReac Type Severity Reaction Status Date / Time garlic AdvReac Diarrhea & Verified 05/14/23 12:14 Heart Burn Review of Systems ROS Statement: Those systems with pertinent positive or pertinent negative responses have been documented in the HPI. ROS Other: All systems not noted in ROS Statement are negative. 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 Hx bulging disc, Shingles. Positive occult blood in stool. Hypothyroid, hyperparathyroid. History of Any Multi-Drug Resistant Organisms: None Reported Past Surgical History: Uterine Ablation Additional Past Surgical History / Comment(s): SUB-THYROIDECTOMY. BMT. Ossular left ear reconstruction w/ prosthesis. [place] teeth. Breast biopsy - benign. Cyst in groin area lanced, stent place left iliac Past Anesthesia/Blood Transfusion Reactions: Postoperative Nausea & Vomiting (PONV) Additional Past Anesthesia/Blood Transfusion Reaction / Comment(s): no hx blood transfusion Past Psychological History: Anxiety Smoking Status: Current every day smoker Past Alcohol Use History: Occasional Past Drug Use History: None Reported - Past Family History Father Family Medical History: Deep Vein Thrombosis (DVT), Pulmonary Embolus Sister(s) Family Medical History: Pulmonary Embolus General Exam Limitations: no limitations General appearance: alert, in no apparent distress Head exam: Present: atraumatic, normocephalic, normal inspection Eye exam: Present: normal appearance, PERRL, EOMI. Absent: scleral icterus, conjunctival injection, periorbital swelling ENT exam: Present: normal exam, mucous membranes moist Neck exam: Present: normal inspection. Absent: tenderness, meningismus, lympha denopathy Respiratory exam: Present: normal lung sounds bilaterally. Absent: respiratory distress, wheezes, rales, rhonchi, stridor Cardiovascular Exam: Present: normal rhythm, tachycardia, normal heart sounds. Absent: systolic murmur, diastolic murmur, rubs, gallop, clicks GI/Abdominal exam: Present: soft, normal bowel sounds. Absent: distended, tenderness, guarding, rebound, rigid Extremities exam: Present: normal inspection, full ROM, normal capillary refill. Absent: tenderness, pedal edema, joint swelling, calf tenderness Back exam: Present: normal inspection Neurological exam: Present: alert, oriented X3, CN II-XII intact Psychiatric exam: Present: normal affect, normal mood Skin exam: Present: warm, dry, intact, normal color. Absent: rash Course Vital Signs 05/13/23 05/14/23 05/14/23 23:21 04:14 04:22 Temperature 98.1 F Pulse Rate 108 H 70 Respiratory 20 18 18 Rate Blood Pressure 136/88 108/67 O2 Sat by Pulse 98 98 Oximetry 05/14/23 05:20 Temperature Pulse Rate 78 Respiratory 16 Rate Blood Pressure 105/70 O2 Sat by Pulse 96 Oximetry Medical Decision Making - Medical Decision Making Was pt. sent in by a medical professional or institution (GEETHA Buckner, DIRECTOR OF [employer], urgent care, hospital, or care home...) When possible be specific @ -No Did you speak to anyone other than the patient for history (EMS, parent, family, police, friend...)? What history was obtained from this source @ -No Did you review nursing and triage notes (agree or disagree)? Why? @ -I reviewed and agree with nursing and triage notes Were old charts reviewed (outside hosp., previous admission, EMS record, old EKG, old radiological studies, urgent care reports/EKG's, care home records)? Report findings @ -No old charts were reviewed Differential Diagnosis (chest pain, altered mental status, abdominal pain women, abdominal pain men, vaginal bleeding, weakness, fever, dyspnea, syncope, headache, dizziness, GI bleed, back pain, seizure, CVA, palpatations, mental health, musculoskeletal)? @ -Differential Chest Pain: Stable Angina, Unstable Angina, STEMI, NSTEMI Aortic Dissection, Pneumothorax, Musculoskeletal, Esophageal Spasm GERD, Cholecystitis, Pancreatitis, Zoster, this is not meant to be an all-inclusive list. EKG interpreted by me (3pts min.). @ -Yes and demonstrates sinus tachycardia with a rate of 102. MN interval 101. QRS 85. QTC 415. No acute ST segment elevations or depressions X-rays interpreted by me (1pt min.). @ -None done CT interpreted by me (1pt min.). @ -Yes and demonstrates pulmonary infarct U/S interpreted by me (1pt. min.). @ -None done What testing was considered but not performed or refused? (CT, X-rays, U/S, labs)? Why? @ -None What meds were considered but not given or refused? Why? @ -None Did you discuss the management of the patient with other professionals (professionals i.e. GEETHA Buckner, [employer], lab, RT, psych nurse, social media coordinator, chisel worker, teacher, correctional program officer, therapeutic case manager)? Give summary @ -Spoke with Dr. Saucedo Was smoking cessation discussed for >3mins.? @ -No Was critical care preformed (if so, how long)? @ -yes, 38 minutes for heparin gtt Were there social determinants of health that impacted care today? How? (Homeles sness, low income, unemployed, alcoholism, drug addiction, transportation, low edu. Level, literacy, decrease access to med. care, [facility], rehab)? @ -No Was there de-escalation of care discussed even if they declined (Discuss DNR or withdrawal of care, Hospice)? DNR status @ -No What co-morbidities impacted this encounter? (DM, HTN, Smoking, COPD, CAD, Cancer, CVA, ARF, Chemo, Hep., AIDS, mental health diagnosis, sleep apnea, morbid obesity)? @ -May-thurner syndrome, pe/dvt Was patient admitted / discharged? Hospital course, mention meds given and route, prescriptions, significant lab abnormalities, going to OR and other pertinent info. @ -Upon arrival patient was placed into room 2. A thorough history and physical exam was performed. IV is established and laboratory studies were conducted. Twelve-lead EKG was performed. CT of the chest was performed which demonstrates poor infarct an acute PE. Patient started on heparin drip. She'll be admitted to Dr. Saucedo who accepted admission. I will place Dr. Nation on consult as the patient has followed previously with Dr. Cho. There is no signs of heart strain. Patient was agreeable to this plan and she is taken to the floor in stable condition Undiagnosed new problem with uncertain prognosis? @ -No Drug Therapy requiring intensive monitoring for toxicity (Heparin, Nitro, Insulin, Cardizem)? @ -Yes, heparin Were any procedures done? @ -No Diagnosis/symptom? @ -Acute chest pain, acute PE with pulmonary infarct Acute, or Chronic, or Acute on Chronic? @ -Acute Uncomplicated (without systemic symptoms) or Complicated (systemic symptoms)? @ -Complicated Side effects of treatment? @ -Bleeding Exacerbation, Progression, or Severe Exacerbation? @ -No Poses a threat to life or bodily function? How? (Chest pain, [place], DC, pneumonia, PE, COPD, DKA, ARF, appy, cholecystitis, CVA, Diverticulitis, Homicidal, Suicidal, threat to staff... and all critical care pts) @ -Yes, patient has PE - Lab Data Result diagrams: 05/14/23 00:06 05/14/23 00:06 Lab Results 05/14/23 05/14/23 05/14/23 Range/Units 00:06 00:06 00:06 WBC 9.7 (3.8-10.6) k/uL RBC 4.16 (3.80-5.40) m/uL Hgb 13.6 (11.4-16.0) gm/dL Hct 40.1 (34.0-46.0) % MCV 96.2 (80.0-100.0) fL MCH 32.6 (25.0-35.0) pg MCHC 33.8 (31.0-37.0) g/dL RDW 13.4 (11.5-15.5) % Plt Count 216 (150-450) k/uL MPV 10.6 Neutrophils % 66 % Lymphocytes % 23 % Monocytes % 4 % Eosinophils % 5 % Basophils % 0 % Neutrophils # 6.4 (1.3-7.7) k/uL Lymphocytes # 2.3 (1.0-4.8) k/uL Monocytes # 0.4 (0-1.0) k/uL Eosinophils # 0.5 (0-0.7) k/uL Basophils # 0.0 (0-0.2) k/uL PT 9.4 (9.0-12.0) sec INR 0.9 (<1.2) APTT 19.9 L (22.0-30.0) sec Sodium 138 (137-145) mmol/L Potassium 4.0 (3.5-5.1) mmol/L Chloride 109 H (98-107) mmol/L Carbon Dioxide 19 L (22-30) mmol/L Anion Gap 10 mmol/L BUN 11 (7-17) mg/dL Creatinine 0.68 (0.52-1.04) mg/dL Est GFR (CKD-EPI)AfAm >90 (>60 ml/min/1.73 sqM) Est GFR (CKD-EPI)NonAf >90 (>60 ml/min/1.73 sqM) Glucose 135 H (74-99) mg/dL Plasma Lactic Acid Fili (0.7-2.0) mmol/L Calcium 8.9 (8.4-10.2) mg/dL Total Bilirubin 0.3 (0.2-1.3) mg/dL AST 23 (14-36) U/L ALT 23 (4-34) U/L Alkaline Phosphatase 85 (38-126) U/L Troponin I (0.000-0.034) ng/mL NT-Pro-B Natriuret Pep pg/mL Total Protein 6.7 (6.3-8.2) g/dL Albumin 3.7 (3.5-5.0) g/dL 05/14/23 05/14/23 05/14/23 Range/Units 00:06 00:06 00:06 WBC (3.8-10.6) k/uL RBC (3.80-5.40) m/uL Hgb (11.4-16.0) gm/dL Hct (34.0-46.0) % MCV (80.0-100.0) fL MCH (25.0-35.0) pg MCHC (31.0-37.0) g/dL RDW (11.5-15.5) % Plt Count (150-450) k/uL MPV Neutrophils % % Lymphocytes % % Monocytes % % Eosinophils % % Basophils % % Neutrophils # (1.3-7.7) k/uL Lymphocytes # (1.0-4.8) k/uL Monocytes # (0-1.0) k/uL Eosinophils # (0-0.7) k/uL Basophils # (0-0.2) k/uL PT (9.0-12.0) sec INR (<1.2) APTT (22.0-30.0) sec Sodium (137-145) mmol/L Potassium (3.5-5.1) mmol/L Chloride (98-107) mmol/L Carbon Dioxide (22-30) mmol/L Anion Gap mmol/L BUN (7-17) mg/dL Creatinine (0.52-1.04) mg/dL Est GFR (CKD-EPI)AfAm (>60 ml/min/1.73 sqM) Est GFR (CKD-EPI)NonAf (>60 ml/min/1.73 sqM) Glucose (74-99) mg/dL Plasma Lactic Acid Fili 1.4 (0.7-2.0) mmol/L Calcium (8.4-10.2) mg/dL Total Bilirubin (0.2-1.3) mg/dL AST (14-36) U/L ALT (4-34) U/L Alkaline Phosphatase (38-126) U/L Troponin I <0.012 (0.000-0.034) ng/mL NT-Pro-B Natriuret Pep 85 pg/mL Total Protein (6.3-8.2) g/dL Albumin (3.5-5.0) g/dL Disposition Clinical Impression: Chest pain, Pulmonary embolism, Pulmonary infarct Disposition: ADMITTED IP TO THIS HOSP Condition: Serious Is patient prescribed a controlled substance at d/c from ED?: No Time of Disposition: 05:24 Decision to Admit Reason: Admit from EC Decision Date: 05/14/23 Decision Time: 05:24
[2023-05-14 00:44] LABS: ALT 23 U/L (4-34); AST 23 U/L (14-36); African American GFR (CKD) >90 (>60 ml/min/1.73 sqM); Albumin 3.7 g/dL (3.5-5.0); Alkaline Phosphatase 85 U/L (38-126); Anion Gap 10 mmol/L; Blood Urea Nitrogen 11 mg/dL (7-17); Calcium 8.9 mg/dL (8.4-10.2); Carbon Dioxide 19 mmol/L (22-30); Chloride 109 mmol/L (98-107); Glucose 135 mg/dL (74-99); Non-African American GFR(CKD) >90 (>60 ml/min/1.73 sqM); Sodium 138 mmol/L (137-145); Total Bilirubin 0.3 mg/dL (0.2-1.3); Total Protein 6.7 g/dL (6.3-8.2)
[2023-05-14 00:53] LABS: INR 0.9 (<1.2); Partial Thromboplastin Time 19.9 sec (22.0-30.0); Prothrombin Time 9.4 sec (9.0-12.0)
[2023-05-14] MEDS ORDERED: KETOROLAC 15 MG/ML 1 ML VIAL IVP STA (04:15)
--- NOTE | 2023-05-14 04:52 | CT ---
EXAMINATION TYPE: CT chest angio for PE CT DLP: 355 mGycm, Automated exposure control for dose reduction was used. DATE OF EXAM: 05/14/2023 1:38 AM COMPARISON: CT chest 02/03/2023. CLINICAL INDICATION:Female, 42 years old with history of pe; TECHNIQUE/CONTRAST: CTA scan of the thorax is performed with IV Contrast, patient injected with 100 mL of Isovue 370, pul monary embolism protocol. MIP images are created and reviewed these [facility] FINDINGS: Pulmonary Artery: Filling defect within the left lower lobe subsegmental and subsegmental pulmonary a rterial vasculature. No evidence right heart strain. No additional pulmonary emboli definitively visu alized. Lungs/Pleura: Wedge-shaped opacity in the left lower lobe likely representing pulmonary infarct. Left upper lobe few groundglass opacities No evidence of focal consolidation, pleural effusion or pneumot horax. Airway: Large airways are patent. Heart: Heart is within normal limits for size. Vasculature: No evidence of aortic aneurysm. Mediastinum: No gross evidence of adenopathy. Musculoskeletal: No acute osseous abnormalities Soft Tissues: Enhancing nodules in the lower neck near the thyroid gland are unchanged from 22. These are seen bilaterally. Lower neck: No significant findings. Upper Abdomen: No significant findings. IMPRESSION: 1. Left lower lobe pulmonary emboli within the segmental and subsegmental branches. There is wedge-s haped opacity within the left lower lobe thought to represent early pulmonary infarct. No evidence fo r right heart strain. 2. Minimal groundglass opacities in the left upper lobe could represent infectious/inflammatory proc ess.
[2023-05-14] MEDS ORDERED: HEPARIN SODIUM 1,000 UN/ML (10ML VL) IV PRN (04:56)
[2023-05-14] MEDS ORDERED: HEPARIN SODIUM 1,000 UN/ML (10ML VL) IV ONE (04:56)
[2023-05-14] MEDS: HEPARIN SOD,PORK IN 0.45% NACL 25,000 UNIT in 0.45% NACL 1 250ML.BAG IV SCH ×2 (05:18→21:20)
[2023-05-14] MEDS ORDERED: MORPHINE SULFATE 4 MG/ML SYRINGE IV PRN (05:24)
[2023-05-14] MEDS ORDERED: ONDANSETRON 4 MG/2 ML VIAL IVP PRN (05:24)
[2023-05-14] MEDS ORDERED: NALOXONE 0.4 MG/ML 1 ML VIAL IV PRN (05:24)
[2023-05-14] MEDS ORDERED: HYDROmorphone 0.5 MG/0.5 ML SYRINGE IVP PRN (08:45)
--- NOTE | 2023-05-14 09:40 | P.HPIM ---
History of Present Illness H&P Date: 05/14/23 Crys Monterroso, is a 42-year-old female who presented to [facility] emergency room with a chief complaint of chest pain and shortness of breath. She was evaluated in the emergency room vital examination on presentation revealed a temperature of 98.1 pulse 108 respiration 20 blood pressure 136/88 pulse ox 98% on room air Laboratory data revealed a white blood count of 9.7 hemoglobin 13.6 platelet count 216 BUN 11 creatinine 0.68 troponin level 0.012 Testing in the emergency room revealed EKG done in the emergency room revealed sinus tachycardia with short [place] interval CT angiogram of the chest revealed left lower lobe pulmonary embolism within the segmental and subsegmental branches with wedge shaped opacity within the left lower lobe thought to represent pulmonary infarct, no evidence of right heart strain. Patient was started on IV heparin in the emergency room. 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 Cho, after that she was told that it was safe for her to discontinue anticoagulation. Patient has been doing well until recently, she had some minimal pain in her left lower extremity few days ago that she thought was related to playing volleyball, on the day of admission patient started having chest pain and difficulty taking deep breath and she decided to come to emergency room. On review of systems patient is alert and oriented 3 in no apparent distress she is still complaining of chest pain and complaining of shortness of breath and difficulty taking deep breath, otherwise she denies any complaints there is no fever or chills no headache or dizziness no cough no palpitation no nausea or vomiting no abdominal pain no diarrhea no blood in the stools no burning with urination no frequency or urgency and no hematuria. 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 Hx bulging disc, Shingles. Positive occult blood in stool. Hypothyroid, hyperparathyroid. History of Any Multi-Drug Resistant Organisms: None Reported Past Surgical History: Uterine Ablation Additional Past Surgical History / Comment(s): SUB-THYROIDECTOMY. BMT. Ossular left ear reconstruction w/ prosthesis. [place] teeth. Breast biopsy - benign. Cyst in groin area lanced, stent place left iliac Past Anesthesia/Blood Transfusion Reactions: Postoperative Nausea & Vomiting (PONV) Additional Past Anesthesia/Blood Transfusion Reaction / Comment(s): no hx blood transfusion Past Psychological History: Anxiety Smoking Status: Current every day smoker Past Alcohol Use History: Occasional Additional Past Alcohol Use History / Comment(s): STARTED SMOKING AGE 18, SMOKES 1 PPD. Past Drug Use History: None Reported - Past Family History Father Family Medical History: Deep Vein Thrombosis (DVT), Pulmonary Embolus Sister(s) Family Medical History: Pulmonary Embolus Medications and Allergies Home Medications Medication Instructions Recorded Confirmed Type RX: Levothyroxine Sodium [Tirosint] 137 mcg PO QAM 12/24/16 07/27/22 History RX: clonazePAM [KlonoPIN] 0.25 mg PO DAILY PRN 05/08/21 07/27/22 History RX: Esomeprazole Magnesium [NexIUM 20 mg PO BID PRN 09/01/21 07/27/22 History 24Hr] RX: Famotidine 40 mg PO BID PRN 02/02/22 07/27/22 History RX: Ondansetron [Zofran ODT] 4 mg PO Q8HR PRN 02/02/22 07/27/22 History Apixaban [Eliquis] 5 mg PO BID 03/02/22 07/27/22 History Doxycycline [Vibramycin] 100 mg PO BID 03/02/22 07/27/22 History Clopidogrel [Plavix] 75 mg PO DAILY #30 tablet 03/04/22 07/23/22 Rx Cholecalciferol [Vitamin D3 (25 125 mcg PO DAILY 07/23/22 07/27/22 History Mcg = 1000 Iu)] Propranolol HCl [Propranolol HCl 80 mg PO HS 07/23/22 07/27/22 History ER] RX: traMADol HCL 50 mg PO Q6H PRN 07/23/22 07/27/22 History RX: predniSONE [Deltasone] 20 mg PO BID 5 Days #10 tab 08/29/22 Rx Allergies Allergy/AdvReac Type Severity Reaction Status Date / Time garlic AdvReac Diarrhea & Verified 05/13/23 23:24 Heart Burn Physical Exam Vitals: Vital Signs Temp Pulse Pulse Resp BP BP Pulse Ox 05/14/23 06:05 97.3 F L 73 20 117/78 98 05/14/23 05:20 78 16 105/70 96 05/14/23 04:22 70 18 108/67 98 05/14/23 04:14 18 05/13/23 23:21 98.1 F 108 H 20 136/88 98 Intake and Output 05/13/23 05/14/23 05/14/23 22:59 06:59 14:59 Other: Weight 82.554 kg In general patient is alert and oriented x 3 in no distress HEENT head normocephalic and atraumatic Neck is supple no JVD no goiter no lymphadenopathy no carotid bruit Chest examination is clear to auscultation no crackles no wheezing Cardiac exam reveals regular heart sounds S1 and S2 no gallops no murmurs Abdomen is soft nontender no organomegaly with normal bowel sounds Extremity exam reveals no edema no cyanosis or clubbing Neurological examination reveals no gross focal deficits Results CBC & Chem 7: 05/14/23 00:06 05/14/23 00:06 Labs: Abnormal Lab Results - Last 24 Hours (Table) 05/14/23 05/14/23 05/14/23 Range/Units 00:06 00:06 06:10 APTT 19.9 L 68.6 H (22.0-30.0) sec Chloride 109 H (98-107) mmol/L Carbon Dioxide 19 L (22-30) mmol/L Glucose 135 H (74-99) mg/dL Thrombosis Risk Factor Assmnt - Choose All That Apply Any of the Below Risk Factors Present?: Yes Each Factor Represents 1 point: Age 41-60 years, Medical pt on bed rest, Obesity (BMI >25) Other Risk Factors: Yes Each Risk Factor Represents 3 Points: Family history of DVT/PE, History of DVT/PE Thrombosis Risk Factor Assessment Total Risk Factor Score: 9 Thrombosis Risk Factor Assessment Level: High Risk Assessment and Plan Plan: Pulmonary embolism with evidence of pulmonary infarct Acute chest pain and shortness of breath related to above Underlying history of May-Thurner syndrome with compression of the left iliac vein, status post stent placement by Dr. Cho in February 2022 Previous history of DVT in the left lower extremity Underlying history of hypothyroidism Underlying history of anxiety disorder Underlying history of gastroesophageal reflux disease Previous history of menorrhagia status post hysteroscopy and endometrial ablation by Dr. Liliam lópez in July 2022 At this time patient is admitted to telemetry floor She was started on IV heparin in the emergency room Consultation for vascular surgery and hematology were initiated Will follow closely
[2023-05-14] MEDS: HYDROmorphone 0.5 MG/0.5 ML SYRINGE IVP PRN ×4 (12:10→21:20)
--- NOTE | 2023-05-14 14:45 | P.GSCN ---
History of Present Illness Consult date: 05/14/23 Reason for Consult: PE, history of Februaryer History of present illness: 42-year-old female with history of May-Thurner syndrome, previous DVT, thrombectomy and iliac stenting presented to [facility] emergency room with chest pain and shortness of breath. She states playing volleyball a few days ago and had a twinge in her left thigh but didn't think it was anything and then she developed chest pain and shortness of breath. She was evaluated in the emergency room and was worked up and CT angiogram demonstrated PE on the left lower lobe without heart strain. She states having chest pain with deep breathing but otherwise feels good. She states previously having a DVT and was being treated with oral anticoagulation but ultimately lost her insurance this past year and stopped her anticoagulation in February. Currently she denies any fevers, chills or lower extremity pain. Review of Systems All systems: negative (What is mentioned in HPI or past medical history) Past Medical History Past Medical History: Deep Vein Thrombosis (DVT), GERD/Reflux, GI Bleed, Thyroid Disorder Additional Past Medical History / Comment(s): had DVT left calf to groin- hx May Thurner's Syndrome, following with Cardiology for palpitations, Colitis, Groin cyst lanced 06/04/21-tx w/ Levaquin 06/10/21 and Bactrim 06/12/21. Hx bulging disc, Shingles. Positive occult blood in stool. Hypothyroid, hyperparathyroid. History of Any Multi-Drug Resistant Organisms: None Reported Past Surgical History: Uterine Ablation Additional Past Surgical History / Comment(s): SUB-THYROIDECTOMY. BMT. Ossular left ear reconstruction w/ prosthesis. [place] teeth. Breast biopsy - benign. Cyst in groin area lanced, stent place left iliac Past Anesthesia/Blood Transfusion Reactions: Postoperative Nausea & Vomiting (PONV) Additional Past Anesthesia/Blood Transfusion Reaction / Comm: no hx blood transfusion Past Psychological History: Anxiety Smoking Status: Current every day smoker Past Alcohol Use History: Occasional Additional Past Alcohol Use History / Comment(s): STARTED SMOKING AGE 18, SMOKES 1 PPD. Past Drug Use History: None Reported - Past Family History Father Family Medical History: Deep Vein Thrombosis (DVT), Pulmonary Embolus Sister(s) Family Medical History: Pulmonary Embolus Medications and Allergies Home Medications Medication Instructions Recorded Confirmed Type Levothyroxine Sodium [Tirosint] 137 mcg PO DAILY 12/24/16 05/14/23 History clonazePAM [KlonoPIN] 0.25 - 0.5 mg PO BID PRN 05/08/21 05/14/23 History Esomeprazole Magnesium [NexIUM 40 mg PO DAILY 09/01/21 05/14/23 History 24Hr] Famotidine 40 mg PO BID 02/02/22 05/14/23 History Doxycycline [Vibramycin] 100 mg PO DIRECTED PRN 03/02/22 05/14/23 History Fluconazole [Diflucan] 150 mg PO DIRECTED PRN 05/14/23 05/14/23 History Allergies Allergy/AdvReac Type Severity Reaction Status Date / Time garlic AdvReac Diarrhea & Verified 05/14/23 12:14 Heart Burn Surgical - Exam Vital Signs Temp Pulse Resp BP Pulse Ox 98.1 F 108 H 20 136/88 98 05/13/23 23:21 05/13/23 23:21 05/13/23 23:21 05/13/23 23:21 05/13/23 23:21 - General well developed, well nourished, no distress - Eyes PERRL, normal ocular movement - ENT normal pinna, normal nares - Neck no masses - Respiratory poor expansion secondary to pain clear to auscultation - Cardiovascular Rhythm: regular - Abdomen Abdomen: soft, non tender - Integumentary no growths - Neurologic normal coordination, normal sensation - Psychiatric oriented to time, oriented to person, oriented to place, speech is normal Minimal edema left lower extremity. Palpable DP and PT pulses bilaterally Results - Labs 05/14/23 00:06 05/14/23 00:06 Abnormal Lab Results - Last 24 Hours (Table) 05/14/23 05/14/23 05/14/23 Range/Units 00:06 00:06 06:10 APTT 19.9 L 68.6 H (22.0-30.0) sec Chloride 109 H (98-107) mmol/L Carbon Dioxide 19 L (22-30) mmol/L Glucose 135 H (74-99) mg/dL Diabetes panel 05/14/23 Range/Units 00:06 Sodium 138 (137-145) mmol/L Potassium 4.0 (3.5-5.1) mmol/L Chloride 109 H (98-107) mmol/L Carbon Dioxide 19 L (22-30) mmol/L BUN 11 (7-17) mg/dL Creatinine 0.68 (0.52-1.04) mg/dL Glucose 135 H (74-99) mg/dL Calcium 8.9 (8.4-10.2) mg/dL AST 23 (14-36) U/L ALT 23 (4-34) U/L Alkaline Phosphatase 85 (38-126) U/L Total Protein 6.7 (6.3-8.2) g/dL Albumin 3.7 (3.5-5.0) g/dL Calcium panel 05/14/23 Range/Units 00:06 Calcium 8.9 (8.4-10.2) mg/dL Albumin 3.7 (3.5-5.0) g/dL Pituitary panel 05/14/23 Range/Units 00:06 Sodium 138 (137-145) mmol/L Potassium 4.0 (3.5-5.1) mmol/L Chloride 109 H (98-107) mmol/L Carbon Dioxide 19 L (22-30) mmol/L BUN 11 (7-17) mg/dL Creatinine 0.68 (0.52-1.04) mg/dL Glucose 135 H (74-99) mg/dL Calcium 8.9 (8.4-10.2) mg/dL Adrenal panel 05/14/23 Range/Units 00:06 Sodium 138 (137-145) mmol/L Potassium 4.0 (3.5-5.1) mmol/L Chloride 109 H (98-107) mmol/L Carbon Dioxide 19 L (22-30) mmol/L BUN 11 (7-17) mg/dL Creatinine 0.68 (0.52-1.04) mg/dL Glucose 135 H (74-99) mg/dL Calcium 8.9 (8.4-10.2) mg/dL Total Bilirubin 0.3 (0.2-1.3) mg/dL AST 23 (14-36) U/L ALT 23 (4-34) U/L Alkaline Phosphatase 85 (38-126) U/L Total Protein 6.7 (6.3-8.2) g/dL Albumin 3.7 (3.5-5.0) g/dL Assessment and Plan Assessment: Acute pulmonary embolism without right heart strain Acute chest pain and shortness of breath secondary to above History of May-Thurner Syndrome History of left lower extremity DVT with previous thrombectomy and iliac stenting Plan: Agree with anticoagulation at this time. Would recommend transition to oral anticoagulation and continuing for 6 months at least. Agree with hematology evaluation. No surgical intervention indicated at this time due to no evidence of heart strain. Thank you for this consultation.
[2023-05-14] MEDS: ALPRAZolam 0.25 MG TAB PO PRN (19:57)
[2023-05-15] MEDS: MORPHINE SULFATE 4 MG/ML SYRINGE IVP PRN ×5 (04:03→21:16)
[2023-05-15 07:39] LABS: Basophils % (A) 0 %; Eosinophils # (A) 0.2 k/uL (0-0.7); Eosinophils % (A) 3 %; HCT 35.1 % (34.0-46.0); HGB 11.2 gm/dL (11.4-16.0); Lymphocytes # (A) 2.1 k/uL (1.0-4.8); Lymphocytes % (A) 35 %; MCH 30.8 pg (25.0-35.0); MCHC 31.9 g/dL (31.0-37.0); MCV 96.7 fL (80.0-100.0); Mean Platelet Volume 10.1; Monocytes # (A) 0.3 k/uL (0-1.0); Monocytes % (A) 5 %; Neutrophils # (A) 3.3 k/uL (1.3-7.7); Neutrophils % (A) 56 %; Platelet Count 154 k/uL (150-450); RBC 3.64 m/uL (3.80-5.40); RDW 13.5 % (11.5-15.5); WBC 5.9 k/uL (3.8-10.6)
[2023-05-15 07:54] LABS: African American GFR (CKD) >90 (>60 ml/min/1.73 sqM); Anion Gap 3 mmol/L; Blood Urea Nitrogen 7 mg/dL (7-17); Calcium 7.9 mg/dL (8.4-10.2); Carbon Dioxide 25 mmol/L (22-30); Chloride 107 mmol/L (98-107); Glucose 97 mg/dL (74-99); Non-African American GFR(CKD) >90 (>60 ml/min/1.73 sqM); Potassium 4.1 mmol/L (3.5-5.1); Sodium 135 mmol/L (137-145)
[2023-05-15] MEDS: ALPRAZolam 0.25 MG TAB PO PRN ×2 (08:41→22:24)
[2023-05-15] MEDS: ACETAMINOPHEN TAB 325 MG TAB PO PRN ×3 (09:07→20:39)
--- NOTE | 2023-05-15 10:10 | P.PN ---
Subjective Progress Note Date: 05/15/23 Crys Monterroso, is a 42-year-old female who presented to [facility] emergency room with a chief complaint of chest pain and shortness of breath. She was evaluated in the emergency room vital examination on presentation revealed a temperature of 98.1 pulse 108 respiration 20 blood pressure 136/88 pulse ox 98% on room air Laboratory data revealed a white blood count of 9.7 hemoglobin 13.6 platelet count 216 BUN 11 creatinine 0.68 troponin level 0.012 Testing in the emergency room revealed EKG done in the emergency room revealed sinus tachycardia with short [place] interval CT angiogram of the chest revealed left lower lobe pulmonary embolism within the segmental and subsegmental branches with wedge shaped opacity within the left lower lobe thought to represent pulmonary infarct, no evidence of right heart strain. Patient was started on IV heparin in the emergency room. 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 Cho, after that she was told that it was safe for her to discontinue anticoagulation. Patient has been doing well until recently, she had some minimal pain in her left lower extremity few days ago that she thought was related to playing volleyball, on the day of admission patient started having chest pain and difficulty taking deep breath and she decided to come to emergency room. On review of systems patient is alert and oriented 3 in no apparent distress she is still complaining of chest pain and complaining of shortness of breath and difficulty taking deep breath, otherwise she denies any complaints there is no fever or chills no headache or dizziness no cough no palpitation no nausea or vomiting no abdominal pain no diarrhea no blood in the stools no burning with urination no frequency or urgency and no hematuria. On 05/15/2023 patient is alert and oriented 3. Patient remains on heparin drip. Patient reports improvement with shortness of breath chest pain. Awaiting hematology input. Patient was evaluated by vascular surgery no surgical intervention indicated at this time. Current vital signs temp 98.4, heart rate 73, respiratory rate 22, blood pressure 118/84 and pulse ox 96% Objective - Vital Signs Vital signs: Vital Signs Temp 98.3 F 05/15/23 08:00 Pulse 56 L 05/15/23 08:00 Resp 16 05/15/23 08:00 BP 114/72 05/15/23 08:00 Pulse Ox 97 05/15/23 08:00 FiO2 Intake & Output 05/14/23 05/15/23 05/15/23 18:59 06:59 18:59 Intake Total 240 238.255 0 Balance 240 238.255 0 Intake: Intake, IV Titration 238.255 Amount Heparin Sod,Pork in 0.45% 238.255 NaCl 25,000 unit In 0.45 % NaCl 1 250ml.bag @ 18 UNITS/KG/HR 14.86 mls/hr IV .[id number] [facility] Rx#: [id number] Oral 240 0 Other: Voiding Method Toilet Toilet # Voids 1 - Exam In general patient is alert and oriented x 3 in no distress HEENT head normocephalic and atraumatic Neck is supple no JVD no goiter no lymphadenopathy no carotid bruit Chest examination is clear to auscultation no crackles no wheezing Cardiac exam reveals regular heart sounds S1 and S2 no gallops no murmurs Abdomen is soft nontender no organomegaly with normal bowel sounds Extremity exam reveals no edema no cyanosis or clubbing Neurological examination reveals no gross focal deficits - Labs CBC & Chem 7: 05/15/23 07:10 05/15/23 07:10 Labs: Abnormal Lab Results - Last 24 Hours (Table) 05/15/23 05/15/23 05/15/23 Range/Units 07:10 07:10 07:10 RBC 3.64 L (3.80-5.40) m/uL Hgb 11.2 L (11.4-16.0) gm/dL APTT 46.0 H (22.0-30.0) sec Sodium 135 L (137-145) mmol/L Calcium 7.9 L (8.4-10.2) mg/dL Assessment and Plan Plan: Pulmonary embolism with evidence of pulmonary infarct Acute chest pain and shortness of breath related to above Underlying history of May-Thurner syndrome with compression of the left iliac vein, status post stent placement by Dr. Cho in February 2022 Previous history of DVT in the left lower extremity Underlying history of hypothyroidism Underlying history of anxiety disorder Underlying history of gastroesophageal reflux disease Previous history of menorrhagia status post hysteroscopy and endometrial ablation by Dr. Liliam lópez in July 2022 At this time patient is admitted to telemetry floor She was started on IV heparin in the emergency room Consultation for vascular surgery and hematology were initiated Will follow closely
[2023-05-15] MEDS: HEPARIN SOD,PORK IN 0.45% NACL 25,000 UNIT in 0.45% NACL 1 250ML.BAG IV SCH (12:16)
[2023-05-15] MEDS: DOCUSATE 100 MG CAP PO SCH (20:35)
[2023-05-16] MEDS: HEPARIN SOD,PORK IN 0.45% NACL 25,000 UNIT in 0.45% NACL 1 250ML.BAG IV SCH ×2 (03:48→19:42)
[2023-05-16] MEDS: MORPHINE SULFATE 4 MG/ML SYRINGE IVP PRN ×2 (06:36→12:02)
[2023-05-16] MEDS: DOCUSATE 100 MG CAP PO SCH ×2 (08:17→19:42)
[2023-05-16] MEDS: ALPRAZolam 0.25 MG TAB PO PRN ×2 (08:35→22:40)
[2023-05-16 08:43] LABS: Basophils % (A) 0 %; Eosinophils # (A) 0.2 k/uL (0-0.7); Eosinophils % (A) 4 %; HCT 35.9 % (34.0-46.0); HGB 11.4 gm/dL (11.4-16.0); Lymphocytes # (A) 1.6 k/uL (1.0-4.8); Lymphocytes % (A) 26 %; MCH 31.5 pg (25.0-35.0); MCHC 31.6 g/dL (31.0-37.0); MCV 99.5 fL (80.0-100.0); Mean Platelet Volume 11.8; Monocytes # (A) 0.3 k/uL (0-1.0); Monocytes % (A) 5 %; Neutrophils # (A) 3.9 k/uL (1.3-7.7); Neutrophils % (A) 64 %; Platelet Count 148 k/uL (150-450); RBC 3.61 m/uL (3.80-5.40); RDW 13.4 % (11.5-15.5); WBC 6.1 k/uL (3.8-10.6)
[2023-05-16 09:01] LABS: ALT 22 U/L (4-34); AST 23 U/L (14-36); African American GFR (CKD) >90 (>60 ml/min/1.73 sqM); Albumin 2.9 g/dL (3.5-5.0); Alkaline Phosphatase 80 U/L (38-126); Anion Gap 7 mmol/L; Blood Urea Nitrogen 7 mg/dL (7-17); Calcium 8.2 mg/dL (8.4-10.2); Carbon Dioxide 22 mmol/L (22-30); Chloride 107 mmol/L (98-107); Glucose 143 mg/dL (74-99); Non-African American GFR(CKD) >90 (>60 ml/min/1.73 sqM); Potassium 4.1 mmol/L (3.5-5.1); Sodium 136 mmol/L (137-145); Total Bilirubin 0.2 mg/dL (0.2-1.3); Total Protein 5.6 g/dL (6.3-8.2)
--- NOTE | 2023-05-16 15:44 | P.PN ---
Subjective Progress Note Date: 05/16/23 Crys Monterroso, is a 42-year-old female who presented to [facility] emergency room with a chief complaint of chest pain and shortness of breath. She was evaluated in the emergency room vital examination on presentation revealed a temperature of 98.1 pulse 108 respiration 20 blood pressure 136/88 pulse ox 98% on room air Laboratory data revealed a white blood count of 9.7 hemoglobin 13.6 platelet count 216 BUN 11 creatinine 0.68 troponin level 0.012 Testing in the emergency room revealed EKG done in the emergency room revealed sinus tachycardia with short [place] interval CT angiogram of the chest revealed left lower lobe pulmonary embolism within the segmental and subsegmental branches with wedge shaped opacity within the left lower lobe thought to represent pulmonary infarct, no evidence of right heart strain. Patient was started on IV heparin in the emergency room. 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 Cho, after that she was told that it was safe for her to discontinue anticoagulation. Patient has been doing well until recently, she had some minimal pain in her left lower extremity few days ago that she thought was related to playing volleyball, on the day of admission patient started having chest pain and difficulty taking deep breath and she decided to come to emergency room. On review of systems patient is alert and oriented 3 in no apparent distress she is still complaining of chest pain and complaining of shortness of breath and difficulty taking deep breath, otherwise she denies any complaints there is no fever or chills no headache or dizziness no cough no palpitation no nausea or vomiting no abdominal pain no diarrhea no blood in the stools no burning with urination no frequency or urgency and no hematuria. On 05/15/2023 patient is alert and oriented 3. Patient remains on heparin drip. Patient reports improvement with shortness of breath chest pain. Awaiting hematology input. Patient was evaluated by vascular surgery no surgical intervention indicated at this time. Current vital signs temp 98.4, heart rate 73, respiratory rate 22, blood pressure 118/84 and pulse ox 96% On 05/16/2023 patient was seen and examined on the telemetry floor she is alert and oriented 3 in no apparent distress she reports some improvement in her shortness of breath and chest pain with deep inspiration otherwise she denies any complaints there is no fever or chills no headache or dizziness no palpitation no nausea or vomiting no abdominal pain no diarrhea and no urinary symptoms. Vascular surgery recommendation review. Possible transfer to oral anticoagulation in 1-2 days. We will continue to follow closely Objective - Vital Signs Vital signs: Vital Signs Temp 98.2 F 05/16/23 12:00 Pulse 57 L 05/16/23 12:00 Resp 18 05/16/23 12:00 BP 127/79 05/16/23 12:00 Pulse Ox 98 05/16/23 12:00 FiO2 Intake & Output 05/15/23 05/16/23 05/16/23 18:59 06:59 18:59 Intake Total 701.909 230.825 121.852 Balance 701.909 230.825 121.852 Intake: Intake, IV Titration 221.909 230.825 121.852 Amount Heparin Sod,Pork in 0.45% 221.909 230.825 121.852 NaCl 25,000 unit In 0.45 % NaCl 1 250ml.bag @ 18 UNITS/KG/HR 14.86 mls/hr IV .[id number] [facility] Rx#: [id number] Oral 480 Other: Voiding Method Toilet Toilet Toilet # Voids 2 2 - Exam In general patient is alert and oriented x 3 in no distress HEENT head normocephalic and atraumatic Neck is supple no JVD no goiter no lymphadenopathy no carotid bruit Chest examination is clear to auscultation no crackles no wheezing Cardiac exam reveals regular heart sounds S1 and S2 no gallops no murmurs Abdomen is soft nontender no organomegaly with normal bowel sounds Extremity exam reveals no edema no cyanosis or clubbing Neurological examination reveals no gross focal deficits - Labs CBC & Chem 7: 05/16/23 08:04 05/16/23 08:04 Labs: Abnormal Lab Results - Last 24 Hours (Table) 05/16/23 05/16/23 05/16/23 Range/Units 08:04 08:04 10:26 RBC 3.61 L (3.80-5.40) m/uL Plt Count 148 L (150-450) k/uL APTT 50.0 H (22.0-30.0) sec Sodium 136 L (137-145) mmol/L Glucose 143 H (74-99) mg/dL Calcium 8.2 L (8.4-10.2) mg/dL Total Protein 5.6 L (6.3-8.2) g/dL Albumin 2.9 L (3.5-5.0) g/dL Assessment and Plan Plan: Pulmonary embolism with evidence of pulmonary infarct Acute chest pain and shortness of breath related to above Underlying history of May-Thurner syndrome with compression of the left iliac vein, status post stent placement by Dr. Cho in February 2022 Previous history of DVT in the left lower extremity Underlying history of hypothyroidism Underlying history of anxiety disorder Underlying history of gastroesophageal reflux disease Previous history of menorrhagia status post hysteroscopy and endometrial ablation by Dr. Liliam lópez in July 2022 At this time patient is admitted to telemetry floor She was started on IV heparin in the emergency room Consultation for vascular surgery and hematology were initiated Will follow closely
--- NOTE | 2023-05-16 15:48 | US ---
EXAMINATION TYPE: US venous doppler duplex LE BI DATE OF EXAM: 05/16/2023 3:18 PM COMPARISON: US CLINICAL INDICATION: Female, 42 years old with history of hx of DVT/PE; PE, history of DVT, pt admitt ed and put on blood thinners SIDE PERFORMED: Bilateral TECHNIQUE: The lower extremity deep venous system is examined utilizing real time linear array sonog chilo with graded compression, doppler sonography and color-flow sonography. VESSELS IMAGED: Common Femoral Vein Deep Femoral Vein Greater Saphenous Vein * Femoral Vein Popliteal Vein Small Saphenous Vein * Proximal Calf Veins (* superficial vessels) Right Leg: Negative for DVT Left Leg: Negative for acute DVT, probable chronic thrombus within left mid and distal femoral vein with duplicate vein at those levels IMPRESSION: 1. No evidence for acute DVT. Probable chronic thrombus as noted.
[2023-05-16] MEDS: ACETAMINOPHEN TAB 325 MG TAB PO PRN (16:01)
[2023-05-16] MEDS ORDERED: HYDROcodone/APAP 10-325MG 1 EACH TAB PO PRN (16:08)
--- NOTE | 2023-05-16 18:15 | P.CONS ---
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 She was initially seen in consult on 02/03/22. The patient had presented with progressive pain, and swelling in the left lower extremity. She stated that she had been diagnosed with a ruptured Betts cyst versus a gastrocnemius tear on MRI which initially developed some pain and swelling behind the knee. However despite treatment, the symptoms progressed. Dopplers revealed extensive DVT extending from the external iliac down into the calf veins. She also had a history of right lower extremity DVT diagnosed in 09/20 after foot injury. The patient was anticoagulation with eliquis for 3 months. Of note the patient had been placed on oral contraceptives for prevention in 04/20. She had been taking it at the time of her first clot, and continued taking it until seen by us in 02/19. At that time based on our discussion, she discontinued it. Repeat Dopplers on the right in 12/22 had shown resolution of her DVT in that leg. The patient underwent thrombectomy due to persistent significant swelling and pain. She was found to have May Thurner syndrome and had an left iliac stent placed with Dr. Cho in February 2022. She was discharged on eliquis, and Plavix and aspirin. She was on plavix for 6 months, stopping in 09/21 and Eliquis for 1 ye ar stopping in 03/22. Both of the patient's events appear to be provoked is therefore limited duration of anticoagulation of 6 months was recommended. It was felt that the finding of clot below the knee most likely represented residual thrombus and therefore continuation of her regimen was recommended until the patient had a follow-up ultrasound with vascular surgery in the short- term. She also had a hypercoagulable workup done, that was negative. 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 After completion of double antiplatelet therapy, the patient was advised to stay on baby aspirin on an indefinite basis, as this has been shown to reduce risk of recurrence. Patient presented to the emergency room for chest pain and shortness of breath that developed Sharan night causing patient to present to the emergency room for further evaluation. Patient also reports last week she had developed left lower extremity pain but attributed to playing volleyball. She reports that she noticed mild swelling to left lower extremity. CTA chest revealed left lower lobe pulmonary emboli within the segmental and subsegmental branches. There is a wedge shaped opacity within the left lower lobe thought to represent early pulmonary infarct. No evidence for right heart strain. Minimal groundglass opacities in the left upper lobe could represent infectious versus inflammatory process. Patient started on IV heparin. Vascular surgery consulted. Patient states she has not take taken control since 01/2022. Denies any recent injury or prolonged immobilization. Denies recent surgical history. Denies [facility] travel. Denies hormonal replacements. Patient afebrile. SPO2 95% on room air. WBC 6.1, hemoglobin 11.4, platelets 140,000. Review of Systems 10 point ROS is negative except as stated in the HPI Past Medical History Past Medical History: Deep Vein Thrombosis (DVT), GERD/Reflux, GI Bleed, Thyroid Disorder Additional Past Medical History / Comment(s): had DVT left calf to groin- hx May Thurner's Syndrome, following with Cardiology for palpitations, Colitis, Groin cyst lanced 06/04/21-tx w/ Levaquin 06/10/21 and Bactrim 06/12/21. Hx bulging disc, Shingles. Positive occult blood in stool. Hypothyroid, hyperparathyroid. History of Any Multi-Drug Resistant Organisms: None Reported Past Surgical History: Uterine Ablation Additional Past Surgical History / Comment(s): SUB-THYROIDECTOMY. BMT. Ossular left ear reconstruction w/ prosthesis. [place] teeth. Breast biopsy - benign. Cyst in groin area lanced, stent place left iliac Past Anesthesia/Blood Transfusion Reactions: Postoperative Nausea & Vomiting (PONV) Additional Past Anesthesia/Blood Transfusion Reaction / Comm: no hx blood transfusion Past Psychological History: Anxiety Smoking Status: Current every day smoker Past Alcohol Use History: Occasional Past Drug Use History: None Reported - Past Family History Father Family Medical History: Deep Vein Thrombosis (DVT), Pulmonary Embolus Sister(s) Family Medical History: Pulmonary Embolus Medications and Allergies Home Medications Medication Instructions Recorded Confirmed Type Levothyroxine Sodium [Tirosint] 137 mcg PO DAILY 12/24/16 05/14/23 History clonazePAM [KlonoPIN] 0.25 - 0.5 mg PO BID PRN 05/08/21 05/14/23 History Esomeprazole Magnesium [NexIUM 40 mg PO DAILY 09/01/21 05/14/23 History 24Hr] Famotidine 40 mg PO BID 02/02/22 05/14/23 History Doxycycline [Vibramycin] 100 mg PO DIRECTED PRN 03/02/22 05/14/23 History Fluconazole [Diflucan] 150 mg PO DIRECTED PRN 05/14/23 05/14/23 History Allergies Allergy/AdvReac Type Severity Reaction Status Date / Time garlic AdvReac Diarrhea & Verified 05/14/23 12:14 Heart Burn Physical Exam Vitals: Vital Signs Temp Pulse Pulse Resp BP Pulse Ox 05/16/23 08:15 98.1 F 56 L 18 121/85 95 05/16/23 08:14 94 L 05/16/23 04:00 98.0 F 67 19 107/59 94 L 05/15/23 23:54 97.9 F 66 19 106/54 98 05/15/23 20:00 98.2 F 60 19 100/50 98 05/15/23 16:00 98.1 F 58 L 16 111/78 100 05/15/23 14:00 62 16 05/15/23 12:14 99 05/15/23 12:00 62 16 109/72 99 Intake and Output 05/15/23 05/16/23 05/16/23 22:59 06:59 14:59 Intake Total 240 230.825 Balance 240 230.825 Intake: Intake, IV Titration 230.825 Amount Heparin Sod,Pork in 0.45% 230.825 NaCl 25,000 unit In 0.45 % NaCl 1 250ml.bag @ 18 UNITS/KG/HR 14.86 mls/hr IV .[id number] [facility] Rx#: [id number] Oral 240 Other: Voiding Method Toilet Toilet Toilet # Voids 2 2 - Constitutional General appearance: average body habitus, no acute distress - EENT Eyes: anicteric sclerae, EOMI ENT: hearing grossly normal - Respiratory Respiratory: bilateral: CTA - Cardiovascular mild edema to left thigh. no erythema or tenderness noted Rhythm: regular Heart sounds: normal: S1, S2 Abnormal Heart Sounds: no systolic murmur, no diastolic murmur, no rub, no S3 Gallop, no S4 Gallop, no click, no other - Gastrointestinal General gastrointestinal: soft, no tenderness - Integumentary Integumentary: no cyanotic, no rash - Neurologic Neurologic: CNII-XII intact - Musculoskeletal Musculoskeletal: strength equal bilaterally - Psychiatric Psychiatric: A&O x's 3, appropriate affect, intact judgment & insight Results CBC & Chem 7: 05/16/23 08:04 05/16/23 08:04 Labs: Abnormal Lab Results - Last 24 Hours (Table) 05/16/23 Range/Units 08:04 RBC 3.61 L (3.80-5.40) m/uL Plt Count 148 L (150-450) k/uL CT scan - chest: report reviewed Assessment and Plan (1) Pulmonary embolism Current Visit: Yes Status: Acute Priority: High Code(s): I26.99 - OTHER PULMONARY EMBOLISM WITHOUT ACUTE COR PULMONALE SNOMED Code(s): 98615349 Plan: PE/Hx DVTs: -History of May-Thurner syndrome and bilateral lower extremity DVTs. She was initially seen in consult on 02/03/22. The patient had presented with progressive pain, and swelling in the left lower extremity. Dopplers revealed extensive DVT extending from the external iliac down into the calf veins. She also had a history of right lower extremity DVT diagnosed in 09/20 after foot injury. The patient was anticoagulation with eliquis for 3 months. Of note the patient had been placed on oral contraceptives for prevention in 04/20. She had b een taking it at the time of her first clot, and continued taking it until seen by us in 02/19, at [facility] time she discontinued medication. The patient underwent thrombectomy due to persistent significant swelling and pain. She was found to have May Thurner syndrome and had an left iliac stent placed with Dr. Cho in February 2022. She was discharged on eliquis, and Plavix and aspirin. She was on plavix for 6 months, stopping in 09/21 and Eliquis for 1 year stopping in 03/22. Both of the patient's events appear to be provoked. She also had a hypercoagulable workup done, that was negative. After completion of double antiplatelet therapy, the patient was advised to stay on baby aspirin on an indefinite basis, as this has been shown to reduce risk of recurrence. -CTA chest revealed left lower lobe pulmonary emboli within the segmental and subsegmental branches. There is a wedge shaped opacity within the left lower lobe thought to represent early pulmonary infarct. No evidence for right heart strain. Minimal groundglass opacities in the left upper lobe could represent infectious versus inflammatory process. --Patient started on IV heparin. Vascular surgery consulted. -Bilateral lower extremity dopplers ordered. Spoke with vascular surgery in regards to other recommendations for evaluation of patency of iliac stent. Vascular agrees with doppler studies of lower extremities with no additional testing necessary at this time -Patient will need to be transitioned to Eliquis. In this case her thromboembolic event would be considered to be unprovoked, and we would recommend life long anticoagulation. We discussed our recommendations with patient and she verbalized understanding and is agreeable. attests: I have performed H&P and developed impression and plan of care for patient, discussed with dictator. I agree with dictated note, documented as a scribe
[2023-05-17] MEDS: ACETAMINOPHEN TAB 325 MG TAB PO PRN (08:53)
[2023-05-17] MEDS: DOCUSATE 100 MG CAP PO SCH (08:53)
[2023-05-17 08:57] VITALS: RESP 16
[2023-05-17] MEDS ORDERED: APIXABAN 5 MG TAB PO SCH (10:45)
[2023-05-17 12:21] VITALS: BP 127/81; PULSE 63; TEMP 98.4
--- NOTE | 2023-05-17 12:27 | P.DS ---
Providers Date of admission: 05/14/23 05:24 Expected date of discharge: 05/17/23 Attending physician: Jessa Saucedo Consults: 05/14/23 05:24 Consult Physician Urgent Consulting Provider: Frandy Epstein Consult Reason/Comments: pe, hx pe, pt known to Dr. Cho Do you want consulting provider notified?: Yes 05/15/23 15:41 Consult Physician Routine Consulting Provider: Pedro Pablo Jones Consult Reason/Comments: PE-hx DVT known to you Do you want consulting provider notified?: Yes Primary care physician: Randa Flores [facility] Course: Diagnosis on discharge: Pulmonary embolism with evidence of pulmonary infarct Acute chest pain and shortness of breath related to above Underlying history of May-Thurner syndrome with compression of the left iliac vein, status post stent placement by Dr. Cho in February 2022 Previous history of DVT in the left lower extremity Underlying history of hypothyroidism Underlying history of anxiety disorder Underlying history of gastroesophageal reflux disease Previous history of menorrhagia status post hysteroscopy and endometrial ablation by Dr. Liliam lópez in July 2022 Hospital course: Crys Monterroso, is a 42-year-old female who presented to [facility] emergency room with a chief complaint of chest pain and shortness of breath. She was evaluated in the emergency room vital examination on presentation revealed a temperature of 98.1 pulse 108 respiration 20 blood pressure 136/88 pulse ox 98% on room air Laboratory data revealed a white blood count of 9.7 hemoglobin 13.6 platelet count 216 BUN 11 creatinine 0.68 troponin level 0.012 Testing in the emergency room revealed EKG done in the emergency room revealed sinus tachycardia with short SC interval CT angiogram of the chest revealed left lower lobe pulmonary embolism within the segmental and subsegmental branches with wedge shaped opacity within the left lower lobe thought to represent pulmo nary infarct, no evidence of right heart strain. Patient was started on IV heparin in the emergency room. 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 Cho, after that she was told that it was safe for her to discontinue anticoagulation. Patient has been doing well until recently, she had some minimal pain in her left lower extremity few days ago that she thought was related to playing volleyball, on the day of admission patient started having chest pain and difficulty taking deep breath and she decided to come to emergency room. On review of systems patient is alert and oriented 3 in no apparent distress she is still complaining of chest pain and complaining of shortness of breath and difficulty taking deep breath, otherwise she denies any complaints there is no fever or chills no headache or dizziness no cough no palpitation no nausea or vomiting no abdominal pain no diarrhea no blood in the stools no burning with urination no frequency or urgency and no hematuria. On 05/15/2023 patient is alert and oriented 3. Patient remains on heparin drip. Patient reports improvement with shortness of breath chest pain. Awaiting hematology input. Patient was evaluated by vascular surgery no surgical intervention indicated at this time. Current vital signs temp 98.4, heart rate 73, respiratory rate 22, blood pressure 118/84 and pulse ox 96% On 05/16/2023 patient was seen and examined on the telemetry floor she is alert and oriented 3 in no apparent distress she reports some improvement in her shortness of breath and chest pain with deep inspiration otherwise she denies any complaints there is no fever or chills no headache or dizziness no palpitation no nausea or vomiting no abdominal pain no diarrhea and no urinary symptoms. Vascular surgery recommendation review. Possible transfer to oral anticoagulation in 1-2 days. We will continue to follow closely On 05/17/2023 patient was seen and examined on the medical floor she is alert and oriented 3 in no apparent distress she is reporting improvement in her chest pain and shortness of breath she was evaluated by hematology and recommendation is for Eliquis 10 mg twice daily for 7 days and then 5 mg twice daily for the next 6 months patient should follow with Dr. Flores and possibly with hematology to assess further treatment steps. Patient Condition at Discharge: Serious Plan - Discharge Summary Discharge Rx Participant: No New Discharge Prescriptions: New Docusate [Colace] 100 mg PO BID cap Apixaban [Eliquis] 10 mg PO BID tab Continue Levothyroxine Sodium [Tirosint] 137 mcg PO DAILY clonazePAM [KlonoPIN] 0.25 - 0.5 mg PO BID PRN PRN Reason: Anxiety Esomeprazole Magnesium [NexIUM 24Hr] 40 mg PO DAILY Discontinued Doxycycline [Vibramycin] 100 mg PO DIRECTED PRN PRN Reason: SKIN ISSUES Famotidine 40 mg PO BID Fluconazole [Diflucan] 150 mg PO DIRECTED PRN PRN Reason: YEAST INFECTION W/ANTIBIOTIC Discharge Medication List Levothyroxine Sodium [Tirosint] 137 mcg PO DAILY 12/24/16 [History] clonazePAM [KlonoPIN] 0.25 - 0.5 mg PO BID PRN 05/08/21 [History] Esomeprazole Magnesium [NexIUM 24Hr] 40 mg PO DAILY 09/01/21 [History] Apixaban [Eliquis] 10 mg PO BID tab 05/17/23 [Rx] Docusate [Colace] 100 mg PO BID cap 05/17/23 [Rx] Follow up Appointment(s)/Referral(s): Randa Flores MD [Primary Care Provider] - 1-2 days
--- NOTE | 2023-05-17 13:02 | P.PN ---
Subjective Progress Note Date: 05/17/23 Principal diagnosis: PE At today's visit patient is resting comfortably in bed, at bedside. Patient reports symptoms have improved. Denies shortness of breath. Heparin has been discontinued. Patient started on Eliquis. Objective - Vital Signs Vital signs: Vital Signs Temp 98.4 F 05/17/23 12:00 Pulse 63 05/17/23 12:00 Resp 16 05/17/23 12:00 BP 127/81 05/17/23 12:00 Pulse Ox 97 05/17/23 12:00 FiO2 Intake & Output 05/16/23 05/17/23 05/17/23 18:59 06:59 18:59 Intake Total 121.852 114.422 415.843 Balance 121.852 114.422 415.843 Intake: Intake, IV Titration 121.852 114.422 175.843 Amount Heparin Sod,Pork in 0.45% 121.852 114.422 175.843 NaCl 25,000 unit In 0.45 % NaCl 1 250ml.bag @ 18 UNITS/KG/HR 14.86 mls/hr IV .[id number] [facility] Rx#: [id number] Oral 240 Other: Voiding Method Toilet Toilet Toilet # Voids 2 2 - Constitutional General appearance: Present: average body habitus, no acute distress - EENT Eyes: Present: anicteric sclerae, EOMI ENT: Present: hearing grossly normal - Respiratory Details: breathing is even and unlabored - Cardiovascular Details: skin warm and dry - Integumentary Integumentary: Absent: cyanotic, rash - Neurologic Neurologic: Present: CNII-XII intact - Musculoskeletal Musculoskeletal: Present: strength equal bilaterally - Psychiatric Psychiatric: Present: A&O x's 3, appropriate affect, intact judgment & insight - Labs CBC & Chem 7: 05/16/23 08:04 05/16/23 08:04 Labs: Abnormal Lab Results - Last 24 Hours (Table) 05/17/23 Range/Units 05:18 APTT 44.0 H (22.0-30.0) sec Assessment and Plan (1) Pulmonary embolism Current Visit: Yes Status: Acute Priority: High Code(s): I26.99 - OTHER PULMONARY EMBOLISM WITHOUT ACUTE COR PULMONALE SNOMED Code(s): 43820159 Plan: PE/Hx DVTs: -History of May-Thurner syndrome and bilateral lower extremity DVTs. She was initially seen in consult on 02/03/22. The patient had presented with progressive pain, and swelling in the left lower extremity. Dopplers revealed extensive DVT extending from the external iliac down into the calf veins. She also had a history of right lower extremity DVT diagnosed in 09/20 after foot injury. The patient was anticoagulation with eliquis for 3 months. Of note the patient had been placed on oral contraceptives for prevention in 04/20. She had been taking it at the time of her first clot, and continued taking it until seen by us in 02/19, at [facility] time she discontinued medication. The patient underwent thrombectomy due to persistent significant swelling and pain. She was found to have May Thurner syndrome and had an left iliac stent placed with Dr. Cho in February 2022. She was discharged on eliquis, and Plavix and aspirin. She was on plavix for 6 months, stopping in 09/21 and Eliquis for 1 year stopping in 03/22. Both of the patient's events appear to be provoked. She also had a hypercoagulable workup done, that was negative. After completion of double antiplatelet therapy, the patient was advised to stay on baby aspirin on an indefinite basis, as this has been shown to reduce risk of recurrence. -CTA chest revealed left lower lobe pulmonary emboli within the segmental and subsegmental branches. There is a wedge shaped opacity within the left lower lobe thought to represent early pulmonary infarct. No evidence for right heart strain. Minimal groundglass opacities in the left upper lobe could represent infectious versus inflammatory process. --Patient started on IV heparin. Vascular surgery following. Heparin d/c today, transitioned to Eliquis. Discussed Eliquis administration with pt. Case management consulted for eliquis prior auth -Spoke with vascular surgery in regards to other recommendations for evaluation of patency of iliac stent. Vascular agrees with doppler studies of lower extremities with no additional testing necessary at this time. Bilateral lower extremity dopplers revealed right lower extremity negative for DVT. Left lower extremity negative for acute DVT, probable chronic thrombus within the left mid and distal femoral vein with a duplicate vein at those levels. Recommend f/u wit h Dr. Cho -In this case her thromboembolic event would be considered to be unprovoked, and we would recommend life long anticoagulation. We discussed our recommendations with patient and she verbalized understanding and is agreeable. Pt given office contact information if she wants to f/u in clinic for management of anticoagulation, but she states she will likely f/u with her PCP who managed it in the past *Pt is cleared for discharge from hem/onc standpoint once cleared by IM and other consulted medical specialities
== END 2023-05-17 13:09 | disposition home health service (06) | DRG 176 ==
LOC: EC 23:18 → 3SCARD 05-14 05:24
PROVIDERS: ADMIT Internal Medicine; ATTEND Internal Medicine
DX: I26.99 Other pulmonary embolism without acute cor pulmonale (principal); I87.1 Compression of vein; R00.0 Tachycardia, unspecified; F41.9 Anxiety disorder, unspecified; K21.9 Gastro-esophageal reflux disease without esophagitis; E03.9 Hypothyroidism, unspecified; Z79.890 Hormone replacement therapy; F17.210 Nicotine dependence, cigarettes, uncomplicated; Z79.01 Long term (current) use of anticoagulants; Z79.02 Long term (current) use of antithrombotics/antiplatelets; Z86.718 Personal history of other venous thrombosis and embolism; Z91.018 Allergy to other foods; Z87.19 Personal history of other diseases of the digestive system; Z86.79 Personal history of other diseases of the circulatory system
CPT/HCPCS: 36415; 71275; 80048; 80053; 81025; 83605; 83880; 84484; 85025; 85610; 85730; 93005; 93970; 94760; 96365; 96375; 96376; 99291